=== PATIENT | female | born 1945 | race Caucasian/White ===

== ENCOUNTER 2016-03-23 19:03 | Inpatient (IN) | payer OTHER ==
[~2016-03-23] VITALS: Ht 167.6 cm; Wt 99.4 kg
[~2016-03-23 19:03] MED LIST: ANTI-DIARRHEAL2 MG PO; ASPIRIN81 M1 PO; ATORVASTATIN CA40 MG PO; CLONAZEPAM1 MG PO; COUMADIN5 MG PO; DSS250 MG PO; KEFLEX500 MG PO; LANTUS SOL100 UNITS/ SC; LISINOPRIL10 MG PO; MIRAPEX0.25 MG PO; MULTIPLE VITAMIN PO; PAROXETINE HCL40 MG PO; PLAVIX75 MG PO; RANITIDINE ACID75 MG; RISPERDAL0.25 MG PO; SILVADENE1 %; TRAZODONE HCL50 MG PO; XALATAN0.005 % OP
--- NOTE | 2016-03-23 20:12 | DIAGNOSTIC IMAGING REPORT ---
PROCEDURE: XR CHEST 1 VIEW INDICATION: SHORTNESS OF BREATH, initial encounter TECHNIQUE: Portable AP view 07:30 p.m. COMPARISON: Chest x-ray 09/02/2014 FINDINGS: Lungs are clear. Heart and mediastinum are normal. Thorax is normal. No significant interval change. IMPRESSION: 1. Negative chest.
--- NOTE | 2016-03-23 21:10 | ED NURSING NOTES ---
Clinical Report - Nurses [facility] [address] [place] [address] 03/23/2016 19:03 [id number] TRI[facility] Triage time 19:37 Mar 23 2016. --19:38 Radha Dowling R.N. Chief Complaint: "FLU", FEVER, COUGH and BODY ACHES and possible FLU EXPOSURE. Alert. No acute distress. ( room air). --19:45 Radha Dowling R.N. 19:40 03/23/16. BP: 150/61. HR: 88. RR: 18. O2 saturation: 91%. Temp: 100.7 F. --19:45 Radha Dowling R.N. Weight: 90.7 kg estimated. Height/Length: 65 inches Estimated. BMI: 33.3. --19:36 Radha Dowling R.N. Medications Atorvastatin 80mg x1 tab daily. Combigan Ophthalmic. Hydrochlorothiazide Oral 25 mg, daily. Lantanoprost Patricia 0.005% . Lantus Subcutaneous 85 units, every AM. Lisinopril Oral 40 mg, daily. Methazolamide Oral (Tablet 25 mg) 1 tablet, x2 daily. Paroxetine 40mg x2 tabs daily. Pramipexole 0.25mg x1 tab at bedtime. Ranitidine HCl Oral 150 mg, 2x a day. RisperiDONE Oral (Tablet Dispersible 0.5 mg) 1 tablet, 2x a day. --19:48 Radha Dowling R.N. Timolol Mal Patricia 0.5% OP - 1 gtt x2 daily. TraZODone HCl Oral 50 mg, 1 1/2 tab, at bedtime. Xarelto Oral (Tablet 15 mg) 1 tablet, daily. --19:48 Radha Dowling R.N. Allergies morphine. Penicillin. Sulfa Antibiotics. --19:48 Radha Dowling R.N. History Arrived by EMS. Historian: patient. Primary physician (Dr. Retana). Onset. (2 days). 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 Oxygen administered by nonrebreather mask. Finger stick glucose performed (268). Pulse oximeter applied (88). Normal sinus rhythm. Rate: 80. PHENERGAN 6.25 mg X1 IVP given by EMS. Temp: 101.2. PAST MEDICAL HX: Has not received seasonal influenza immunization. SOCIAL HX: Former smoker. No alcohol use or drug use. FUNCTIONAL ASSESSMENT: Functional assessment performed: requires assistance with the activities of daily living; cognitive impairment- prior CVA. PMH of Stroke, affected the Right Side pt stated, pt leans to the Right. --19:45 Radha Dowling R.N. PROBLEMS: Hypoglycemia. MRSA Infection. Dyspnea. UTI - Urinary Tract Infection. DVT - Deep Venous Thrombosis. Renal Insufficiency. Bronchitis. Blindness. Wound Infection. TIA - Transient Ischemic Attack. Concussion. Abrasion(s). Fall. Colon Cancer. Tetanus Status. Vomiting. Abdominal Pain. Immunizations. LNMP - Last Normal Menstrual Period. Myofascial Strain. Contusion. Anxiety Reaction. Arthritis. Back Pain. Coronary Artery Disease. Cataracts. CVA - Cerebrovascular Accident. Depression. Diabetes Mellitus. Hyperlipidemia. Peripheral Vascular Disease. Gastroesophageal Reflux Disease. --19:49 Radha Dowling R.N. ADDITIONAL SURGERIES: Abdominal Aortic Aneurysm Repair. Appendectomy. Colostomy. Colostomy takedown . Tonsillectomy. --19:49 Radha Dowling R.N. 19:44 03/23/2016 Site #1 started prior to arrival by EMS via IV in the left hand with an 22g angiocath. --19:44 Radha Dowling R.N. PHYSICAL ASSESSMENT To room via stretcher. GENERAL / NEURO / PSYCH: Appears in pain. She has had weakness. ( body aches, pt states she hurts when we move her). RESPIRATORY: ( RR 28, 89 % Room Air). SKIN: Hot skin. ( axilla and groin are hot to touch). --19:46 Radha Dowling R.N. NURSING PROGRESS NOTES Oxygen administered by nasal cannula at 2 liters. Pulse oximeter applied. Patient gowned. Catheterized urine collected with return of yellow-colored clear urine; sample sent to lab for urinalysis. Specimen labeled in the presence of the patient (collected by PEDRO Garcia with assist of PEDRO Sawyer). Flu swab obtained by RN. Labeled in the presence of the patient and sent to lab (collected by PEDRO Sawyer). Patient identifiers checked. Call light placed in reach. Side rails up x 2. Bed placed in lowest position. Brakes of bed on. ( Dr. Ordonez has assessed pt on arrival.). --19:48 Radha Dowling R.N. ( Repositioned, Socks applied. [place].). --19:48 Radha Dowling R.N. ( Med list in progress. Cannot be confirmed at this time.). --19:49 Radha Dowling R.N. 20:11 03/23/2016 Site #2 started via IV in the right antecubital space with an 20g angiocath, with aseptic technique and good blood return; one attempt. Blood drawn: rainbow set and cultures x1. Sent to the lab. Saline lock flushed with 10 mL saline (lactic and acetone). --20:11 Radha Dowling R.N. 20:12 03/23/2016 Started bag #1 1000 mL IV Fluids IV NS (Saline); at 1000 mL/hr over 1 hour(s) via site #2 via IV pump. IV patency established. IV site checked: no pain, redness, or swelling. IV flushed thoroughly pre- and post-medication administration. Completed per protocol. --20:12 Radha Dowling R.N. ( Lab here for draw. BC #2.). --20:12 Radha Dowling R.N. 20:12 03/23/16. BP: 124/73. HR: 88. RR: 18. --20:13 Radha Dowling R.N. 22:18 03/23/16. BP: 135/60. HR: 80. --22:19 Radha Dowling R.N. The patient is resting quietly and sleeping. --22:19 Radha Dowling R.N. 21:50 03/23/2016 IV Fluids IV NS Discontinued: bag #1 completed. Total amount infused: 100 mL. --22:20 Radha Dowling R.N. 22:52 03/23/2016 Tylenol (Acetaminophen) PO 650 mg given. Allergies verified and confirmed 5 rights. --22:52 Radha Dowling R.N. 22:53 03/23/2016 Started bag #1 1000 mL IV Fluids IV LACTATED RINGERS; at 125 mL/hr over 8 hour(s) via site #2 via IV pump. --22:57 Radha Dowling R.N. 23:37 03/23/16. BP: 132/45. HR: 85. RR: 20. O2 saturation: 94%. Temp: 100.2 F. Pain level now 510. --23:38 Radha Dowling R.N. 2 liters by nasal cannula reapplied. Pulse oximeter applied. Reassurance given. ( pt placed in a hospital bed and moved to room 6. Oral care and IV hydration. Pt is dry.). --23:38 Radha Dowling R.N. Care transferred and report given (PEDRO Christian). --23:38 Radha Dowling R.N. 00:20 pt sleeping with HOB elevated. no resp distress noted. RR at 24 unlabored. --00:44 Anahi Snyder R.N. 02:00 03/24/16. BP: 117/48. HR: 70. RR: 20 (unlabored). O2 saturation: 95% at 2 liters/minute. O2 started via nasal cannula. --02:17 Anahi Snyder R.N. 02:00 pt sleeping soundly, HOB elevated. no resp distress noted. --02:17 Anahi Snyder R.N. 03:00 03/24/16. BP: 134/58. HR: 70. RR: 22 (unlabored). O2 saturation: 95% at 2 liters/minute. O2 started via nasal cannula. --03:45 Anahi Snyder R.N. 03:00 pt continues to sleep with HOB elevated. no resp distress noted. --03:45 Anahi Snyder R.N. 05:30 pt sleeping with HOB elevated. no resp distress noted. --05:50 Anahi Snyder R.N. 05:00 03/24/16. BP: 141/57. HR: 71. RR: 24 (unlabored). O2 saturation: 95% at 2 liters/minute. O2 started via nasal cannula. --05:56 Anahi Snyder R.N. pt called she was wet and cold. pt's attends saturated with urine and some stool. pt cleaned with 2 person assist. new attends and gown placed on pt. 2 chucks placed under pt. --06:45 Anahi Snyder R.N. 06:45 03/24/16. Temp: 101.8 F (oral). --06:45 Anahi Snyder R.N. 06:50 03/24/2016 Tylenol (Acetaminophen) PO Tablets 650 mg given. Allergies verified and confirmed 5 rights. --07:14 Anahi Snyder R.N. 07:00 03/24/2016 IV Fluids IV LACTATED RINGERS Discontinued: bag #2 completed. Total amount infused: 1000 ml mL. IV patency established. IV site checked: no pain, redness, or swelling. IV flushed thoroughly. --07:16 Anahi Snyder R.N. at 06:55 pt had another BM, pt cleaned placed new attends, sent stool sample to lab, changes linens and chucks with 2 person assist. Total time with 1 RN 45 min, total time with 2 RNs 30 min. --07:21 Anahi Snyder R.N. Care transferred and report given (Selene, PEDRO). --07:22 Anahi Snyder R.N. ( Pt resting quietly, not disturbed at this time. IVF's infusing on pump). --07:35 Selene Tripathi R.N. 07:15 03/24/2016 Started bag #3 1000 mL IV Fluids IV LACTATED RINGERS; at 125 mL/hr via site #2 via IV pump. (CORRECTION ON IV BAG NUMBER, ACTUALLY #3 IS FULL AT THIS TIME, [id number]). --07:41 Selene Tripathi R.N. ( Assisted patient with positioning and gave some water. Spoke with MD who states patient can have a clear diet advanced as tolerated.). --09:01 Chano Calderón R.N. 09:46 03/24/16. ( Pt incontinent of large amount of liquid stools, 2 person assist to clean pt up, jake care and linen change done. Pt still passing liquid, incontinent stools so placed on side with lots of padding, and will recheck in a little while, and clean if needed.). --09:46 Selene Tripathi R.N. 09:52 03/24/2016 Tamiflu PO 75 mg given. Confirmed 5 rights. --10:02 Selene Tripathi R.N. 09:53 03/24/2016 Demerol (Meperidine HCl) IVP 12.5 mg given over 1 minute(s) via site #2. Confirmed 5 rights. --10:03 Selene Tripathi R.N. 10:17 03/24/16. BP: 94/50. HR: 71. RR: 21. O2 saturation: 94% on nasal cannula at 2 liters/minute. Pain level now: 010. --10:18 Selene Tripathi R.N. 11:00 03/24/16. BP: 94/33. HR: 71. RR: 20. O2 saturation: 93%. --12:07 Leida Chester 12:09 03/24/16. BP: 116/40. HR: 69. RR: 20. O2 saturation: 97%. --12:09 Leida Chester 17:25 03/24/2016 IV Fluids IV LACTATED RINGERS Continued: upon transfer at the rate of 125 mL/hr. 0 mL remaining bag #2. IV patency established. IV site checked: no pain, redness, or swelling. IV flushed thoroughly. --19:25 Chano Calderón R.N. DISPOSITION / DISCHARGE Departure time: 15:Mar 24 2016. Admitted to the Critical Care Unit. ( Report given to OFFICER LIEUTENANT. Transportation called.). --15:01 Chano Calderón R.N. 14:00 03/24/16. BP: 131/41. HR: 72. RR: 18. O2 saturation: 94%. Temp: 98.7 F. Pain level now: 210. --15:01 Chano Calderón R.N. Locked/Released at 03/24/2016 19:25 by Chano Calderón R.N.
--- NOTE | 2016-03-23 21:10 | ED ORDER SUMMARY ---
..... Patient: GISSELLE WILSON OrderSheet [facility] VisitID: [id number] [address] [place] [address] 71y, F Registration Date/Time: 03/23/2016 ORDER SHEET Weight: 90.7 kg (estimated) Allergies: morphine, Penicillin, Sulfa Antibiotics GENERAL ORDERS: Chest 1V Urgent (19:31 03/23/2016 Ajit Cruz) (19:46 MCampbell) Blood Culture (No) (N/A) Urgent (19:33 03/23/2016 Ajit Cruz) (Ack 19:59 DEouse ER Tech1) (20:12 SBalde R.N.) CBC w Diff Urgent (:03/23/2016 Ajit Cruz) (Ack 19:59 NHouse ER Tech1) (20:12 SBalde R.N.) CMP Urgent (19:03/23/2016 Ajit Cruz) (Ack 19:59 NHouse ER Tech1) (20:12 SBalde R.N.) UA-Culture if indicated Urgent (19:33 03/23/2016 Ajit Cruz) (19:56 SBalde R.N.) (Ack 19:59 NHouse ER Tech1) Amylase Urgent (19:03/23/2016 Ajit Cruz) (Ack 19:59 NHouse ER Tech1) (20:12 SBalde R.N.) Lipase Urgent (19:03/23/2016 Ajit Cruz) (Ack 19:59 NHouse ER Tech1) (20:12 SBalde R.N.) Acetone, Serum Urgent (19:33 03/23/2016 Ajit Cruz) (Ack 19:59 NHouse ER Tech1) (20:12 SBalde R.N.) Lactic Acid for Sepsis Protocol Urgent (19:03/23/2016 Ajit Cruz) (Ack 19:59 NHouse ER Tech1) (20:12 SBalde R.N.) PCT (Procalcitonin) Urgent (19:03/23/2016 Ajit Cruz) (Ack 19:59 NHouse ER Tech1) (20:12 SBalde R.N.) Rapid Influenza Screen (Nasal Pharyngeal) (nose) Urgent (20:32 03/23/2016 SBalde R.N. per protocol) (Ack 21:13 NHouse ER Tech1) (21:13 NHouse ER Tech1) Stool for C. Difficile Urgent (07:21 03/24/2016 LSullivan R.N. verbal order read back to Junito Cruz) (Ack 7:27 Bjorn) (7:35 LSullivan R.N.) Blood Culture (No) (N/A) Urgent (09:45 03/24/2016 Ajit Cruz) (Ack 10:06 TBergley) (10:34 TBergley) ABG (G) Urgent (09:46 03/24/2016 Ajit Cruz) (10:06 TBergley) MEDICATION ORDERS: Tylenol PO 650 mg (NOW) (22:20 03/23/2016 María Elena Harp verbal order read back to Ajit Cruz) (22:52 SBalde R.N.) - (Tamiflu 75 mg PO x 1 now) (09:46 03/24/2016 Ajit Cruz) (10:02 Zach R.N.) IV FLUIDS: IV NS : initial bolus none -, then 1000 mL/hr for X1 (NOW) (19:32 03/23/2016 Ajit Cruz) (20:12 RODOLFOalde R.N.) Zofran IV 4 mg (NOW) (19:34 03/23/2016 Ajit Cruz) (Ack 20:12 SBalde R.N.) IV Lactated Ringers : initial bolus none -, then 125 mL/hr (NOW) (22:53 03/23/2016 María Elena RMargauxNMargaux verbal order read back to Ajit Cruz) (22:57 María Elena MichaelN.) Demerol IV 12.5 mg (HIGH ALERT MEDICATION, NOW) (09:17 03/24/2016 Ajit Cruz) (10:03 Lizbetivan R.N.) ORDER SHEET NOTES: [Electronically signed by Chano Calderón R.N. (19:25 03/24/2016)] [Electronically signed by Yahir Ordonez Dr. (22:50 03/24/2016)] [Electronically locked/signed by Chano Calderón R.N. (19:25 03/24/2016)]
--- NOTE | 2016-03-23 21:10 | ED ORDER SUMMARY ---
..... Patient: GISSELLE WILSON OrderSheet [facility] VisitID: [id number] [address] [place] [address] 71y, F Registration Date/Time: 03/23/2016 ORDER SHEET Weight: 90.7 kg (estimated) Allergies: morphine, Penicillin, Sulfa Antibiotics GENERAL ORDERS: Chest 1V Urgent (19:31 03/23/2016 Ajit Cruz) (19:46 MCampbell) Blood Culture (No) (N/A) Urgent (19:33 03/23/2016 Ajit Cruz) (Ack 19:59 WVouse ER Tech1) (20:12 SBalde R.N.) CBC w Diff Urgent (:03/23/2016 Ajit Cruz) (Ack 19:59 NHouse ER Tech1) (20:12 SBalde R.N.) CMP Urgent (19:03/23/2016 Ajit Cruz) (Ack 19:59 NHouse ER Tech1) (20:12 SBalde R.N.) UA-Culture if indicated Urgent (19:33 03/23/2016 Ajit Cruz) (19:56 SBalde R.N.) (Ack 19:59 NHouse ER Tech1) Amylase Urgent (19:03/23/2016 Ajit Cruz) (Ack 19:59 NHouse ER Tech1) (20:12 SBalde R.N.) Lipase Urgent (19:03/23/2016 Ajit Cruz) (Ack 19:59 NHouse ER Tech1) (20:12 SBalde R.N.) Acetone, Serum Urgent (19:33 03/23/2016 Ajit Cruz) (Ack 19:59 NHouse ER Tech1) (20:12 SBalde R.N.) Lactic Acid for Sepsis Protocol Urgent (19:03/23/2016 Ajit Cruz) (Ack 19:59 NHouse ER Tech1) (20:12 SBalde R.N.) PCT (Procalcitonin) Urgent (19:03/23/2016 Ajit Cruz) (Ack 19:59 NHouse ER Tech1) (20:12 SBalde R.N.) Rapid Influenza Screen (Nasal Pharyngeal) (nose) Urgent (20:32 03/23/2016 SBalde R.N. per protocol) (Ack 21:13 NHouse ER Tech1) (21:13 NHouse ER Tech1) Stool for C. Difficile Urgent (07:21 03/24/2016 LSullivan R.N. verbal order read back to Junito Cruz) (Ack 7:27 Bjorn) (7:35 LSullivan R.N.) Blood Culture (No) (N/A) Urgent (09:45 03/24/2016 Ajit Cruz) (Ack 10:06 TBergley) (10:34 TBergley) ABG (G) Urgent (09:46 03/24/2016 Ajit Cruz) (10:06 TBergley) MEDICATION ORDERS: Tylenol PO 650 mg (NOW) (22:20 03/23/2016 María Elena Harp verbal order read back to Ajit Cruz) (22:52 SBalde R.N.) - (Tamiflu 75 mg PO x 1 now) (09:46 03/24/2016 Ajit Cruz) (10:02 Zach R.N.) IV FLUIDS: IV NS : initial bolus none -, then 1000 mL/hr for X1 (NOW) (19:32 03/23/2016 Ajit Cruz) (20:12 RODOLFOalde R.N.) Zofran IV 4 mg (NOW) (19:34 03/23/2016 Ajit Cruz) (Ack 20:12 SBalde R.N.) IV Lactated Ringers : initial bolus none -, then 125 mL/hr (NOW) (22:53 03/23/2016 María Elena RMargauxNMargaux verbal order read back to Ajit Cruz) (22:57 María Elena MichaelN.) Demerol IV 12.5 mg (HIGH ALERT MEDICATION, NOW) (09:17 03/24/2016 Ajit Cruz) (10:03 Lizbetivan R.N.) ORDER SHEET NOTES: [Electronically signed by Chano Calderón R.N. (19:25 03/24/2016)] [Electronically signed by Yahir Ordonez Dr. (22:50 03/24/2016)] [Electronically locked/signed by Chano Calderón R.N. (19:25 03/24/2016)]
--- NOTE | 2016-03-23 21:10 | ED CLINICAL REPORT ---
Clinical Report - Physicians/Mid Levels [facility] [address] [place] [address] 03/23/2016 19:03 Patient: GISSELLE WILSON Time Seen: 19:14; initial patient contact. Arrived- By ambulance. Historian- patient. HISTORY OF PRESENT ILLNESS Chief Complaint: "FLU" and possible FLU EXPOSURE. This started yesterday and is still present. It was gradual in onset. The patient has had a cough, sinus drainage, nasal congestion, fever and chills. She has had muscle aches and a nasal discharge. No skin rash, headache, sore throat or difficulty breathing. The patient has had contact with a sick individual with suspected "flu". Similar symptoms previously: None. Recent medical care: Not recently seen/assessed. REVIEW OF SYSTEMS The patient has had fever, chills, fatigue, sinus pain and fatigue. She has had diarrhea and nausea. No palpitations, calf pain or abdominal pain. All systems otherwise negative, except as recorded above. PAST HISTORY Hypoglycemia. MRSA Infection. Dyspnea. UTI - Urinary Tract Infection. DVT - Deep Venous Thrombosis. Renal Insufficiency. Bronchitis. Blindness. Wound Infection. TIA - Transient Ischemic Attack. Concussion. Abrasion(s). Fall. Colon Cancer. Tetanus Status. Vomiting. Abdominal Pain. Immunizations. LNMP - Last Normal Menstrual Period. Myofascial Strain. Contusion. Anxiety Reaction. Arthritis. Back Pain. Coronary Artery Disease. Cataracts. CVA - Cerebrovascular Accident. Depression. Diabetes Mellitus. Hyperlipidemia. Peripheral Vascular Disease. Gastroesophageal Reflux Disease. SURGERIES: Abdominal Aortic Aneurysm Repair. Appendectomy. Colostomy. Colostomy takedown . Tonsillectomy. Medications: Timolol Mal Patricia 0.5% OP - 1 gtt x2 daily. TraZODone HCl Oral 50 mg, 1 1/2 tab, at bedtime. Xarelto Oral (Tablet 15 mg) 1 tablet, daily. Atorvastatin 80mg x1 tab daily. Combigan Ophthalmic. Hydrochlorothiazide Oral 25 mg, daily. Lantanoprost Patricia 0.005% . Lantus Subcutaneous 85 units, every AM. Lisinopril Oral 40 mg, daily. Methazolamide Oral (Tablet 25 mg) 1 tablet, x2 daily. Paroxetine 40mg x2 tabs daily. Pramipexole 0.25mg x1 tab at bedtime. Ranitidine HCl Oral 150 mg, 2x a day. RisperiDONE Oral (Tablet Dispersible 0.5 mg) 1 tablet, 2x a day. Allergies: morphine. Penicillin. Sulfa Antibiotics. SOCIAL HISTORY Former smoker. No alcohol use or drug use. ADDITIONAL NOTES The nursing notes have been reviewed with agreement regarding the chief complaint, PMH and patient medications and allergies. PHYSICAL EXAM Vital Signs: 03/23/2016 19:40 BP: 150/61. HR: 88. RR: 18. O2 saturation: 91%. Temp: 100.7 F. Have been reviewed. Hypertensive. Heart rate normal. Respiratory rate normal. Febrile. Oxygen saturation low. Appearance: Alert. ( ill appearing). Eyes: Eyes normal inspection. ENT: Dry mucous membranes present. CVS: Normal heart rate and rhythm. Heart sounds normal. Respiratory: No respiratory distress. Breath sounds normal. Abdomen: Soft. Mild tenderness diffusely. No guarding or rebound tenderness. Skin: Poor skin turgor, mild. Extremities: No calf tenderness. No lower extremity edema. Neuro: Oriented X 3. LABS, X-RAYS, AND EKG Chest X-ray: No acute disease. Normal lung markings present. No infiltrate. Views: AP. The X-rays were independently viewed by me, interpreted by the radiologist and contemporaneously by me and discussed with the radiologist. Interpretation time: 2029. Laboratory Tests: ABG: (NEREIDA: 03/24/2016 09:46) ( MsgRcvd 03/24/2016 10:09) Final results Test Result Flag Units (Reference) FIO2 0.21 L % (20-101) MODIFIED MOUNIKA TEST POSITIVE? YES ABG RESP RATE SETTINGS 16 /MIN ARTERIAL BLOOD GAS pH 7.42 (7.35-7.45) ABG PCO2 39.4 mmHg (35-45) ABG PO2 55.4 L mmHg (60.0-80.0) ABG BASE EXCESS 1.3 H mmol/L (-6.0--6.0) ABG HCO3 25.8 mmol/L (20.0-26.0) ABG TCO2 27.0 mmol/L (24.0-30.0) ABG MaOpX0a 50.1 H mmHg (7.0-14.0) *NOTE: Normal rangeis based on aFIO2 of 21% ABG SAT O2 90.5 L % (95.1-100.0) ABG TOTAL HEMOGLOBIN 11.1 L g/dL (12.0-16.0) ABG O2 HEMOGLOBIN 88.6 L % (95.0-100.0) ABG CARBOXYHEMOGLOBIN 1.8 H % (0.5-1.5) ABG METHEMOGLOBIN 0.3 L % (0.4-1.5) ABG RHEMOGLOBIN 9.3 % UA-Culture if indicated: (NEREIDA: 03/23/2016 19:30) ( MsgRcvd 03/23/2016 19:54) Final results Test Result Flag Units (Reference) URINE COLOR YELLOW URINE APPEARANCE CLEAR URINE GLUCOSE TRACE (NEGATIVE) URINE BILIRUBIN NEGATIVE (NEGATIVE) URINE KETONE NEGATIVE (NEGATIVE) URINE SPECIFIC GRAVITY 1.020 (1.010-1.030) URINE PH 6.0 (5.0-8.0) URINE PROTEIN TRACE (NEGATIVE) URINE UROBILINOGEN 0.2 EU/dL (0.2-1.0) URINE NITRITE NEGATIVE (NEGATIVE) URINE BLOOD 2+ (NEGATIVE) URINE LEUK ESTERASE NEGATIVE (NEGATIVE) URINE RBC NONE SEEN rbc/hpf (0-1) URINE WBC RARE wbc/hpf (0-1) URINE EPITHELIAL CELLS 0-1 EPI/hpf (0-5) URINE BACTERIA NONE SEEN (NONE SEEN) URINE COMMENT CULT NOT INDICATED 1+ AMORPHOUSURINE CULTURES ARE SET-UP BASED ON THE FOLLOWING CRITERIA:POSITIVE NITRITEPOSITIVE LEUKOCYTE ESTERASEGREATER THAN 10 WHITE BLOOD CELLSMODERATE (2+) OR GREATER BACTERIA CBC w Diff: (NEREIDA: 03/23/2016 20:09) ( MsgRcvd 03/23/2016 20:26) Final results Test Result Flag Units (Reference) WHITE BLOOD COUNT 6.9 K/uL (4.5-11.5) RED BLOOD COUNT 4.50 M/uL (4.00-5.20) HEMOGLOBIN 12.9 gm/dL (12.0-16.0) HEMATOCRIT 38.7 % (36.0-46.0) MEAN CELL VOLUME 86 fL (80-100) MEAN CORPUSCULAR HGB 29 pg (26-34) MEAN CORPUSCULAR HGB CONC 33 g/dL (31-37) RED CELL DISTRIBUTION WIDTH 12.6 % (11.6-14.8) PLATELET COUNT 62 L K/uL (150-400) NEUTROPHIL % 78.1 H % (50-75) LYMPH % 10.8 L % (25-40) MONO % 10.3 % (3-14) EOSINOPHIL % 0.4 % (0-4) BASOPHIL % 0.4 % (0-2) Lactate, Serum: (NEREIDA: 03/23/2016 20:09) ( [facility] 03/23/2016 20:51) Final results Test Result Flag Units (Reference) LACTIC ACID 0.9 mmol/L (0.4-2.0) [id number]: (NEREIDA: 03/23/2016 20:09) ( [facility] 03/23/2016 21:50) Final results Test Result Flag Units (Reference) PROCALCITONIN <0.5 ng/mL (0-0.5) PCT Concentration: Interpretation : Risk/option for action PCT <=0.5 ng/mL : Systemic : Low risk forinfection(sepsis): progression to severeis not likely. : systemic infection.Local bacterial : CAUTION-PCT levelsinfection is : below 0.5 ng/mL do notpossible. : exclude an infection,because localizedinfections (withoutsystemic signs) may beassociated with suchlow levels. If PCT ismeasured very earlyafter a bacterialchallenge (usually <6hours), these valuesmay still be low. Inthis case PCT shouldbe re-assessed 6-24hours later. PCT >0.5 and : Systemic infection: Moderate risk for<= 2 ng/mL : (sepsis) is : progression to severepossible, but : systemic infection.other conditions : The patient should beare known to : closely monitoredelevate PCT. : both clinically andby re-assessing PCTwithin 6-24 hours. PCT > 2 ng/mL : Systemic infection: High risk for(sepsis) is likely: progression to severeunless other : systemic infection.causes are known. : PCT >= 10 ng/mL : Important systemic: High likelihood ofinflammatory : severe sepsis orresponse, almost : septic shock.exclusively due to:severe bacterial :sepsis or septic :shock. : CMP: (NEREIDA: 03/23/2016 20:09) ( MsgRcvd 03/23/2016 21:26) Final results Test Result Flag Units (Reference) GLUCOSE 194 H mg/dL (70-110) BUN 20 H mg/dL (7-18) CREATININE 1.5 H mg/dL (0.6-1.3) Estimated GFR 36.59 mL/min Estimated GFR- 44.35 mL/min Note: Persistent reduction over 3 months in eGFR<60 mL/min/1.73 m2 defines CKD. Patients with eGFR values>=60 mL/min/1.73 m2 may also have CKD if evidence ofpersistent proteinuria. Additional information may be foundat www.kidney.org. SODIUM 136 mmol/L (136-145) POTASSIUM 4.6 mmol/L (3.5-5.1) CHLORIDE 101 mmol/L (98-107) CARBON DIOXIDE 29 mmol/L (21-32) CALCIUM 7.9 L mg/dL (8.5-10.1) TOTAL PROTEIN 6.9 g/dL (6.4-8.2) ALBUMIN 3.2 L g/dL (3.3-5.0) BILIRUBIN, TOTAL 0.5 mg/dL (0.0-1.0) ALKALINE PHOSPHATASE 57 U/L (46-116) AST (SGOT) 23 U/L (15-37) ALT (SGPT) 22 U/L (12-78) LIPASE 177 U/L (73-393) AMYLASE 70 U/L (25-115) ACETONE, SERUM QUALITATIVE NEGATIVE (NEGATIVE) Stool for C. Difficile: (NEREIDA: 03/24/2016 07:10) ( [facility] 03/24/2016 08:19) Final results Test Result Flag Units (Reference) CDT SOURCE STOOL C-DIFFICILE TOXIN A/B CDT RESULT:: NEGATIVE Rapid Influenza Screen: (NEREIDA: 03/23/2016 19:16) ( [facility] [place] 03/23/2016 20:50) Final results SPECIMEN DESCRIPTION: NOSE Test Result Flag Units (Reference) RAPID INFLUENZA SCREEN CALLED TO: CARLOS -- DATE: 03/23/16 INFLUENZA A: POSITIVE SCREEN FOR INFLUENZA A INFLUENZA B: NEGATIVE SCREEN FOR INFLUENZA B . PROGRESS AND PROCEDURES Course of Care: 22:45 03/23/16. Case signed out to Dr. Ortez. Pt has Flu A and issue is hypoxia, 88% on RA and is not on home O2. No beds here and we are actively searching for a bed at another hospital. Discussed case with on-call health care provider, (13:[address] Nugent(covering for Dr. Retana). Will place in obs.). Reviewed test results and need for additional work-up. Agreed upon decision to place in observation. Health care provider will see patient in hospital. Observation orders written. Disposition: Observation in Acute Care. Condition: stable. CLINICAL IMPRESSION Influenza type A with upper respiratory infection and gastroenteritis. Hypoxia. (Electronically signed by Yahir Ordonez Dr. 03/24/2016 22:50)
[2016-03-24 15:12] VITALS: BP 137/67
[2016-03-24] MEDS ORDERED: LANTUS SOL100 UNITS/ (16:35)
[2016-03-24] MEDS ORDERED: SERTRALINE HCL50 MG PO (16:39)
[2016-03-24] MEDS ORDERED: ATORVASTATIN CA40 MG PO (16:47)
[2016-03-24] MEDS ORDERED: ACID REDUCER150 MG PO (16:47)
[2016-03-24] MEDS ORDERED: RISPERDAL1 MG PO (16:48)
[2016-03-24] MEDS ORDERED: MIRAPEX0.25 MG PO (16:48)
[2016-03-24] MEDS ORDERED: HYDROCHLOROTHIA25 MG PO (16:50)
[2016-03-24] MEDS ORDERED: VENTOLIN HFA IN (16:50)
[2016-03-24] MEDS ORDERED: XARELTO10 MG PO (16:51)
[2016-03-24] MEDS ORDERED: NOVOLOG PE100 UNITS/ SC (16:52)
[2016-03-24] MEDS ORDERED: NUEDEXTA1 CAP PO (16:53)
[2016-03-24 18:54] VITALS: BP 120/50
[2016-03-24 22:29] VITALS: BP 132/66
--- NOTE | 2016-03-24 22:50 | ED MAR SUMMARY ---
..... Medication Administration Record Located Within [facility] [address] [place] [address] Patient: GISSELLE WILSON Visit ID: [id number] 71y, F Weight: 90.7 kg Height/Length: 65 in BMI: 33.3 ALLERGIES: morphine, Penicillin, Sulfa Antibiotics Start 20:12 03/23/2016 Radha Dowling R.N., Stop 21:50 03/23/2016 aRdha Dowling R.N. Medication Administered: IV NS (SALINE), Dose: IV Fluids over 1 hour(s), Rate: 1000 mL/hr, Dispensed: 1000 mL bag, Site: #2 right AC. Medication Ordered: IV NS : initial bolus none -, then 1000 mL/hr for X1 (NOW). Given 22:52 03/23/2016 Radha Dowling R.N. Medication Administered: TYLENOL [PO] (ACETAMINOPHEN), Dose: 650 mg PO. Medication Ordered: Tylenol PO 650 mg (NOW). Start 22:53 03/23/2016 Radha Dowling R.N., Stop 07:00 03/24/2016 Anahi Snyder R.N. Medication Administered: IV LACTATED RINGERS, Dose: IV Fluids over 8 hour(s), Rate: 125 mL/hr, Dispensed: 1000 mL bag, Site: #2 right AC. Medication Ordered: IV Lactated Ringers : initial bolus none -, then 125 mL/hr (NOW). Given 06:50 03/24/2016 Anahi Snyder R.N. Medication Administered: TYLENOL [PO] (ACETAMINOPHEN), Dose: 650 mg Tablets PO. Medication Ordered: Tylenol PO 650 mg (NOW). Start 07:15 03/24/2016 Selene Tripathi R.N., Continued Upon Transfer 17:25 03/24/2016 Chano Calderón R.N. Medication Administered: IV LACTATED RINGERS, Dose: IV Fluids, Rate: 125 mL/hr, Dispensed: 1000 mL bag, Site: #2 right AC. Medication Ordered: IV Lactated Ringers : initial bolus none -, then 125 mL/hr (NOW). Given 09:52 03/24/2016 Selene Tripathi R.N. Medication Administered: TAMIFLU [PO], Dose: 75 mg PO. Medication Ordered: - (Tamiflu 75 mg PO x 1 now). Given 09:53 03/24/2016 Selene Tripathi R.N. Medication Administered: DEMEROL [IVP] (MEPERIDINE HCL), Dose: 12.5 mg IVP over 1 minute(s), Site: #2 right AC. Medication Ordered: Demerol IV 12.5 mg (HIGH ALERT MEDICATION, NOW).
--- NOTE | 2016-03-24 22:50 | ED MED RECONCILIATION SUMMARY ---
Patient: GISSELLE WILSON Medication Reconciliation Report [facility] VisitID: [id number] [place] [address] 71y, F Registration Date/Time: 03/23/2016 Weight: 90.7 kg Height/Length: 65 in. BMI: 33.3 ALLERGIES: morphine, Penicillin, Sulfa Antibiotics The patient's Home Medications are listed below: THE FOLLOWING MEDICATIONS NEED TO BE RECONCILED: Atorvastatin 80mg x1 tab daily Combigan Ophthalmic Hydrochlorothiazide Oral 25 mg, daily Lantanoprost Patricia 0.005% Lantus Subcutaneous 85 units, every AM Lisinopril Oral 40 mg, daily Methazolamide Oral (25 mg) 1 tablet, x2 daily Paroxetine 40mg x2 tabs daily Pramipexole 0.25mg x1 tab at bedtime Ranitidine HCl Oral 150 mg, 2x a day RisperiDONE Oral (0.5 mg) 1 tablet, 2x a day Timolol Mal Patricia 0.5% OP - 1 gtt x2 daily TraZODone HCl Oral 50 mg, 1 1/2 tab, at bedtime Xarelto Oral (15 mg) 1 tablet, daily The source(s) of the original Home Medication information: Not obtained. The following Medications were given to the patient in the Emergency Department: IV NS IV Fluids bolus 0, then 1000 mL/hr, administered: 03/23/2016 8:12:00 PM Tylenol [PO] PO 650 mg, administered: 03/23/2016 10:52:00 PM IV LACTATED RINGERS IV Fluids bolus 0, then 125 mL/hr, administered: 03/23/2016 10:53:00 PM Tylenol [PO] PO 650 mg, administered: 03/24/2016 6:50:00 AM IV LACTATED RINGERS IV Fluids bolus 0, then 125 mL/hr, administered: 03/24/2016 7:15:00 AM Tamiflu [PO] PO 75 mg, administered: 03/24/2016 9:52:00 AM Demerol [IVP] IVP 12.5 mg, administered: 03/24/2016 9:53:00 AM The following Medications were prescribed to the patient: None.
--- NOTE | 2016-03-24 22:50 | ED DISCHARGE INSTRUCTIONS ---
Patient: GISSELLE WILSON General Instructions [facility] VisitID: [id number] [address] [place] [address] 71y, F Registration Date/Time: 03/23/2016 Influenza type A with upper respiratory infection and gastroenteritis. Hypoxia. (Electronically signed by Yahir Ordonez Dr. 03/24/2016 22:50)
--- NOTE | 2016-03-24 22:50 | ED MAR SUMMARY ---
..... Medication Administration Record [facility] [address] [place] [address] Patient: GISSELLE WILSON Visit ID: [id number] 71y, F Weight: 90.7 kg Height/Length: 65 in BMI: 33.3 ALLERGIES: morphine, Penicillin, Sulfa Antibiotics Start 20:12 03/23/2016 Radha Dowling R.N., Stop 21:50 03/23/2016 Radha Dowling R.N. Medication Administered: IV NS (SALINE), Dose: IV Fluids over 1 hour(s), Rate: 1000 mL/hr, Dispensed: 1000 mL bag, Site: #2 right AC. Medication Ordered: IV NS : initial bolus none -, then 1000 mL/hr for X1 (NOW). Given 22:52 03/23/2016 Radha Dowling R.N. Medication Administered: TYLENOL [PO] (ACETAMINOPHEN), Dose: 650 mg PO. Medication Ordered: Tylenol PO 650 mg (NOW). Start 22:53 03/23/2016 Radha Dowling R.N., Stop 07:00 03/24/2016 Anahi Snyder R.N. Medication Administered: IV LACTATED RINGERS, Dose: IV Fluids over 8 hour(s), Rate: 125 mL/hr, Dispensed: 1000 mL bag, Site: #2 right AC. Medication Ordered: IV Lactated Ringers : initial bolus none -, then 125 mL/hr (NOW). Given 06:50 03/24/2016 Anahi Snyder R.N. Medication Administered: TYLENOL [PO] (ACETAMINOPHEN), Dose: 650 mg Tablets PO. Medication Ordered: Tylenol PO 650 mg (NOW). Start 07:15 03/24/2016 Selene Tripathi R.N., Continued Upon Transfer 17:25 03/24/2016 Chano Calderón R.N. Medication Administered: IV LACTATED RINGERS, Dose: IV Fluids, Rate: 125 mL/hr, Dispensed: 1000 mL bag, Site: #2 right AC. Medication Ordered: IV Lactated Ringers : initial bolus none -, then 125 mL/hr (NOW). Given 09:52 03/24/2016 Selene Tripathi R.N. Medication Administered: TAMIFLU [PO], Dose: 75 mg PO. Medication Ordered: - (Tamiflu 75 mg PO x 1 now). Given 09:53 03/24/2016 Selene Tripathi R.N. Medication Administered: DEMEROL [IVP] (MEPERIDINE HCL), Dose: 12.5 mg IVP over 1 minute(s), Site: #2 right AC. Medication Ordered: Demerol IV 12.5 mg (HIGH ALERT MEDICATION, NOW).
--- NOTE | 2016-03-24 22:50 | ED MED RECONCILIATION SUMMARY ---
Patient: GISSELLE WILSON Medication Reconciliation Report [facility] VisitID: [id number] [place] [address] 71y, F Registration Date/Time: 03/23/2016 Weight: 90.7 kg Height/Length: 65 in. BMI: 33.3 ALLERGIES: morphine, Penicillin, Sulfa Antibiotics The patient's Home Medications are listed below: THE FOLLOWING MEDICATIONS NEED TO BE RECONCILED: Atorvastatin 80mg x1 tab daily Combigan Ophthalmic Hydrochlorothiazide Oral 25 mg, daily Lantanoprost Patricia 0.005% Lantus Subcutaneous 85 units, every AM Lisinopril Oral 40 mg, daily Methazolamide Oral (25 mg) 1 tablet, x2 daily Paroxetine 40mg x2 tabs daily Pramipexole 0.25mg x1 tab at bedtime Ranitidine HCl Oral 150 mg, 2x a day RisperiDONE Oral (0.5 mg) 1 tablet, 2x a day Timolol Mal Patricia 0.5% OP - 1 gtt x2 daily TraZODone HCl Oral 50 mg, 1 1/2 tab, at bedtime Xarelto Oral (15 mg) 1 tablet, daily The source(s) of the original Home Medication information: Not obtained. The following Medications were given to the patient in the Emergency Department: IV NS IV Fluids bolus 0, then 1000 mL/hr, administered: 03/23/2016 8:12:00 PM Tylenol [PO] PO 650 mg, administered: 03/23/2016 10:52:00 PM IV LACTATED RINGERS IV Fluids bolus 0, then 125 mL/hr, administered: 03/23/2016 10:53:00 PM Tylenol [PO] PO 650 mg, administered: 03/24/2016 6:50:00 AM IV LACTATED RINGERS IV Fluids bolus 0, then 125 mL/hr, administered: 03/24/2016 7:15:00 AM Tamiflu [PO] PO 75 mg, administered: 03/24/2016 9:52:00 AM Demerol [IVP] IVP 12.5 mg, administered: 03/24/2016 9:53:00 AM The following Medications were prescribed to the patient: None.
--- NOTE | 2016-03-24 22:50 | ED DISCHARGE INSTRUCTIONS ---
Patient: GISSELLE WILSON General Instructions [facility] VisitID: [id number] [address] [place] [address] 71y, F Registration Date/Time: 03/23/2016 Influenza type A with upper respiratory infection and gastroenteritis. Hypoxia. (Electronically signed by Yahir Ordonez Dr. 03/24/2016 22:50)
--- NOTE | 2016-03-24 23:15 | HISTORY AND PHYSICAL ---
ADMITTED: 03/24/2016 CHIEF COMPLAINT: 1. Weakness 2. Dehydration 3. Severe diarrhea 4. Nausea and vomiting 5. Fevers, chills, and body aches HISTORY OF PRESENT ILLNESS: This is a 71-year-old female who a couple of days ago started having nausea, vomiting, and severe diarrhea that was watery. She states that simultaneously she started having fevers, chills, and body aches. She has been also having abdominal cramps and an intermittent headache. She does complain of a cough, but it is nonproductive. She says that she only has a mild rhinorrhea and denies any sore throat, earache, or shortness of breath. MEDICAL/SURGICAL HISTORY: 1. Type 2 diabetes, insulin dependent. 2. Recurrent UTIs. 3. Diabetic neuropathy. 4. Anxiety. 5. Vascular insufficiency of the intestine with abdominal pain. 6. Dyslipidemia. 7. Chronic shoulder pain. 8. Allergic rhinitis. 9. Depression. 10. CVA with residual blindness. 11. Hypertension. 12. Glaucoma. 13. Colon cancer, status post partial resection of colon with colostomy and colostomy takedown. 14. Retinal artery occlusion. 15. Inguinal hernia repair. 16. Colonoscopy with biopsies. 17. Bilateral tubal ligations. 18. T&A. 19. C-sections x2. MEDICATIONS: 1. Colace 250 mg p.o. daily. 2. Lantus 90 units subcutaneous daily. 3. Sertraline 50 mg p.o. daily. 4. Lisinopril 40 mg p.o. daily. 5. Ranitidine 150 mg p.o. b.i.d. 6. Latanoprost 0.005% one drop each eye daily. 7. Trazodone 50 mg 1-1/2 tablets p.o. at bedtime. 8. Multivitamin 1 tablet p.o. daily. 9. Imodium 2 tablets p.o. p.r.n. diarrhea. 10. Atorvastatin 40 mg 1 tablet p.o. daily. 11. Risperidone 1 mg p.o. b.i.d. 12. Clonazepam 1 mg p.o. t.i.d. 13. Mirapex 0.25 mg 1 tablet p.o. b.i.d. 14. Hydrochlorothiazide 25 mg p.o. daily. 15. ProAir inhaler 2 puffs inhaled q.4 hours p.r.n. 16. Xarelto 20 mg p.o. daily. 17. NovoLog 15 units subcutaneous with dinner. 18. Nuedexta 20-10 mg 1 tablet p.o. b.i.d. ALLERGIES: 1. PENICILLIN. 2. MORPHINE. 3. CIPRO. 4. BACTRIM. 5. BYETTA. 6. CODEINE. SOCIAL HISTORY: This is a single female who is retired and disabled. She denies any alcohol use. Quit smoking approximately 10 years ago. She does use marijuana intermittently. FAMILY HISTORY: Mother and father are still alive, otherwise noncontributory. REVIEW OF SYSTEMS: A full 12-point review of systems was done and was negative except as per HPI. PHYSICAL EXAMINATION: VITAL SIGNS: Blood pressure is 137/67, pulse is 76, respiratory rate is 20, oxygen saturation is 99% on 2 liters, temperature is 37.6 degrees Celsius. GENERAL: This is an elderly female lying in bed in no apparent distress. HEENT: Head is atraumatic, normocephalic. Pupils equal, round, and reactive to light and accommodation bilaterally. Extraocular muscles are intact bilaterally. Tympanic membranes are nonerythematous. ------- cone of light bilaterally. Oropharynx is tacky and dry, but there is no erythema or exudates. NECK: Trachea is midline. There is no JVD. HEART: S1, S2, regular rate and rhythm. No S3, S4, gallops, or rubs. There is a 2/6 systolic murmur increased at the base. LUNGS: Clear to auscultation bilaterally. ABDOMEN: Soft, nontender, nondistended without hepatosplenomegaly or masses. Bowel sounds are hyperactive. EXTREMITIES: There is no peripheral edema. LAB/IMAGING: White blood cell count 6.9, hemoglobin 12.9, hematocrit 38.7, platelets are 62. Sodium 136, potassium 4.6, chloride 101, bicarbonate 29, BUN of 20, creatinine of 1.5, glucose of 194, calcium 7.9, total protein 6.9, albumin 3.2. Total bilirubin 0.5, alkaline phosphatase 57, AST of 23, ALT of 22, lipase is 177, amylase is 70. Procalcitonin is less than 0.5. Acetone is negative. Lactic acid is 0.9. UA is negative, except for 2+ blood. Flu is influenza A positive. C. difficile is negative. An ABG was done with a pH of 7.42, pCO2 of 39.4. A chest x-ray was negative. IMPRESSION: This is a 71-year-old female with a history of type 2 diabetes, hypertension, pseudobulbar affect, presenting to the hospital with complaints of fever, chills, severe nausea and vomiting, admitted to the hospital for: 1. Dehydration from gastroenteritis. 2. Influenza A with hypoxia. 3. I anticipate this patient is going to require at least a 2-night stay to recover from this illness as she is continuing to have ongoing diarrhea. PLAN: 1. Fluids, Electrolytes, and Nutrition: We will do intravenous fluids for rehydration. 2. Cardiorespiratory, stable: Continue home medications. 3. Gastrointestinal: Gastroenteritis. We will treat supportively and monitor for any complications. Gastroesophageal reflux disease: Continue home medications. 4. Endocrine: Type 2 diabetes. We will slightly decrease her home insulin levels and then titrate as necessary while in the hospital. 5. Psychiatric: The patient has pseudoaffective disorder and will be continued on her Nuedexta and sertraline. 6. Prophylaxis: The patient will be on sequential compression devices for deep venous thrombosis prophylaxis. She is also taking Xarelto incidentally as well. She is starting to advance her diet again; however, will be on famotidine for gastrointestinal ulcer prophylaxis. 7. CODE STATUS: DO NOT RESUSCITATE.
[2016-03-25 02:45] VITALS: BP 148/63
[2016-03-25 06:43] VITALS: BP 133/57
[2016-03-25 10:17] VITALS: BP 128/52
[2016-03-25 14:42] VITALS: BP 104/45
--- NOTE | 2016-03-25 18:39 | DIAGNOSTIC IMAGING REPORT ---
PROCEDURE: US VENOUS - BILATERAL EXT INDICATION: DEVT 01/2016. Recheck since thrombocytopenia TECHNIQUE: Color Doppler duplex imaging of the deep and superficial venous system without and with compression. COMPARISON: Right lower extremity venous duplex ultrasound 01/20/2015. FINDINGS: RIGHT LOWER EXTREMITY: Resolving smaller right lower extremity DVT with residual chronic thrombus in the popliteal vein. Remaining deep and superficial veins are within normal limits. LEFT LOWER EXTREMITY: Deep and superficial venous system of the left lower extremity is within normal limits. There is no evidence of deep vein thrombosis or superficial thrombophlebitis. IMPRESSION: 1. Improved right lower extremity DVT with small residual chronic thrombus in the popliteal vein 2. No evidence of a DVT in the left lower extremity 3. Results discussed with Dr. Soni.
[2016-03-25 18:41] VITALS: BP 118/48
--- NOTE | 2016-03-25 23:45 | Progress Note ---
Subjective General Patient feels mildly improved today. No nausea, vomitting, constipation. Continues to have diarrhea. No chest pain or SOB. Physical Exam Vital Signs / I&Os Vital Signs Date Time Temp Pulse Resp B/P Pulse O2 O2 Flow FiO2 Ox Delivery Rate 03/25 1841 37.2 66 20 118/48 95 03/25 1442 36.9 72 20 104/45 97 03/25 1017 38.1 73 21 128/52 99 Nasal 2.0 Cannula 03/25 0730 Nasal 2.0 Cannula 03/25 0643 37.5 76 21 133/57 97 Nasal 2.0 Cannula 03/25 0245 37.1 81 16 148/63 98 Nasal 2.0 Cannula I&O 03/25 0000 03/24 1600 03/24 0800 Intake Total 490 Output Total Balance 490 General Appearance Alert, Oriented X3, No acute distress Lungs Clear to auscultation, Normal air movement Cardiovascular Regular rate and rhythm, Normal S1 and S2, 3/6 holosystolic murmur increased at the base. Abdomen Normal bowel sounds, Soft, No tenderness Extremities 1+ bilateral LE edema. Assessment and Plan Problem List 1. Influenza A Plan Tamiflu. Improving. 2. Hypoxia Plan Will wean O2 as tolerated. 3. Diarrhea Plan C. Diff negative. Gastroenteritis. Will monitor. 4. Dehydration Plan Improved. 5. Acute renal failure Plan Resolved. 6. Bacteremia Plan 2/4 bottles with gram positive cocci. Started vanco empirically pending final culture results. pending. 7. Thrombocytopenia Plan Will stop xarelto. Consider bleeding vs. TTP vs. DIC vs. other. Labs ordered. 8. DVT (deep venous thrombosis) Plan US today showed chronic DVT's. Will not start anticoagulant for now due to thrombocytopenia.
[2016-03-25 23:53] VITALS: BP 122/49
[2016-03-26 02:48] VITALS: BP 111/55
[2016-03-26 07:01] VITALS: BP 143/60
[2016-03-26 10:12] VITALS: BP 116/50
--- NOTE | 2016-03-26 10:55 | Progress Note ---
Subjective General This is an 71-year-old female who a couple of days ago started having nausea, vomiting, and severe diarrhea that was watery. She states that simultaneously she started having fevers, chills, and body aches. She has been also having abdominal cramps and an intermittent headache. She does complain of a cough, but it is nonproductive. She says that she only has a mild rhinorrhea and denies any sore throat, earache, or shortness of breath. Patient has been with some improvement overall. Diarrhea is improved. Breathing ok sats good. Sitting up in chair this am did well. Had blood cx pos and waiting on identification/sens ? contamination. Physical Exam Vital Signs / I&Os Vital Signs Date Time Temp Pulse Resp B/P Pulse O2 O2 Flow FiO2 Ox Delivery Rate 03/26 1012 98.8 65 21 116/50 97 Room Air 03/26 0925 Room Air 03/26 0701 98.8 68 20 143/60 99 Room Air 03/26 0248 98.4 69 16 111/55 96 Nasal Cannula 03/25 2353 97.9 62 20 122/49 97 Nasal Cannula 03/25 2000 Room Air 03/25 1841 99.0 66 20 118/48 95 03/25 1442 98.4 72 20 104/45 97 I&O 03/26 0000 03/25 1600 03/25 0800 Intake Total 2261 1383 Output Total 615 1000 1275 Balance 1646 -1000 108 General Appearance Alert, Cooperative HEENT Normal exam Lungs Clear to auscultation, Normal air movement Cardiovascular Regular rate and rhythm Abdomen Soft, No tenderness Extremities +1 edema bilaterally LAB Results Laboratory Tests 03/26 03/26 0435 0435 Chemistry Plasma Sodium (136 - 145 mmol/L) 138 Plasma Potassium (3.5 - 5.1 mmol/L) 4.1 Plasma Chloride (98 - 107 mmol/L) 105 CO2 (Enzymatic) (21 - 32 mmol/L) 25 BUN (7 - 18 mg/dL) 29 Creatinine (0.6 - 1.3 mg/dL) 1.3 Est GFR ( Amer) (mL/min) 52.32 Est GFR (Non-Af Amer) (mL/min) 43.17 Glucose (70 - 110 mg/dL) 156 Plasma Calcium (8.5 - 10.1 mg/dL) 7.3 Lactate Dehydrogenase (117 - 222 U/L) 175 Coagulation INR (0.8 - 1.2) 0.9 APTT (24 - 34 SECONDS) 31 Fibrinogen (193 - 455 mg/dL) 434 D-Dimer, Quantitative (0.27 - 0.52 ug/mLFEU) 1.12 Hematology WBC (4.5 - 11.5 K/uL) Pending 3.2 RBC (4.00 - 5.20 M/uL) Pending 4.01 Hgb (12.0 - 16.0 gm/dL) 11.4 Hct (36.0 - 46.0 %) 34.2 MCV (80 - 100 fL) 85 MCH (26 - 34 pg) 29 RDW (11.6 - 14.8 %) 12.8 Plt Count Pending Neut % (Auto) (50 - 75 %) 44.1 Lymph % (Auto) (25 - 40 %) 37.8 [place] % (Auto) (3 - 14 %) 11.9 Eos % (Auto) (0 - 4 %) 5.6 Baso % (Auto) (0 - 2 %) 0.6 Blood Smear Review Pending Plt Count, EDTA (150 - 400 K/uL) 48 PUBS MCHC (31 - 37 g/dL) 34 Smear Review By Pending Serology Hepatitis C Antibody Pending HIV 1&2 Antibody Screen (NEGATIVE) NEGATIVE HIV P24 Ag, Qual (NEGATIVE) NEGATIVE Microbiology Date/Time Procedure - Status Source Growth 03/25 1929 Urine Culture - RES URINE CC Assessment and Plan Problem List 1. Influenza A Plan Is improved normal sats 2. Hypoxia Plan Now on room air. 3. Diarrhea Plan Better. No more diarrhea 4. Dehydration Plan improved 5. Bacteremia Plan Coag neg staff in 2 bottles 1 sat and 2nd set totally neg x 48hrs and looks like contamination. 6. Thrombocytopenia Plan Has low blood counts 7. Diabetes mellitus type 2 in obese Plan stable.
--- NOTE | 2016-03-26 11:00 | Provider's Discharge Care Plan ---
Problem, Goal, Plan Problem List 1. Bacteremia Instructions: appears to have been contamination 2. Hypoxia Instructions: Follow up as directed, improved 3. Influenza A Instructions: Is improved 4. Diarrhea Instructions: Follow up as directed, Take meds as directed, Improved
--- NOTE | 2016-03-27 00:56 | DISCHARGE SUMMARY ---
ADMIT DATE: 03/24/2016 DISCHARGE DATE: 03/26/2016 ADMITTING DIAGNOSES: 1. Influenza. 2. Possible urinary tract infection. 3. Nausea and vomiting. 4. Weakness. 5. Dehydration. 6. Diabetes type 2. 7. Pseudobulbar affect. 8. Hypertension. DISCHARGE DIAGNOSES: 1. Influenza. 2. Possible urinary tract infection. 3. Nausea and vomiting. 4. Weakness. 5. Dehydration. 6. Diabetes type 2. 7. Pseudobulbar affect. 8. Hypertension. BRIEF HISTORY: Please refer to admit dictation for details. HOSPITAL COURSE: This is a 71-year-old female who presented to the emergency department with flu symptoms with a chronic history of diabetes, hypertension, pseudobulbar affect. She was admitted to the hospital, treated with IV fluids and also her home medications, as well as insulin. She is with a history of DVTs and she has been treated with Xarelto. She had a hospital course that was notable for continued issues of diarrhea. She was C. difficile negative. She was found to have a blood culture that came back positive x2. It was gram-positive cocci in the first set. The second set, however, at 48 hours remained negative. Both of the first set with the gram-positive cocci were coag-negative staph consistent with contamination. The patient was appearing well. She was feeling better. She no longer had any diarrhea. She was not having any fevers. At time of discharge, her vital signs, temperature was 98.8, heart rate of 65, respirations 21, blood pressure 116/50 and saturating 97% on room air. She was feeling better and no concerns for nursing. Her lungs were clear. Her heart was regular rate and rhythm. Abdomen was soft and nontender. Extremities had trace 1+ edema. The patient was discharged to home. DISCHARGE INSTRUCTIONS/MEDICATIONS: Her discharge medications included clonazepam, 1 p.o. t.i.d., docusate 250 mg p.o. daily, loperamide 2 mg after each loose stool p.r.n. diarrhea, lisinopril 40 mg p.o. daily, multivitamin 1 p.o. daily, trazodone 50 mg p.o. daily, Xalatan drops 1 drop at bedtime to her eyes, glargine 90 units daily, sertraline 50 mg p.o. daily, ranitidine 150 p.o. b.i.d., atorvastatin 80 mg p.o. daily, risperidone 1 mg p.o. b.i.d., hydrochlorothiazide 25 mg p.o. daily, albuterol sulfate dosed 2 puffs q.4 hours p.r.n., Xarelto 20 mg p.o. daily, insulin 15 units with meals daily, Nuedexta 1 p.o. b.i.d. The patient is to follow up with her primary doctor in 1-2 weeks.
== END 2016-03-26 14:10 | disposition home or self-care (01) | DRG 194 ==
LOC: ED SRH 19:03 → TRANS SRH 03-24 13:05 → CC SRH 03-24 15:05
PROVIDERS: ADMIT Family Medicine
DX: J10.1 Influenza due to other identified influenza virus with other respiratory manifestations (principal); R09.02 Hypoxemia; J10.2 Influenza due to other identified influenza virus with gastrointestinal manifestations; N39.0 Urinary tract infection, site not specified; N17.9 Acute kidney failure, unspecified; I82.531 Chronic embolism and thrombosis of right popliteal vein; E86.0 Dehydration; I10 Essential (primary) hypertension; F48.2 Pseudobulbar affect; E11.40 Type 2 diabetes mellitus with diabetic neuropathy, unspecified; D69.6 Thrombocytopenia, unspecified; Z79.01 Long term (current) use of anticoagulants
CPT/HCPCS: 85241; 85244; 90004; 90047; 90065; 90074; 90098; 90100; 90112; 90301; 90364; 90469; 91400; 91556; 91672; 92031; 92132; 92235; 92530; 92680; 92863; 93004; 94001; 94050; 94060; 95059; 95067; 99777

== ENCOUNTER 2016-05-26 11:28 | Emergency (ER) | payer OTHER ==
[~2016-05-26 11:28] MED LIST changes: +ACID REDUCER150 MG PO; +HYDROCHLOROTHIA25 MG PO; +LANTUS SOL100 UNITS/; +NOVOLOG PE100 UNITS/ SC; +NUEDEXTA1 CAP PO; +RISPERDAL1 MG PO; +SERTRALINE HCL50 MG PO; +VENTOLIN HFA IN; +XARELTO10 MG PO
--- NOTE | 2016-05-26 13:09 | DIAGNOSTIC IMAGING REPORT ---
PROCEDURE: XR CHEST 1 VIEW INDICATION: CHEST PAIN TECHNIQUE: Portable AP view 12:06 p.m. COMPARISON: Chest 03/23/2016 and 09/02/2014 FINDINGS: Lungs are clear. Heart and mediastinum are normal. Thorax is normal. IMPRESSION: 1. Negative chest.
--- NOTE | 2016-05-26 18:47 | ED ORDER SUMMARY ---
..... Patient: GISSELLE WILSON OrderSheet [facility] VisitID: [id number] [address] [place] [address] 71y, F Registration Date/Time: 05/26/2016 ORDER SHEET Weight: 90.7 kg (stated) Allergies: morphine, Penicillin, Sulfa Antibiotics GENERAL ORDERS: Old Records (EKG) (11:45 05/26/2016 Viviane CRUZ) (11:52 RKaruga) Assistant Attorney General (Continuous) (11:05/26/2016 Viviane CRUZ) (12:00 LWhalen R.N.) Chest 1V Urgent (11:55 05/26/2016 Viviane CRUZ) (Ack 11:57 LTapper) (12:00 LWhalen R.N.) UA-Culture if indicated Urgent (11:05/26/2016 Viviane CRUZ) (Ack 11:57 LTapper) (12:00 LWhalen R.N.) Cardiac Panel Stat (11:05/26/2016 Viviane CRUZ) (Ack 11:57 LTapper) (12:00 LWhalen R.N.) BNP Urgent (11:55 05/26/2016 Viviane CRUZ) (Ack 11:57 LTapper) (12:00 LWhalen R.N.) TSH Urgent (11:05/26/2016 Viviane CRUZ) (Ack 11:57 LTapper) (12:00 LWhalen R.N.) Oxygen (2 L/min) (NC) (11:05/26/2016 Viviane CRUZ) (12:00 LWhalen R.N.) Pulse oximeter (11:05/26/2016 Viviane CRUZ) (12:00 LWhalen R.N.) EKG - ER Stat (11:05/26/2016 Viviane CRUZ) (Ack 11:57 LTapper) (12:00 LWhalen R.N.) Blood Culture (No) (N/A) Urgent (12:06 05/26/2016 Viviane CRUZ) (Ack 12:18 LTapper) (13:58 LWhalen R.N.) Lactate, Serum Urgent (12:06 05/26/2016 Viviane CRUZ) (Ack 12:18 LTapper) (13:58 LWhalen R.N.) PCT (Procalcitonin) Urgent (12:06 05/26/2016 Viviane CRUZ) (Ack 12:18 LTapper) (13:58 LWhalen R.N.) CRP Urgent (12:06 05/26/2016 Viviane CRUZ) (Ack 12:18 LTapper) (13:58 LWhalen R.N.) - (Bolus 500 cc NS then 250 cc per hour.) (13:29 05/26/2016 Viviane CRUZ) (Ack 13:31 LTapper) (13:58 LWhalen R.N.) MEDICATION ORDERS: IV FLUIDS: IV Saline Lock (11:55 05/26/2016 Viviane CRUZ) (12:00 LWhalen R.N.) Insulin Reg IV 8 units (NOW) (13:30 05/26/2016 Viviane CRUZ) (14:02 LWhalen R.N.) Rocephin IV 2 gm/50mL (NOW) (13:31 05/26/2016 Viviane CRUZ) (14:00 LWhalen R.N.) Insulin Reg IV 5 units (NOW) (15:34 05/26/2016 Viviane CRUZ) (15:49 LWhalen R.N.) ORDER SHEET NOTES: [Electronically signed by Chano Calderón R.N. (19:18 05/27/2016)] [Electronically signed by Ethan Hsu MD (20:53 05/27/2016)] [Electronically locked/signed by Chano Calderón R.N. (19:18 05/27/2016)]
--- NOTE | 2016-05-26 18:47 | ED CLINICAL REPORT ---
Clinical Report - Physicians/Mid Levels [facility] [address] [place] [address] 05/26/2016 11:30 Patient: GISSELLE WILSON Time Seen: 11:48 May 26 2016. Arrived- By ambulance. Historian- patient and EMS personnel. CPT: ER phys charges level 5 plus (#[id number]). EKG interpretation (#[id number]). HISTORY OF PRESENT ILLNESS Chief Complaint: DIZZINESS and WEAKNESS. ( Acute weakness while at breakfast this morning. [place] fine yesterday and when she got up this morning.Was sitting at the table when she felt acute vertigo and pre-syncope. 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 She still feels weak. She had CP on the way to the ER associated with dyspnea and nausea. Those symptoms have resolved also.). (weakness). Severity described as moderate at its maximum. When seen in the E.D., severity described as moderate. Modifying factors- worsened by turning head and standing up. Relieved by rest and nothing. Described as a sense of rotation and feeling off balance, light-headed, faint and weak all over. This started just prior to arrival and is still present. The patient has had nausea. (Chest pain developed in route to ER. Resolved now. Blood sugars have been in the 400's recently.). Similar symptoms previously: None. Recent medical care: Not recently seen/assessed. REVIEW OF SYSTEMS No headache, double vision, fainting episodes, head injury or palpitations. No black stools, bloody stools, fever or sore throat or throat. No cough, abdominal pain, diarrhea, difficulty with urination or skin rash. No enlarged lymph nodes, chills or joint pain. The patient has had weakness,, weakness, and diabetic symptoms. She has had difficulty walking. She has had moderate central chest pain (Transient and resolved now.). She has had difficulty breathing (tansient and resolved now.). She has had difficulty walking. No prior hx of vertigo. All systems otherwise negative, except as recorded above. PAST HISTORY ( Diabetes mellitus. Hypertension. Hypoxia. Influenza. Hypoglycemia. MRSA Infection. Dyspnea. UTI - Urinary Tract Infection. DVT - Deep Venous Thrombosis. Renal Insufficiency. Bronchitis. Blindness. Wound Infection. TIA - Transient Ischemic Attack. Concussion. Abrasion(s). Fall. Colon Cancer. Tetanus Status. Vomiting. Abdominal Pain. Immunizations. LNMP - Last Normal Menstrual Period. Myofascial Strain. Contusion. Anxiety Reaction. Arthritis. Back Pain. Coronary Artery Disease. Cataracts. CVA - Cerebrovascular Accident. Depression. Diabetes Mellitus. Hyperlipidemia. Peripheral Vascular Disease. Gastroesophageal Reflux Disease. --11:39 Chano Calderón R.N. ADDITIONAL SURGERIES: Abdominal Aortic Aneurysm Repair. Appendectomy. Colostomy. Colostomy takedown . Tonsillectomy.). Medications: Atorvastatin 80mg x1 tab daily. Combigan Ophthalmic. Hydrochlorothiazide Oral 25 mg, daily. Lantanoprost Patricia 0.005% . Lantus Subcutaneous 85 units, every AM. Lisinopril Oral 40 mg, daily. Methazolamide Oral (Tablet 25 mg) 1 tablet, x2 daily. Paroxetine 40mg x2 tabs daily. Pramipexole 0.25mg x1 tab at bedtime. Ranitidine HCl Oral 150 mg, 2x a day. RisperiDONE Oral (Tablet Dispersible 0.5 mg) 1 tablet, 2x a day. Timolol Mal Patricia 0.5% OP - 1 gtt x2 daily. TraZODone HCl Oral 50 mg, 1 1/2 tab, at bedtime. Xarelto Oral (Tablet 15 mg) 1 tablet, daily. Allergies: morphine. Penicillin. Sulfa Antibiotics. SOCIAL HISTORY History of drug use: marijuana. No alcohol use. Lives in own home with care takers. Dr Retana PCP. ADDITIONAL NOTES The nursing notes have been reviewed. PHYSICAL EXAM Vital Signs: 05/26/2016 11:36 BP: 141/79. HR: 58. RR: 20. O2 saturation: 98%. Temp: 98.4 F. Appearance: Alert. No acute distress. Eyes: Pupils equal, round and reactive to light. No nystagmus. Extraocular movements normal. ENT: Normal ENT inspection. TM's normal. Moist mucous membranes. Pharynx normal. Neck: Normal inspection. Neck supple. CVS: Normal heart rate and rhythm. Heart sounds normal. Pulses normal. Respiratory: No respiratory distress. Breath sounds normal. Abdomen: Soft and nontender. Back: Normal inspection. Skin: Skin warm. Normal skin color. No rash. Extremities: Extremities exhibit normal ROM. No calf tenderness. No lower extremity edema. Neuro: Alert. Oriented X 3. Mood/affect normal. Speech normal. Cranial nerves normal (as tested). No cerebellar findings. No motor deficit. No sensory deficit. Reflexes normal. (Decreased vision(Chronic)). LABS, X-RAYS, AND EKG EKG: Normal sinus rhythm. Normal P waves. Normal OSWALDO. Normal QRS complex. Q waves in lead V1 and V2 (vs low voltage.). Normal axis. Normal ST and T waves. The study has been interpreted contemporaneously. The study has been independently viewed by me. The EKG appears to be a good tracing. Laboratory Tests: UA-Culture if indicated: (NEREIDA: 05/26/2016 11:35) ( MsgRcvd 05/26/2016 12:20) Final results Test Result Flag Units (Reference) URINE COLOR YELLOW URINE APPEARANCE CLOUDY URINE GLUCOSE 3+ (NEGATIVE) URINE BILIRUBIN NEGATIVE (NEGATIVE) URINE KETONE NEGATIVE (NEGATIVE) URINE SPECIFIC GRAVITY 1.015 (1.010-1.030) URINE PH 5.5 (5.0-8.0) URINE PROTEIN NEGATIVE (NEGATIVE) URINE UROBILINOGEN 0.2 EU/dL (0.2-1.0) URINE NITRITE NEGATIVE (NEGATIVE) URINE BLOOD TRACE-INTACT (NEGATIVE) URINE LEUK ESTERASE NEGATIVE (NEGATIVE) URINE RBC RARE rbc/hpf (0-1) URINE WBC 10-15 wbc/hpf (0-1) URINE EPITHELIAL CELLS 3-5 EPI/hpf (0-5) URINE BACTERIA MANY (4+) (NONE SEEN) URINE COMMENT CULTURE INDICATED URINE CULTURES ARE SET-UP BASED ON THE FOLLOWING CRITERIA:POSITIVE NITRITEPOSITIVE LEUKOCYTE ESTERASEGREATER THAN 10 WHITE BLOOD CELLSMODERATE (2+) OR GREATER BACTERIA CBC w Diff: (NEREIDA: 05/26/2016 11:45) ( MsgRcvd 05/26/2016 12:02) Final results Test Result Flag Units (Reference) WHITE BLOOD COUNT 7.1 K/uL (4.5-11.5) RED BLOOD COUNT 4.52 M/uL (4.00-5.20) HEMOGLOBIN 12.8 gm/dL (12.0-16.0) HEMATOCRIT 37.8 % (36.0-46.0) MEAN CELL VOLUME 84 fL (80-100) MEAN CORPUSCULAR HGB 28 pg (26-34) MEAN CORPUSCULAR HGB CONC 34 g/dL (31-37) RED CELL DISTRIBUTION WIDTH 13.0 % (11.6-14.8) PLATELET COUNT 95 L K/uL (150-400) NEUTROPHIL % 66.2 % (50-75) LYMPH % 20.8 L % (25-40) MONO % 7.9 % (3-14) EOSINOPHIL % 4.6 H % (0-4) BASOPHIL % 0.5 % (0-2) [id number]: (NEREIDA: 05/26/2016 11:45) ( [facility] 05/26/2016 12:58) Final results Test Result Flag Units (Reference) C-REACTIVE PROTEIN 0.8 mg/dL (0.0-0.9) Lactate, Serum: (NEREIDA: 05/26/2016 13:00) ( [facility] 05/26/2016 13:58) Final results Test Result Flag Units (Reference) LACTIC ACID 0.8 mmol/L (0.4-2.0) [id number]: (NEREIDA: 05/26/2016 11:45) ( [facility] 05/26/2016 13:00) Final results Test Result Flag Units (Reference) PROCALCITONIN <0.5 ng/mL (0-0.5) PCT Concentration: Interpretation : Risk/option for action PCT <=0.5 ng/mL : Systemic : Low risk forinfection(sepsis): progression to severeis not likely. : systemic infection.Local bacterial : CAUTION-PCT levelsinfection is : below 0.5 ng/mL do notpossible. : exclude an infection,because localizedinfections (withoutsystemic signs) may beassociated with suchlow levels. If PCT ismeasured very earlyafter a bacterialchallenge (usually <6hours), these valuesmay still be low. Inthis case PCT shouldbe re-assessed 6-24hours later. PCT >0.5 and : Systemic infection: Moderate risk for<= 2 ng/mL : (sepsis) is : progression to severepossible, but : systemic infection.other conditions : The patient should beare known to : closely monitoredelevate PCT. : both clinically andby re-assessing PCTwithin 6-24 hours. PCT > 2 ng/mL : Systemic infection: High risk for(sepsis) is likely: progression to severeunless other : systemic infection.causes are known. : PCT >= 10 ng/mL : Important systemic: High likelihood ofinflammatory : severe sepsis orresponse, almost : septic shock.exclusively due to:severe bacterial :sepsis or septic :shock. : BNP: (NEREIDA: 05/26/2016 11:45) ( MdgRcvd 05/26/2016 12:23) Final results Test Result Flag Units (Reference) B-TYPE NATRIURETIC PEPTIDE 13.5 pg/ml (5-100) CHEM 13 PANEL: (NEREIDA: 05/26/2016 11:45) ( MsgRcvd 05/26/2016 12:23) Final results Test Result Flag Units (Reference) GLUCOSE 421 H mg/dL (70-110) BUN 30 H mg/dL (7-18) CREATININE 1.9 H mg/dL (0.6-1.3) Estimated GFR 27.86 mL/min Estimated GFR- 33.76 mL/min Note: Persistent reduction over 3 months in eGFR<60 mL/min/1.73 m2 defines CKD. Patients with eGFR values>=60 mL/min/1.73 m2 may also have CKD if evidence ofpersistent proteinuria. Additional information may be foundat [email or web address].org. SODIUM 134 L mmol/L (136-145) POTASSIUM 5.3 H mmol/L (3.5-5.1) CHLORIDE 98 mmol/L (98-107) CARBON DIOXIDE 32 mmol/L (21-32) CALCIUM 8.5 mg/dL (8.5-10.1) TOTAL PROTEIN 7.0 g/dL (6.4-8.2) ALBUMIN 3.2 L g/dL (3.3-5.0) BILIRUBIN, TOTAL 0.4 mg/dL (0.0-1.0) ALKALINE PHOSPHATASE 83 U/L (46-116) AST (SGOT) 12 L U/L (15-37) ALT (SGPT) 20 U/L (12-78) CPK 67 U/L (24-260) MAGNESIUM 1.6 L mg/dL (1.8-2.4) TROPONIN I <0.05 ng/mL (0.00-1.5) TROPONIN REFERENCE RANGE:<0.1 NEGATIVE0.1-1.5 INDETERMINANT>1.5 POSITIVE THYROID STIMULATING HORMONE 1.755 uIU/mL (0.30-3.74) . PROGRESS AND PROCEDURES Course of Care: Pt stable at this time with mild weakness as only symptom in the ER. Heplock Pt on xaralto Rocephin 2g IV Insulin 7units IV then 5 units IV for high blood sugar. 18:46 05/26/16. Dr Nugent has seen the patient in the ER and is OK with sending the patient home as long as she has enough family to be there to keep her safe as she is a high fall risk due to vertigo. Discussed with her daughter and she will stay with her Mother as long as needed for safety. Patient/family counseled. Old medical records ordered. Disposition: Discharged. Condition: unchanged. CLINICAL IMPRESSION Benign positional vertigo- acute, right ear. Chronic, poorly controlled type 1 diabetes with hyperglycemia. No coma. Acute urinary tract infection with cystitis. Acute generalized weakness. Dehydration. INSTRUCTIONS Warnings: Further evaluation is necessary. GENERAL WARNINGS: Return or contact your physician immediately if your condition worsens or changes unexpectedly, if not improving as expected, or if other problems arise. Your Current Medications: CONTINUE TAKING THE FOLLOWING MEDICATIONS: Atorvastatin 80mg x1 tab daily*. Combigan Ophthalmic. Hydrochlorothiazide Oral : 25 mg daily. Lantanoprost Patricia 0.005% *. Lantus Subcutaneous : 85 units every AM. Lisinopril Oral : 40 mg daily. Methazolamide Oral : Tablet 25 mg, 1 tablet x2 daily. Paroxetine 40mg x2 tabs daily*. Pramipexole 0.25mg x1 tab at bedtime*. Ranitidine HCl Oral : 150 mg 2x a day. RisperiDONE Oral : Tablet Dispersible 0.5 mg, 1 tablet 2x a day. Timolol Mal Patricia 0.5% OP - 1 gtt x2 daily*. TraZODone HCl Oral : 50 mg, 1 1/2 tab at bedtime. Xarelto Oral : Tablet 15 mg, 1 tablet daily. Prescription Medications: Macrobid 100 mg: Take 1 capsule orally every 12 hours for 7 days. No refills. Substitution is permissible. Scopolamine patch behind ear q 72 hours prn vertigo. # 6. Understanding of the discharge instructions verbalized by patient and family. Follow-up with: Shravan Retana MD, Family Practice, , [facility], [address] [place] [address] Follow up in one week. Call for an appointment. (Electronically signed by Ethan Hsu MD 05/27/2016 20:53)
--- NOTE | 2016-05-26 18:47 | ED NURSING NOTES ---
Clinical Report - Nurses [facility] [address] [place] [address] 05/26/2016 11:30 [id number] Triage time 11:30 May 26 2016. Acuity: LEVEL 3. Chief Complaint: FATIGUE, WEAKNESS and CHEST PAIN. DAGMAR COMA SCORE: Dagmar Coma Scale: 15- eyes open spontaneously (4); best verbal response- oriented x 4 (5); best motor response- obeys commands (6). --11:42 Chano Calderón R.N. 11:36 05/26/16. BP: 141/79. HR: 58. RR: 20. O2 saturation: 98%. Temp: 98.4 F. Pain level now 0/10. --11:42 Chano Calderón R.N. Weight: 90.7 kg stated. Height/Length: 66 inches Per Patient. BMI: 32.3. --11:39 Chano Calderón R.N. Medications Atorvastatin 80mg x1 tab daily. Combigan Ophthalmic. Hydrochlorothiazide Oral 25 mg, daily. Lantanoprost Patricia 0.005% . Lantus Subcutaneous 85 units, every AM. Lisinopril Oral 40 mg, daily. Methazolamide Oral (Tablet 25 mg) 1 tablet, x2 daily. Paroxetine 40mg x2 tabs daily. Pramipexole 0.25mg x1 tab at bedtime. Ranitidine HCl Oral 150 mg, 2x a day. RisperiDONE Oral (Tablet Dispersible 0.5 mg) 1 tablet, 2x a day. Timolol Mal Patricia 0.5% OP - 1 gtt x2 daily. TraZODone HCl Oral 50 mg, 1 1/2 tab, at bedtime. Xarelto Oral (Tablet 15 mg) 1 tablet, daily. --11:38 Chano Calderón R.N. Allergies morphine. Penicillin. Sulfa Antibiotics. --11:38 Chano Calderón R.N. History Arrived by EMS, and from home. Historian: patient. Primary physician (). This started just prior to arrival. ( After BF started feeling weak and tired couldn't stand up and almost fell attempting to ambulate.). She has had weakness. No fever, cough, difficulty breathing or skin rash. Denies muscle aches. 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 PAST MEDICAL HX: Diabetes mellitus. Hypertension. SOCIAL HX: Smoker- current status unknown. History of weekly drug use: marijuana. No alcohol use. SKIN INTEGRITY ASSESSMENT: Skin integrity risk assessment was performed. Risk factors identified include sensory deficit present (On Belly). SELF HARM ASSESSMENT: A self harm assessment was performed. The patient answered "no" to the question "Have you recently felt down, depressed, or hopeless?" and "Do you have thoughts of harming or killing yourself?". FALL RISK ASSESSMENT: Fall risk assessment completed. No fall risk identified. NUTRITIONAL RISK ASSESSMENT: The nutritional risk assessment revealed no deficiencies. FUNCTIONAL ASSESSMENT: Functional assessment: no impairments noted. LEARNING NEEDS ASSESSMENT: The learning needs assessment revealed no barriers. ABUSE ASSESSMENT: Abuse assessment: (yes) The patient was asked "Do you feel safe in your home?". --11:42 Chano Calderón R.N. PROBLEMS: Hypoxia. Influenza. Hypoglycemia. MRSA Infection. Dyspnea. UTI - Urinary Tract Infection. DVT - Deep Venous Thrombosis. Renal Insufficiency. Bronchitis. Blindness. Wound Infection. TIA - Transient Ischemic Attack. Concussion. Abrasion(s). Fall. Colon Cancer. Tetanus Status. Vomiting. Abdominal Pain. Immunizations. LNMP - Last Normal Menstrual Period. Myofascial Strain. Contusion. Anxiety Reaction. Arthritis. Back Pain. Coronary Artery Disease. Cataracts. CVA - Cerebrovascular Accident. Depression. Diabetes Mellitus. Hyperlipidemia. Peripheral Vascular Disease. Gastroesophageal Reflux Disease. --11:39 Chano Calderón R.N. ADDITIONAL SURGERIES: Abdominal Aortic Aneurysm Repair. Appendectomy. Colostomy. Colostomy takedown . Tonsillectomy. --11:39 Chano Calderón R.N. Interventions ID and allergy band on patient. --11:42 Chano Calderón R.N. PHYSICAL ASSESSMENT To room via stretcher. GENERAL / NEURO / PSYCH: Alert. Oriented X 4. Appears anxious. HEENT: Pupils equal, round and reactive to light. No facial asymmetry noted. Mucous membranes are pink. RESPIRATORY: Respirations not labored. Breath sounds within normal limits. CVS: Normal sinus rhythm noted. Capillary refill less than 2 seconds. Pulses within normal limits. GI / : ( Last BM yesterday). Abdomen soft and nontender. SKIN: Skin is warm and dry. ( Wound on belly colostomy take down infection.). --11:46 Chano Calderón R.N. NURSING PROGRESS NOTES The initial plan of care for this patient includes an assessment with efforts to address the patient's anxiety; patient positioning, appropriate ambient lighting and comfortable environmental temperature. monitoring specialist, pulse oximeter and NIBP monitor placed on patient. Patient gowned. Head of bed elevated (90). Reassurance given. Call light placed in reach. Side rails up x 2. Bed placed in lowest position. Brakes of bed on. --11:46 Chano Calderón R.N. 11:37 05/26/2016 Site #1 started via IV in the right antecubital space with an 20g angiocath, with aseptic technique and good blood return; one attempt. Blood drawn: rainbow set. Labeled in the presence of the patient and sent to the lab. Saline lock flushed with 10 mL saline. --11:47 Chano Calderón R.N. Finger stick glucose: 407. --11:47 Chano Calderón R.N. EKG time: (11:36). EKG was performed by a tech and shown to the ED physician. --11:49 Breanna Sullivan 13:55 05/26/2016 Started 2 gm of Rocephin (CefTRIAXone Sodium) IVPB in bag #1 50 mL; at 150 mL/hr over 1 hour(s) via site #1 via IV pump. Allergies verified and confirmed 5 rights. IV patency established. IV site checked: no pain, redness, or swelling. IV flushed thoroughly pre- and post-medication administration. --14:00 Chano Calderón R.N. 13:57 05/26/2016 Insulin REG IVP 8 unit given over 1 minute(s) via site #1. Allergies verified and confirmed 5 rights. IV patency established. IV site checked: no pain, redness, or swelling. IV flushed thoroughly pre- and post-medication administration. --14:02 Chano Calderón R.N. Finger stick glucose: 290 mg/dL; performed by [employer]; result shown to the ED physician and RN. --15:33 Breanna Sullivan ( Brought patient half a turkey sandwich with cheese and water after blood glucose level was checked. Dr banda meal with RN administering extra dose of insulin.). --15:46 Breanna Sullivan 15:49 05/26/2016 Insulin REG IVP 5 unit given over 1 minute(s) via site #1. Allergies verified and confirmed 5 rights. IV patency established. IV site checked: no pain, redness, or swelling. IV flushed thoroughly pre- and post-medication administration. --15:49 Chano Calderón R.N. 14:30 05/26/16. BP: 129/81. HR: 67. RR: 18. O2 saturation: 98% on nasal cannula at 1 liters/minute. 13:30 05/26/16. BP: 134/45. HR: 59. RR: 25. O2 saturation: 95% on nasal cannula at 2 liters/minute. 12:30 05/26/16. BP: 140/48. HR: 59. RR: 18. O2 saturation: 99% on nasal cannula at 2 liters/minute. 12:00 05/26/16. BP: 165/68. HR: 58. RR: 23. O2 saturation: 94% on nasal cannula at 2 liters/minute. 11:45 05/26/16. BP: 143/72. HR: 59. RR: 20. O2 saturation: 96% on nasal cannula at 2 liters/minute. Temp: 98.4 F. Pain level now: 0/10. --16:01 Chano Calderón R.N. ( Patient very tearful asked patient what was wrong and she just started crying asking if she is a bad person? I said I don't believe so and I asked why. She states she has been treated so badly here at her stay. I continued to ask for examples the half of sandwich was her only complaint. I asked her how I could make her feel better if she needed anything she stated no. I have even previously asked the patient if she wanted me to help her braid her hair since she didn't get to finish it at home. I explained and apologized for the uncomfortable stretcher and the sandwich and reported to MD.). --16:09 Chano Calderón R.N. ( At Pt's bedside for a walking test with the RN ervin ROLDAN). --16:28 Breanna Sullivan 16:31 05/26/16. BP: 151/54. HR: 68. RR: 18. O2 saturation: 96%. Pain level now 0/10. --16:31 Chano Calderón R.N. Finger stick glucose: 232 mg/dL; performed by [employer]; result shown to the ED physician. --18:21 Breanna Sullivan. DISPOSITION / DISCHARGE 18:52 05/26/2016 Site #1 removed upon discharge. Catheter intact. Pressure dressing applied. --19:02 Chano Calderón R.N. Departure time: 19:03 May 26 2016. Condition at departure: improved. No learning barriers present. Discharge instructions provided and reviewed with the patient and family. Reviewed warnings. Reviewed medication(s). Treatments reviewed. Reviewed referrals. Patient and family verbalized understanding. Written instructions provided in Mexican. The patient was discharged home and accompanied by family. She left the Emergency Department in a wheelchair and via private vehicle. Family member driving. --19:03 Chano Caldeórn R.N. 19:02 05/26/16. BP: 166/64. HR: 62. RR: 18. O2 saturation: 96%. Temp: 98.4 F. Pain level now 0/10. --19:03 Chano Calderón R.N. Locked/Released at 05/27/2016 19:18 by Chano Calderón R.N.
--- NOTE | 2016-05-26 18:47 | ED CLINICAL REPORT ---
Clinical Report - Physicians/Mid Levels [facility] [address] [place] [address] 05/26/2016 11:30 Patient: GISSELLE WILSON Time Seen: 11:48 May 26 2016. Arrived- By ambulance. Historian- patient and EMS personnel. CPT: ER phys charges level 5 plus (#[id number]). EKG interpretation (#[id number]). HISTORY OF PRESENT ILLNESS Chief Complaint: DIZZINESS and WEAKNESS. ( Acute weakness while at breakfast this morning. Widen fine yesterday and when she got up this morning.Was sitting at the table when she felt acute vertigo and pre-syncope. 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 She still feels weak. She had CP on the way to the ER associated with dyspnea and nausea. Those symptoms have resolved also.). (weakness). Severity described as moderate at its maximum. When seen in the E.D., severity described as moderate. Modifying factors- worsened by turning head and standing up. Relieved by rest and nothing. Described as a sense of rotation and feeling off balance, light-headed, faint and weak all over. This started just prior to arrival and is still present. The patient has had nausea. (Chest pain developed in route to ER. Resolved now. Blood sugars have been in the 400's recently.). Similar symptoms previously: None. Recent medical care: Not recently seen/assessed. REVIEW OF SYSTEMS No headache, double vision, fainting episodes, head injury or palpitations. No black stools, bloody stools, fever or sore throat or throat. No cough, abdominal pain, diarrhea, difficulty with urination or skin rash. No enlarged lymph nodes, chills or joint pain. The patient has had weakness,, weakness, and diabetic symptoms. She has had difficulty walking. She has had moderate central chest pain (Transient and resolved now.). She has had difficulty breathing (tansient and resolved now.). She has had difficulty walking. No prior hx of vertigo. All systems otherwise negative, except as recorded above. PAST HISTORY ( Diabetes mellitus. Hypertension. Hypoxia. Influenza. Hypoglycemia. MRSA Infection. Dyspnea. UTI - Urinary Tract Infection. DVT - Deep Venous Thrombosis. Renal Insufficiency. Bronchitis. Blindness. Wound Infection. TIA - Transient Ischemic Attack. Concussion. Abrasion(s). Fall. Colon Cancer. Tetanus Status. Vomiting. Abdominal Pain. Immunizations. LNMP - Last Normal Menstrual Period. Myofascial Strain. Contusion. Anxiety Reaction. Arthritis. Back Pain. Coronary Artery Disease. Cataracts. CVA - Cerebrovascular Accident. Depression. Diabetes Mellitus. Hyperlipidemia. Peripheral Vascular Disease. Gastroesophageal Reflux Disease. --11:39 Chano Calderón R.N. ADDITIONAL SURGERIES: Abdominal Aortic Aneurysm Repair. Appendectomy. Colostomy. Colostomy takedown . Tonsillectomy.). Medications: Atorvastatin 80mg x1 tab daily. Combigan Ophthalmic. Hydrochlorothiazide Oral 25 mg, daily. Lantanoprost Patricia 0.005% . Lantus Subcutaneous 85 units, every AM. Lisinopril Oral 40 mg, daily. Methazolamide Oral (Tablet 25 mg) 1 tablet, x2 daily. Paroxetine 40mg x2 tabs daily. Pramipexole 0.25mg x1 tab at bedtime. Ranitidine HCl Oral 150 mg, 2x a day. RisperiDONE Oral (Tablet Dispersible 0.5 mg) 1 tablet, 2x a day. Timolol Mal Patricia 0.5% OP - 1 gtt x2 daily. TraZODone HCl Oral 50 mg, 1 1/2 tab, at bedtime. Xarelto Oral (Tablet 15 mg) 1 tablet, daily. Allergies: morphine. Penicillin. Sulfa Antibiotics. SOCIAL HISTORY History of drug use: marijuana. No alcohol use. Lives in own home with care takers. Dr Retana PCP. ADDITIONAL NOTES The nursing notes have been reviewed. PHYSICAL EXAM Vital Signs: 05/26/2016 11:36 BP: 141/79. HR: 58. RR: 20. O2 saturation: 98%. Temp: 98.4 F. Appearance: Alert. No acute distress. Eyes: Pupils equal, round and reactive to light. No nystagmus. Extraocular movements normal. ENT: Normal ENT inspection. TM's normal. Moist mucous membranes. Pharynx normal. Neck: Normal inspection. Neck supple. CVS: Normal heart rate and rhythm. Heart sounds normal. Pulses normal. Respiratory: No respiratory distress. Breath sounds normal. Abdomen: Soft and nontender. Back: Normal inspection. Skin: Skin warm. Normal skin color. No rash. Extremities: Extremities exhibit normal ROM. No calf tenderness. No lower extremity edema. Neuro: Alert. Oriented X 3. Mood/affect normal. Speech normal. Cranial nerves normal (as tested). No cerebellar findings. No motor deficit. No sensory deficit. Reflexes normal. (Decreased vision(Chronic)). LABS, X-RAYS, AND EKG EKG: Normal sinus rhythm. Normal P waves. Normal OSWALDO. Normal QRS complex. Q waves in lead V1 and V2 (vs low voltage.). Normal axis. Normal ST and T waves. The study has been interpreted contemporaneously. The study has been independently viewed by me. The EKG appears to be a good tracing. Laboratory Tests: UA-Culture if indicated: (NEREIDA: 05/26/2016 11:35) ( MsgRcvd 05/26/2016 12:20) Final results Test Result Flag Units (Reference) URINE COLOR YELLOW URINE APPEARANCE CLOUDY URINE GLUCOSE 3+ (NEGATIVE) URINE BILIRUBIN NEGATIVE (NEGATIVE) URINE KETONE NEGATIVE (NEGATIVE) URINE SPECIFIC GRAVITY 1.015 (1.010-1.030) URINE PH 5.5 (5.0-8.0) URINE PROTEIN NEGATIVE (NEGATIVE) URINE UROBILINOGEN 0.2 EU/dL (0.2-1.0) URINE NITRITE NEGATIVE (NEGATIVE) URINE BLOOD TRACE-INTACT (NEGATIVE) URINE LEUK ESTERASE NEGATIVE (NEGATIVE) URINE RBC RARE rbc/hpf (0-1) URINE WBC 10-15 wbc/hpf (0-1) URINE EPITHELIAL CELLS 3-5 EPI/hpf (0-5) URINE BACTERIA MANY (4+) (NONE SEEN) URINE COMMENT CULTURE INDICATED URINE CULTURES ARE SET-UP BASED ON THE FOLLOWING CRITERIA:POSITIVE NITRITEPOSITIVE LEUKOCYTE ESTERASEGREATER THAN 10 WHITE BLOOD CELLSMODERATE (2+) OR GREATER BACTERIA CBC w Diff: (NEREIDA: 05/26/2016 11:45) ( MsgRcvd 05/26/2016 12:02) Final results Test Result Flag Units (Reference) WHITE BLOOD COUNT 7.1 K/uL (4.5-11.5) RED BLOOD COUNT 4.52 M/uL (4.00-5.20) HEMOGLOBIN 12.8 gm/dL (12.0-16.0) HEMATOCRIT 37.8 % (36.0-46.0) MEAN CELL VOLUME 84 fL (80-100) MEAN CORPUSCULAR HGB 28 pg (26-34) MEAN CORPUSCULAR HGB CONC 34 g/dL (31-37) RED CELL DISTRIBUTION WIDTH 13.0 % (11.6-14.8) PLATELET COUNT 95 L K/uL (150-400) NEUTROPHIL % 66.2 % (50-75) LYMPH % 20.8 L % (25-40) MONO % 7.9 % (3-14) EOSINOPHIL % 4.6 H % (0-4) BASOPHIL % 0.5 % (0-2) [id number]: (NEREIDA: 05/26/2016 11:45) ( [facility] 05/26/2016 12:58) Final results Test Result Flag Units (Reference) C-REACTIVE PROTEIN 0.8 mg/dL (0.0-0.9) Lactate, Serum: (NEREIDA: 05/26/2016 13:00) ( [facility] 05/26/2016 13:58) Final results Test Result Flag Units (Reference) LACTIC ACID 0.8 mmol/L (0.4-2.0) [id number]: (NEREIDA: 05/26/2016 11:45) ( [facility] 05/26/2016 13:00) Final results Test Result Flag Units (Reference) PROCALCITONIN <0.5 ng/mL (0-0.5) PCT Concentration: Interpretation : Risk/option for action PCT <=0.5 ng/mL : Systemic : Low risk forinfection(sepsis): progression to severeis not likely. : systemic infection.Local bacterial : CAUTION-PCT levelsinfection is : below 0.5 ng/mL do notpossible. : exclude an infection,because localizedinfections (withoutsystemic signs) may beassociated with suchlow levels. If PCT ismeasured very earlyafter a bacterialchallenge (usually <6hours), these valuesmay still be low. Inthis case PCT shouldbe re-assessed 6-24hours later. PCT >0.5 and : Systemic infection: Moderate risk for<= 2 ng/mL : (sepsis) is : progression to severepossible, but : systemic infection.other conditions : The patient should beare known to : closely monitoredelevate PCT. : both clinically andby re-assessing PCTwithin 6-24 hours. PCT > 2 ng/mL : Systemic infection: High risk for(sepsis) is likely: progression to severeunless other : systemic infection.causes are known. : PCT >= 10 ng/mL : Important systemic: High likelihood ofinflammatory : severe sepsis orresponse, almost : septic shock.exclusively due to:severe bacterial :sepsis or septic :shock. : BNP: (NEREIDA: 05/26/2016 11:45) ( NdgRcvd 05/26/2016 12:23) Final results Test Result Flag Units (Reference) B-TYPE NATRIURETIC PEPTIDE 13.5 pg/ml (5-100) CHEM 13 PANEL: (NEREIDA: 05/26/2016 11:45) ( MsgRcvd 05/26/2016 12:23) Final results Test Result Flag Units (Reference) GLUCOSE 421 H mg/dL (70-110) BUN 30 H mg/dL (7-18) CREATININE 1.9 H mg/dL (0.6-1.3) Estimated GFR 27.86 mL/min Estimated GFR- 33.76 mL/min Note: Persistent reduction over 3 months in eGFR<60 mL/min/1.73 m2 defines CKD. Patients with eGFR values>=60 mL/min/1.73 m2 may also have CKD if evidence ofpersistent proteinuria. Additional information may be foundat www.kidney.org. SODIUM 134 L mmol/L (136-145) POTASSIUM 5.3 H mmol/L (3.5-5.1) CHLORIDE 98 mmol/L (98-107) CARBON DIOXIDE 32 mmol/L (21-32) CALCIUM 8.5 mg/dL (8.5-10.1) TOTAL PROTEIN 7.0 g/dL (6.4-8.2) ALBUMIN 3.2 L g/dL (3.3-5.0) BILIRUBIN, TOTAL 0.4 mg/dL (0.0-1.0) ALKALINE PHOSPHATASE 83 U/L (46-116) AST (SGOT) 12 L U/L (15-37) ALT (SGPT) 20 U/L (12-78) CPK 67 U/L (24-260) MAGNESIUM 1.6 L mg/dL (1.8-2.4) TROPONIN I <0.05 ng/mL (0.00-1.5) TROPONIN REFERENCE RANGE:<0.1 NEGATIVE0.1-1.5 INDETERMINANT>1.5 POSITIVE THYROID STIMULATING HORMONE 1.755 uIU/mL (0.30-3.74) . PROGRESS AND PROCEDURES Course of Care: Pt stable at this time with mild weakness as only symptom in the ER. Heplock Pt on xaralto Rocephin 2g IV Insulin 7units IV then 5 units IV for high blood sugar. 18:46 05/26/16. Dr Nugent has seen the patient in the ER and is OK with sending the patient home as long as she has enough family to be there to keep her safe as she is a high fall risk due to vertigo. Discussed with her daughter and she will stay with her Mother as long as needed for safety. Patient/family counseled. Old medical records ordered. Disposition: Discharged. Condition: unchanged. CLINICAL IMPRESSION Benign positional vertigo- acute, right ear. Chronic, poorly controlled type 1 diabetes with hyperglycemia. No coma. Acute urinary tract infection with cystitis. Acute generalized weakness. Dehydration. INSTRUCTIONS Warnings: Further evaluation is necessary. GENERAL WARNINGS: Return or contact your physician immediately if your condition worsens or changes unexpectedly, if not improving as expected, or if other problems arise. Your Current Medications: CONTINUE TAKING THE FOLLOWING MEDICATIONS: Atorvastatin 80mg x1 tab daily*. Combigan Ophthalmic. Hydrochlorothiazide Oral : 25 mg daily. Lantanoprost Patricia 0.005% *. Lantus Subcutaneous : 85 units every AM. Lisinopril Oral : 40 mg daily. Methazolamide Oral : Tablet 25 mg, 1 tablet x2 daily. Paroxetine 40mg x2 tabs daily*. Pramipexole 0.25mg x1 tab at bedtime*. Ranitidine HCl Oral : 150 mg 2x a day. RisperiDONE Oral : Tablet Dispersible 0.5 mg, 1 tablet 2x a day. Timolol Mal Patricia 0.5% OP - 1 gtt x2 daily*. TraZODone HCl Oral : 50 mg, 1 1/2 tab at bedtime. Xarelto Oral : Tablet 15 mg, 1 tablet daily. Prescription Medications: Macrobid 100 mg: Take 1 capsule orally every 12 hours for 7 days. No refills. Substitution is permissible. Scopolamine patch behind ear q 72 hours prn vertigo. # 6. Understanding of the discharge instructions verbalized by patient and family. Follow-up with: Shravan Retana MD, Family Practice, , [facility], [address] [place] [address] Follow up in one week. Call for an appointment. (Electronically signed by Ethan Hsu MD 05/27/2016 20:53)
--- NOTE | 2016-05-26 18:47 | ED ORDER SUMMARY ---
..... Patient: GISSELLE WILSON OrderSheet [facility] VisitID: [id number] [address] [place] [address] 71y, F Registration Date/Time: 05/26/2016 ORDER SHEET Weight: 90.7 kg (stated) Allergies: morphine, Penicillin, Sulfa Antibiotics GENERAL ORDERS: Old Records (EKG) (11:45 05/26/2016 Viviane CRUZ) (11:52 RKaruga) Housecleaner Floor (Continuous) (11:05/26/2016 Viviane CRUZ) (12:00 LWhalen R.N.) Chest 1V Urgent (11:55 05/26/2016 Viviane CRUZ) (Ack 11:57 LTapper) (12:00 LWhalen R.N.) UA-Culture if indicated Urgent (11:05/26/2016 Viviane CRUZ) (Ack 11:57 LTapper) (12:00 LWhalen R.N.) Cardiac Panel Stat (11:05/26/2016 Viviane CRUZ) (Ack 11:57 LTapper) (12:00 LWhalen R.N.) BNP Urgent (11:55 05/26/2016 Viviane CRUZ) (Ack 11:57 LTapper) (12:00 LWhalen R.N.) TSH Urgent (11:05/26/2016 Viviane CRUZ) (Ack 11:57 LTapper) (12:00 LWhalen R.N.) Oxygen (2 L/min) (NC) (11:05/26/2016 Viviane CRUZ) (12:00 LWhalen R.N.) Pulse oximeter (11:05/26/2016 Viviane CRUZ) (12:00 LWhalen R.N.) EKG - ER Stat (11:05/26/2016 Viviane CRUZ) (Ack 11:57 LTapper) (12:00 LWhalen R.N.) Blood Culture (No) (N/A) Urgent (12:06 05/26/2016 Viviane CRUZ) (Ack 12:18 LTapper) (13:58 LWhalen R.N.) Lactate, Serum Urgent (12:06 05/26/2016 Viviane CRUZ) (Ack 12:18 LTapper) (13:58 LWhalen R.N.) PCT (Procalcitonin) Urgent (12:06 05/26/2016 Viviane CRUZ) (Ack 12:18 LTapper) (13:58 LWhalen R.N.) CRP Urgent (12:06 05/26/2016 Viviane CRUZ) (Ack 12:18 LTapper) (13:58 LWhalen R.N.) - (Bolus 500 cc NS then 250 cc per hour.) (13:29 05/26/2016 Viviane CRUZ) (Ack 13:31 LTapper) (13:58 LWhalen R.N.) MEDICATION ORDERS: IV FLUIDS: IV Saline Lock (11:55 05/26/2016 Viviane CRUZ) (12:00 LWhalen R.N.) Insulin Reg IV 8 units (NOW) (13:30 05/26/2016 Viviane CRUZ) (14:02 LWhalen R.N.) Rocephin IV 2 gm/50mL (NOW) (13:31 05/26/2016 Viviane CRUZ) (14:00 LWhalen R.N.) Insulin Reg IV 5 units (NOW) (15:34 05/26/2016 Viviane CRUZ) (15:49 LWhalen R.N.) ORDER SHEET NOTES: [Electronically signed by Chano Calderón R.N. (19:18 05/27/2016)] [Electronically signed by Ethan Hsu MD (20:53 05/27/2016)] [Electronically locked/signed by Chano Calderón R.N. (19:18 05/27/2016)]
--- NOTE | 2016-05-27 20:53 | ED MAR SUMMARY ---
..... Medication Administration Record [facility] [address] [place] [address] Patient: GISSELLE WILSON Visit ID: [id number] 71y, F Weight: 90.7 kg Height/Length: 66 in BMI: 32.3 ALLERGIES: morphine, Penicillin, Sulfa Antibiotics Start 13:55 05/26/2016 Chano Calderón R.N. Medication Administered: ROCEPHIN [IVPB] (CEFTRIAXONE SODIUM), Dose: 2 gm IVPB over 1 hour(s), Rate: 150 mL/hr, Dispensed: 50 mL bag, Site: #1 right AC. Medication Ordered: Rocephin IV 2 gm/50mL (NOW). Given 13:57 05/26/2016 Chano Calderón R.N. Medication Administered: INSULIN REG [IVP], Dose: 8 unit IVP over 1 minute(s), Site: #1 right AC. Medication Ordered: Insulin Reg IV 8 units (NOW). Given 15:49 05/26/2016 Chano Calderón R.N. Medication Administered: INSULIN REG [IVP], Dose: 5 unit IVP over 1 minute(s), Site: #1 right AC. Medication Ordered: Insulin Reg IV 5 units (NOW).
--- NOTE | 2016-05-27 20:53 | ED MED RECONCILIATION SUMMARY ---
Patient: GISSELLE WILSON Medication Reconciliation Report [facility] VisitID: [id number] [address] [place] [address] 71y, F Registration Date/Time: 05/26/2016 Weight: 90.7 kg Height/Length: 66 in. BMI: 32.3 ALLERGIES: morphine, Penicillin, Sulfa Antibiotics The patient's Home Medications are listed below: CONTINUE TAKING THE FOLLOWING MEDICATIONS: Atorvastatin 80mg x1 tab daily Combigan Ophthalmic Hydrochlorothiazide Oral 25 mg, daily Lantanoprost Patricia 0.005% Lantus Subcutaneous 85 units, every AM Lisinopril Oral 40 mg, daily Methazolamide Oral (25 mg) 1 tablet, x2 daily Paroxetine 40mg x2 tabs daily Pramipexole 0.25mg x1 tab at bedtime Ranitidine HCl Oral 150 mg, 2x a day RisperiDONE Oral (0.5 mg) 1 tablet, 2x a day Timolol Mal Patricia 0.5% OP - 1 gtt x2 daily TraZODone HCl Oral 50 mg, 1 1/2 tab, at bedtime Xarelto Oral (15 mg) 1 tablet, daily The source(s) of the original Home Medication information: Not obtained. The following Medications were given to the patient in the Emergency Department: Rocephin [IVPB] IVPB bolus 0, then 2 gm 150 mL/hr, administered: 05/26/2016 1:55:00 PM Insulin REG [IVP] IVP 8 unit, administered: 05/26/2016 1:57:00 PM Insulin REG [IVP] IVP 5 unit, administered: 05/26/2016 3:49:00 PM The following Medications were prescribed to the patient: Scopolamine patch behind ear q 72 hours prn vertigo. # 6. -- Ethan Hsu MD Macrobid 100 mg: Take 1 capsule orally every 12 hours for 7 days. No refills. Substitution is permissible. -- Ethan Hsu MD
--- NOTE | 2016-05-27 20:53 | ED MED RECONCILIATION SUMMARY ---
Patient: GISSELLE WILSON Medication Reconciliation Report [facility] VisitID: [id number] [address] [place] [address] 71y, F Registration Date/Time: 05/26/2016 Weight: 90.7 kg Height/Length: 66 in. BMI: 32.3 ALLERGIES: morphine, Penicillin, Sulfa Antibiotics The patient's Home Medications are listed below: CONTINUE TAKING THE FOLLOWING MEDICATIONS: Atorvastatin 80mg x1 tab daily Combigan Ophthalmic Hydrochlorothiazide Oral 25 mg, daily Lantanoprost Patricia 0.005% Lantus Subcutaneous 85 units, every AM Lisinopril Oral 40 mg, daily Methazolamide Oral (25 mg) 1 tablet, x2 daily Paroxetine 40mg x2 tabs daily Pramipexole 0.25mg x1 tab at bedtime Ranitidine HCl Oral 150 mg, 2x a day RisperiDONE Oral (0.5 mg) 1 tablet, 2x a day Timolol Mal Patricia 0.5% OP - 1 gtt x2 daily TraZODone HCl Oral 50 mg, 1 1/2 tab, at bedtime Xarelto Oral (15 mg) 1 tablet, daily The source(s) of the original Home Medication information: Not obtained. The following Medications were given to the patient in the Emergency Department: Rocephin [IVPB] IVPB bolus 0, then 2 gm 150 mL/hr, administered: 05/26/2016 1:55:00 PM Insulin REG [IVP] IVP 8 unit, administered: 05/26/2016 1:57:00 PM Insulin REG [IVP] IVP 5 unit, administered: 05/26/2016 3:49:00 PM The following Medications were prescribed to the patient: Scopolamine patch behind ear q 72 hours prn vertigo. # 6. -- Ethan Hsu MD Macrobid 100 mg: Take 1 capsule orally every 12 hours for 7 days. No refills. Substitution is permissible. -- Ethan Hsu MD
--- NOTE | 2016-05-27 20:53 | ED MAR SUMMARY ---
..... Medication Administration Record [facility] [address] [place] [address] Patient: GISSELLE WILSON Visit ID: [id number] 71y, F Weight: 90.7 kg Height/Length: 66 in BMI: 32.3 ALLERGIES: morphine, Penicillin, Sulfa Antibiotics Start 13:55 05/26/2016 Chano Calderón R.N. Medication Administered: ROCEPHIN [IVPB] (CEFTRIAXONE SODIUM), Dose: 2 gm IVPB over 1 hour(s), Rate: 150 mL/hr, Dispensed: 50 mL bag, Site: #1 right AC. Medication Ordered: Rocephin IV 2 gm/50mL (NOW). Given 13:57 05/26/2016 Chano Calderón R.N. Medication Administered: INSULIN REG [IVP], Dose: 8 unit IVP over 1 minute(s), Site: #1 right AC. Medication Ordered: Insulin Reg IV 8 units (NOW). Given 15:49 05/26/2016 Chano Calderón R.N. Medication Administered: INSULIN REG [IVP], Dose: 5 unit IVP over 1 minute(s), Site: #1 right AC. Medication Ordered: Insulin Reg IV 5 units (NOW).
--- NOTE | 2016-05-27 20:53 | ED DISCHARGE INSTRUCTIONS ---
Patient: GISSELLE WILSON General Instructions Located Within [facility] VisitID: [id number] [address] [place], [place] [id number] 71y, F Registration Date/Time: 05/26/2016 Benign positional vertigo- acute, right ear. Chronic, poorly controlled type 1 diabetes with hyperglycemia. No coma. Acute urinary tract infection with cystitis. Acute generalized weakness. Dehydration. INSTRUCTIONS Warnings: Further evaluation is necessary. GENERAL WARNINGS: Return or contact your physician immediately if your condition worsens or changes unexpectedly, if not improving as expected, or if other problems arise. Your Current Medications: CONTINUE TAKING THE FOLLOWING MEDICATIONS: Atorvastatin 80mg x1 tab daily*. Combigan Ophthalmic. Hydrochlorothiazide Oral : 25 mg daily. Lantanoprost Patricia 0.005% *. Lantus Subcutaneous : 85 units every AM. Lisinopril Oral : 40 mg daily. Methazolamide Oral : Tablet 25 mg, 1 tablet x2 daily. Paroxetine 40mg x2 tabs daily*. Pramipexole 0.25mg x1 tab at bedtime*. Ranitidine HCl Oral : 150 mg 2x a day. RisperiDONE Oral : Tablet Dispersible 0.5 mg, 1 tablet 2x a day. Timolol Mal Patricia 0.5% OP - 1 gtt x2 daily*. TraZODone HCl Oral : 50 mg, 1 1/2 tab at bedtime. Xarelto Oral : Tablet 15 mg, 1 tablet daily. Prescription Medications: Macrobid 100 mg: Take 1 capsule orally every 12 hours for 7 days. No refills. Substitution is permissible. Scopolamine patch behind ear q 72 hours prn vertigo. # 6. Understanding of the discharge instructions verbalized by patient and family. Follow-up with: Shravan Retana MD, Family Practice, , [facility], [address] [place] [address] Follow up in one week. Call for an appointment. ADDITIONAL INFORMATION Benign Positional Vertigo The inner ear is located behind the middle ear. It is a part of the balance center of the body. It contains small calcium particles within fluid filled canals (semi-circular canals). These particles can move out of position as a result of aging, head trauma or disease of the inner ear. Once that happens, movement of the head into certain positions may cause the particles to stimulate the inner ear and create the feeling of vertigo. Vertigo is a false feeling of motion (as if you or the room is spinning). A vertigo attack may cause sudden nausea, vomiting and heavy sweating. Severe vertigo causes a loss of balance and may result in falling. During an attack of vertigo, head movement and body position changes will worsen symptoms. An episode of vertigo may last seconds, minutes or hours. Once you are over the first episode of vertigo, it may never return. Sometimes symptoms recur off and on over several weeks or longer. Home Care: If symptoms are severe, rest quietly in bed. Change positions slowly. There is usually one position that will feel best, such as lying on one side or lying on your back with your head slightly raised on pillows. Do not drive or work with dangerous machinery for one week after symptoms disappear, in case of a sudden return of symptoms. Take medicine as prescribed to relieve your symptoms. Unless another medicine was prescribed for nausea, vomiting and vertigo, you may use [id number] motion sickness pills, such as meclizine (Bonine, Bonamine, Antivert) or dimenhydrinate (Dramamine). Follow Up with your doctor or as directed by our staff. Report any persistent ringing in the ear or hearing loss to your doctor. [NOTE: If you had a CT or MRI scan, it will be reviewed by a specialist. You will be notified of any new findings that may affect your care.] Get Prompt Medical Attention if any of the following occur: Worsening of vertigo not controlled by the medicine prescribed Repeated vomiting not controlled by the medicine prescribed Increased weakness or fainting Severe headache or unusual drowsiness or confusion Weakness of an arm or leg or one side of the face Difficulty with speech or vision Seizure Diabetes (General Information) Cells of the body need glucose (sugar) for fuel. Insulin is the hormone in the body that lets glucose move from the blood into the cells. Diabetes is a chronic health condition where the body is not able to produce enough insulin, or does not respond well to its own insulin. Because the glucose in the blood cannot get into the cells, it builds up in the blood causing high blood sugar (hyperglycemia). Your actual blood sugar level is a result of the balance between several factors. These include what kind of food you eat and how much of it you eat, how much exercise you get, and the amount of insulin present in your body. Eating too much of the wrong kinds of food or not taking diabetes medicine on time can cause high blood sugar. Infections can cause high blood sugar even if you are taking medicines correctly. Missing meals, not eating enough food, or taking too much diabetes medicine can lead to low blood sugar. Untreated over long periods of time, diabetes can cause serious problems such as heart disease, stroke, kidney failure, blindness, nerve pain or loss of feeling in the legs and feet, and gangrene of the feet. With good treatment keeping your blood sugar under control, you can prevent or delay the complications of diabetes. Normal blood sugar levels are 70-130 one to two hours before a meal and not more than 180 two hours after a meal. Home Care: Follow your prescribed diabetic diet and take insulin or oral diabetic medicine exactly as ordered. Monitor blood sugars as advised. Keep a log of your results. This will help your doctor adjust your medicines to keep your blood sugar under control. Try to achieve your ideal weight. Proper diet and exercise can reduce or eliminate the need to take diabetes medicine. Avoid tobacco smoking, which worsens the effect of diabetes on your circulation. The risk of a heart attack in a diabetic is 15 times more likely if you smoke. Pay attention to good foot care. If you have lost feeling in your feet you may not notice an injury or infection. Check your feet and between your toes at least once a week. Wear a medical alert bracelet or carry a card in your wallet explaining that you are diabetic. In the event that you become very ill and are unable to give this information, it will help medical personnel provide proper care. If you become sick with a cold, the flu, or an infection (viral or bacterial), please do the following: Review your diabetes sick plan and contact your physician as instructed. You may have been advised to call the doctor immediately if: Your blood sugar is above 240 while taking your diabetes medication Your urine ketone levels are above normal or showing high levels of ketones You have been vomiting more than 6 hours You experience difficulty to trouble breathing You develop a high fever or you have had a fever for a couple of days and you aren't getting better You become light-headed and more sleepy than usual Keep taking your oral diabetes medicine (pills) even if you have been vomiting and feeling sick. Contact your doctor immediately for advice because you may need insulin to lower your blood sugar until you recover from your illness. Keep taking your insulin, even if you have been vomiting and feeling sick. Call your doctor immediately and ask if a temporary adjustment of your insulin dose is needed based on your blood glucose (sugar) results. Check your blood sugar every 2 to 4 hours, or at least 4 times a day. Check your keytones often. If you are vomiting and having diarrhea, monitor them more frequently. Don't skip meals. Try to eat small meals on a regular schedule, even if you do not have an appetite. Drink water or other calorie-free, non-caffeinated liquids to stay hydrated. If you are nauseated or vomiting, drink small amounts (sips, a teaspoon) every 5 minutes. To prevent dehydration, try to drink a cup or 8 ounces of fluids every hour while you are awake. Always carry a source of fast-acting sugar with you in case you get symptoms of low blood sugar (below 70). At the first sign of low blood sugar, eat or drink 15 to 20 grams of fast-acting sugar to raise your blood sugar. Examples include: 3 to 4 glucose tablets (found at most drugstores) 4 ounces (1/2 cup) of regular (not diet) softdrinks 4 ounces (1/2 cup) of any fruit juice 8 ounces (1 cup) of milk 5 to 6 pieces of hard candy 1 tablespoon of honey Check your blood sugar 15 minutes after treating yourself. If it is still low (below 70), take another 15 to 20 grams of fast-acting sugar. Test again in 15 minutes. If it returns to normal (70 or above), eat a snack or meal to keep your blood sugar in a safe range. If it remains low, call your doctor or go to an emergency room. Follow Up with your doctor as advised by our staff. For more information, contact the [place] [employer]. www.diabetes.org or 211-962-7548. Get Prompt Medical Attention if any of the following occur: HIGH BLOOD SUGAR: frequent urination, dizziness, drowsiness, thirst, headache, nausea or vomiting, abdominal pain, vision changes, fast breathing, confusion or loss of consciousness LOW BLOOD SUGAR: fatigue, headache, shakes, excess sweating, hunger, feeling anxious or restless, vision changes, drowsiness, weakness, confusion or loss of consciousness Chest pain or shortness of breath Dizziness or fainting Weakness of an arm or leg or one side of the face Trouble with speech or vision Bladder Infection,Female (Adult) A bladder infection ("cystitis" or "UTI") usually causes a constant urge to urinate and a burning when passing urine. Urine may be cloudy, smelly or dark. There may be pain in the lower abdomen. A bladder infection occurs when bacteria from the vaginal area enter the bladder opening (urethra). This can occur from sexual intercourse, wearing tight clothing, dehydration and other factors. Home Care: Drink lots of fluids (at least 6-8 glasses a day, unless you must restrict fluids for other medical reasons). This will force the medicine into your urinary system and flush the bacteria out of your body. Avoid sexual intercourse until your symptoms are gone. Avoid caffeine, alcohol and spicy foods. These can irritate the bladder. A bladder infection is treated with antibiotics. You may also be given Pyridium (generic = phenazopyridine) to reduce the burning sensation. This medicine will cause your urine to become a bright orange color. The orange urine may stain clothing. You may wear a pad or panty-liner to protect clothing. Preventing Future Infections: Always wipe from front to back after a bowel movement. Keep the genital area clean and dry. Drink plenty of fluids each day to avoid dehydration. Both sexual partners should wash before intercourse. Urinate right after intercourse to flush out the bladder. Wear cotton underwear and cotton-lined panty hose; avoid tight-fitting pants. If you are on control pills and are having frequent bladder infections, discuss with your doctor. Follow Up: Return to this facility or see your doctor if ALL symptoms are not gone after three days of treatment. Get Prompt Medical Attention if any of the following occur: Fever of 100.4F (38C) or higher, or as directed by your healthcare provider No improvement by the third day of treatment Increasing back or abdominal pain Repeated vomiting; unable to keep medicine down Weakness, dizziness or fainting Vaginal discharge Pain, redness or swelling in the labia (outer vaginal area) You have been given the following additional information: Benign Positional Vertigo Diabetes, General Info Bladder Infection, Female (Adult) (Electronically signed by Ethan Hsu MD 05/27/2016 20:53)
== END 2016-05-26 19:00 | disposition home or self-care (01) ==
LOC: ED SRH 11:28
DX: H81.11 Benign paroxysmal vertigo, right ear (principal); E10.65 Type 1 diabetes mellitus with hyperglycemia; N30.90 Cystitis, unspecified without hematuria; R53.1 Weakness; E86.0 Dehydration; I10 Essential (primary) hypertension; Z79.82 Long term (current) use of aspirin; Z79.899 Other long term (current) drug therapy; Z88.5 Allergy status to narcotic agent; Z88.0 Allergy status to penicillin
CPT/HCPCS: 81460; 90004; 90065; 90074; 90098; 90100; 90148; 90469; 90616; 91320; 91585; 92031; 92610; 92720; 93004; 93140; 95059

== ENCOUNTER 2016-07-01 11:28 | Emergency (ER) | payer OTHER ==
--- NOTE | 2016-07-01 13:39 | DIAGNOSTIC IMAGING REPORT ---
PROCEDURE: XR HUMERUS - LEFT INDICATION: TRAUMA/INJURY TECHNIQUE: AP and lateral views. COMPARISON: None. FINDINGS: No fracture or dislocation. Mild AC joint degenerative changes. Soft tissues are unremarkable. IMPRESSION: 1. No acute changes.
--- NOTE | 2016-07-01 13:41 | DIAGNOSTIC IMAGING REPORT ---
PROCEDURE: XR THORACIC SPINE 3 VIEWS INDICATION: TRAUMA/INJURY TECHNIQUE: Three views. COMPARISON: Thoracic spine x-ray 05/10/2012. FINDINGS: Normal alignment without fracture. Moderate degenerative changes. Paraspinal soft tissues are normal. No significant interval change. IMPRESSION: 1. No acute fracture 2. Moderate degenerative changes
--- NOTE | 2016-07-01 13:44 | DIAGNOSTIC IMAGING REPORT ---
PROCEDURE: XR SHOULDER 2 OR MORE VIEW B/L INDICATION: Fell in bathtub, initial encounter. TECHNIQUE: Four views of each shoulder. COMPARISON: None. FINDINGS: Left shoulder: No fracture or dislocation. Mild AC joint degenerative changes. Soft tissues are unremarkable. Right shoulder: Mild AC joint degenerative changes. There is no fracture or dislocation. 8 mm calcification projecting over the right femoral head suggestive of calcific tendonitis. Inferior displacement of the humeral head suggestive of a shoulder effusion. IMPRESSION: 1. Mild degenerative changes of the AC joints bilaterally 2. Findings suggestive of right shoulder calcific tendonitis 3. Suspect right shoulder effusion.
--- NOTE | 2016-07-01 13:47 | DIAGNOSTIC IMAGING REPORT ---
PROCEDURE: XR LUMBAR SPINE 2 OR 3 VIEWS INDICATION: Fell in the bathtub, initial encounter TECHNIQUE: Three views. COMPARISON: Lumbar spine x-ray 12/18/2012. FINDINGS: Osteopenia. Normal alignment without fracture. Lumbarized S1. Mild degenerative changes. Aortic stent. No significant interval change. IMPRESSION: 1. No acute fracture 2. Osteopenia 3. Mild degenerative changes
--- NOTE | 2016-07-01 16:20 | ED NURSING NOTES ---
Clinical Report - Nurses [facility] [address] [place] [place] [address] 07/01/2016 11:30 Patient: GISSELLE WILSON TRIAGE Triage time 11:35. Acuity: LEVEL 3. Chief Complaint: FALL while attempting to get up, landed on their back; slipped (Fell in the bathtub). Alert. No acute distress. SEPSIS SCREEN: Sepsis Screen: negative. Negative (no infection suspected/documented). DAGMAR COMA SCORE: Dagmar Coma Scale: 15- eyes open spontaneously (4); best verbal response- oriented x 4 (5); best motor response- obeys commands (6). --11:43 Rola Butt R.N. 11:35 07/01/16. BP: 183/68 taken on the left arm, while sitting. HR: 56. RR: 20. O2 saturation: 98%. Temp: 98.5 F. Pain level now: 12/20. --11:43 Rola Butt R.N. 11:35 07/01/16. BP: 183/68 taken on the left arm, while sitting. HR: 56. RR: 20. O2 saturation: 98%. Temp: 98.5 F. Pain level now: 12/20. --11:44 Rola Butt R.N. Weight: 90.7 kg stated. Height/Length: 66 inches Per Patient. BMI: 32.3. --11:42 Rola Butt R.N. Medications Atorvastatin 80mg x1 tab daily. Combigan Ophthalmic. Hydrochlorothiazide Oral 25 mg, daily. Lantanoprost Particia 0.005% . Lantus Subcutaneous 85 units, every AM. Lisinopril Oral 40 mg, daily. Methazolamide Oral (Tablet 25 mg) 1 tablet, x2 daily. Paroxetine 40mg x2 tabs daily. Pramipexole 0.25mg x1 tab at bedtime. Ranitidine HCl Oral 150 mg, 2x a day. RisperiDONE Oral (Tablet Dispersible 0.5 mg) 1 tablet, 2x a day. Timolol Mal Patricia 0.5% OP - 1 gtt x2 daily. TraZODone HCl Oral 50 mg, 1 1/2 tab, at bedtime. Xarelto Oral (Tablet 15 mg) 1 tablet, daily. --16:10 Rola Butt R.N. Medication/allergy information source: the patient. --11:43 Rola Butt R.N. Allergies morphine. Penicillin. Sulfa Antibiotics. --16:10 Rola Butt R.N. History <<STRICKEN ENTRY-- Arrived by EMS. Historian: patient. Primary physician (sharon). Location of injuries: head, back, right buttock and right shoulder. This occurred just prior to arrival. She has had moderate right arm pain. She has had back pain. Limited ROM present. Trauma activation: Pre-hospital notification of patient arrival was not received. Treatment SOFTWARE TEST TECHNICIAN: EMS treatment SOFTWARE TEST TECHNICIAN verbally communicated. See EMS report. Upon arrival patient awake. (Pain in the rt buttock, lower back and the rt shoulder.). PAST MEDICAL HX: Tetanus status: unknown. The patient is post-menopausal. SOCIAL HX: Smoker- current status unknown. History of drug use: marijuana. Recently used drugs yesterday. No alcohol use. FALL RISK ASSESSMENT: Fall risk assessment completed. No fall risk identified. NUTRITIONAL RISK ASSESSMENT: The nutritional risk assessment revealed no deficiencies. FUNCTIONAL ASSESSMENT: Functional assessment: no impairments noted. LEARNING NEEDS ASSESSMENT: The learning needs assessment revealed no barriers. SKIN INTEGRITY ASSESSMENT: Skin integrity risk assessment completed. No skin integrity risk identified. --11:43 Rola Butt R.N. --END STRIKE>> Correction --11:47 Rola Butt R.N. Arrived by EMS. Historian: patient. Primary physician (sharon). Location of injuries: head, back, left buttock and right shoulder. This occurred just prior to arrival. She has had moderate right arm pain. She has had back pain. Limited ROM present. Trauma activation: Pre-hospital notification of patient arrival was not received. Treatment SOFTWARE TEST TECHNICIAN: EMS treatment SOFTWARE TEST TECHNICIAN verbally communicated. See EMS report. Upon arrival patient awake. (Pain in the rt buttock, lower back and the rt shoulder.). PAST MEDICAL HX: Tetanus status: unknown. The patient is post-menopausal. SOCIAL HX: Smoker- current status unknown. History of drug use: marijuana. Recently used drugs yesterday. No alcohol use. FALL RISK ASSESSMENT: Fall risk assessment completed. No fall risk identified. NUTRITIONAL RISK ASSESSMENT: The nutritional risk assessment revealed no deficiencies. FUNCTIONAL ASSESSMENT: Functional assessment: no impairments noted. LEARNING NEEDS ASSESSMENT: The learning needs assessment revealed no barriers. SKIN INTEGRITY ASSESSMENT: Skin integrity risk assessment completed. No skin integrity risk identified. --11:47 Rola Butt R.N. PROBLEMS: Benign Positional Vertigo. Weakness. Hypertension. Hypoxia. Influenza. Hypoglycemia. MRSA Infection. Dyspnea. UTI - Urinary Tract Infection. DVT - Deep Venous Thrombosis. Renal Insufficiency. Bronchitis. Blindness. Wound Infection. TIA - Transient Ischemic Attack. Concussion. Abrasion(s). Fall. Colon Cancer. Vomiting. Abdominal Pain. Myofascial Strain. Contusion. Anxiety Reaction. Arthritis. Back Pain. Coronary Artery Disease. Cataracts. CVA - Cerebrovascular Accident. Depression. Diabetes Mellitus. Hyperlipidemia. Peripheral Vascular Disease. Gastroesophageal Reflux Disease. --11:40 Rola Butt R.N. ADDITIONAL SURGERIES: Abdominal Aortic Aneurysm Repair. Appendectomy. Colostomy. Colostomy takedown . Tonsillectomy. --11:40 Rola Butt R.N. Interventions ID band on patient. To room. --11:43 Rola Butt R.N. PHYSICAL ASSESSMENT To room via stretcher. Patient gowned. GENERAL / NEURO / PSYCH: Alert. Oriented X 4. Appears in no acute distress. Appears in pain and anxious. HEENT: ( "Hit the back of my head"). RESPIRATORY: Respirations not labored. CVS: Capillary refill less than 2 seconds. GI / : Abdomen nontender. ( Healing colostomy takedown site, gauge applied.). EXTREMITIES: Limited ROM present in the right shoulder. Neuro-vascular status intact to the extremity. SKIN: Skin intact. Skin is warm and dry. --11:45 Rola Butt R.N. HEENT: Head: tenderness localized to the occipital aspect of the head. BACK: Back: tenderness located in the mid-sacral area. Range of motion limited (lower back). Left buttock: erythema. --11:46 Rola Butt R.N. NURSING PROGRESS NOTES Cold pack applied. Patient gowned. Two patient identifiers checked. Call light placed in reach. Side rails up x 2. Bed placed in lowest position. Brakes of bed on. Patient ready for evaluation- chart flagged. --11:47 Rola Butt R.N. 13:09 07/01/16. Patient ID band checked for patient name: patient confirmed. Instructions provided to collect clean catch urine and patient verbalized understanding. Clean catch urine collected with return of yellow-colored cloudy urine; sample sent to lab for urinalysis, culture and HCG. Specimen labeled in the presence of the patient. --13:09 Rola Butt R.N. 13:10 07/01/16. ( Patient assisted to and from the bathroom, due to sight and unsteady, only standby assist. Tolerated well.). --13:10 Rola Butt R.N. 13:10 07/01/16. Patient transported to radiology by stretcher with tech. --13:10 Rola Butt R.N. 13:47 07/01/2016 Site #1 started via IV in the right antecubital space with an 22g angiocath, with aseptic technique and good blood return; one attempt. Saline lock flushed with 10 mL saline (red, green and purple tubes drawn and sent.). --13:47 Rola Butt R.N. ( I helped patient get dressed into [id number]-hayfhi and settled into a chair at the bed side awaiting technical publications writer and daughter for transport). --16:00 [facility] 17:30 07/01/16. BP: 160/71. HR: 70. RR: 18. O2 saturation: 98% on room air. 16:39 07/01/16. BP: 159/70. HR: 72. RR: 18. O2 saturation: 98% on room air. 15:28 07/01/16. BP: 150/78. HR: 89. RR: 18. O2 saturation: 97% on room air. 11:35 07/01/16. BP: 183/68 taken on the left arm, while sitting. HR: 56. RR: 20. O2 saturation: 98%. Temp: 98.5 F. Pain level now: 12/20. --17:32 Rola Butt R.N. Regular, ADA diet offered; tolerated well. --17:33 Rola Butt R.N. 15:30 07/01/2016 Dilaudid (HYDROmorphone HCl PF) IVP 0.5 mg given over 1 minute(s) via site #1. Allergies verified, confirmed 5 rights and sedative warning given to the patient. IV patency established. IV site checked: no pain, redness, or swelling. IV flushed thoroughly pre- and post-medication administration. IVP given by RN. --18:20 Rola Butt R.N. 15:32 07/01/2016 Ativan (LORazepam) IVP 0.5 mg given over 1 minute(s) via site #1. Allergies verified, confirmed 5 rights and sedative warning given to the patient. IV patency established. IV site checked: no pain, redness, or swelling. IV flushed thoroughly pre- and post-medication administration. IVP given by RN. --18:21 Rola Butt R.N. 18:10 07/01/2016 Site #1 removed upon discharge. Catheter intact. Bandaid applied. --18:22 Rola Butt R.N. DISPOSITION / DISCHARGE Condition at departure: improved. No learning barriers present. Discharge instructions provided and reviewed with the patient and family. Reviewed medication(s) side effects, precautions, dosing and course information. Prescription(s) given to the patient. Patient verbalized understanding. Written instructions provided in Portuguese. The patient was discharged home and accompanied by family. She left the Emergency Department in a wheelchair and via private vehicle. Family member driving. Medication list reviewed and validated. --18:19 Rola Butt R.N. 18:19 07/01/16. BP: 145/74. HR: 74. RR: 18. O2 saturation: 98%. Temp: deferred. Pain level now: 06/20. 17:30 07/01/16. BP: 160/71. HR: 70. RR: 18. O2 saturation: 98% on room air. 16:39 07/01/16. BP: 159/70. HR: 72. RR: 18. O2 saturation: 98% on room air. 15:28 07/01/16. BP: 150/78. HR: 89. RR: 18. O2 saturation: 97% on room air. 13:10 07/01/16. BP: 156/78. HR: 79. RR: 18. O2 saturation: 98% on room air. Pain level now: 08/20. 11:35 07/01/16. BP: 183/68 taken on the left arm, while sitting. HR: 56. RR: 20. O2 saturation: 98%. Temp: 98.5 F. Pain level now: 12/20. --18:19 Rola Butt R.N. Locked/Released at 07/01/2016 18:22 by Rola Butt R.N.
--- NOTE | 2016-07-01 16:20 | ED ORDER SUMMARY ---
..... Patient: GISSELLE WILSON OrderSheet [facility] VisitID: [id number] [address] [place] [address] 71y, F Registration Date/Time: 07/01/2016 ORDER SHEET Weight: 90.7 kg (stated) Allergies: morphine, Penicillin, Sulfa Antibiotics GENERAL ORDERS: Shoulder 2V or more Left Urgent (12:44 07/01/2016 Viviane CRUZ) (Ack 12:47 Bjorn) (13:46 SRoberts R.N.) Humerus Left Urgent (12:44 07/01/2016 Viviane CRUZ) (Ack 12:47 Bjorn) (13:46 SRoberts R.N.) Thoracic Spine 3V Urgent (12:45 07/01/2016 Viviane CRUZ) (Ack 12:47 Bjorn) (13:46 SRoberts R.N.) Lumbar Spine 2 or 3V Urgent (12:45 07/01/2016 Viviane CRUZ) (Ack 12:47 Bjorn) (13:46 SRoberts R.N.) Cardiac Panel Stat (12:46 07/01/2016 Viviane CRUZ) (Ack 12:50 Bjorn) (13:46 SRoberts R.N.) UA-Culture if indicated Urgent (12:46 07/01/2016 Viviane CRUZ) (Ack 12:50 Bjorn) (13:10 SRoberts R.N.) Shoulder 2V or more Right Urgent (13:02 07/01/2016 Viviane CRUZ) (Cancelled: Duplicate Order13:16 SRoberts R.N.) Shoulder 2V or more Bilat Urgent (13:03 07/01/2016 Viviane CRUZ) (Ack 13:19 Bjorn) (13:46 SRoberts R.N.) - (help to get dressed and call ride..) (15:22 07/01/2016 Viviane CRUZ) (Ack 15:58 RKaruga) (15:58 RKaruga) MEDICATION ORDERS: IV FLUIDS: IV Saline Lock (12:46 07/01/2016 Viviane CRUZ) (13:47 SRoberts R.N.) Dilaudid IV 0.5 mg (NOW) (15:22 07/01/2016 Viviane CRUZ) (Ack 15:29 Sathya R.N.) (18:20 aSthya R.N.) Ativan IV 0.5 mg (NOW) (15:07/01/2016 Viviane CRUZ) (Ack 15:29 Sathya R.N.) (18:21 Sathya R.N.) ORDER SHEET NOTES: [Electronically signed by Rola Butt R.N. (18:22 07/01/2016)] [Electronically signed by Ethan Hsu MD (14:50 07/07/2016)] [Electronically locked/signed by Rola Butt R.N. (18:22 07/01/2016)]
--- NOTE | 2016-07-01 16:20 | ED CLINICAL REPORT ---
Clinical Report - [facility] [address] [place] [address] 07/01/2016 11:30 Patient: GISSELLE WILSON Time Seen: 12:46 Apr 2016. Arrived- By ambulance. Historian- patient and EMS personnel. CPT: ER phys charges level 4 (#[id number]). HISTORY OF PRESENT ILLNESS Chief Complaint: INJURY TO MID- and LOWER BACK and LEFT UPPER EXTREMITY (SHOULDER and ARM). Location of injuries- mid and lower back and left shoulder and left arm. The injury occurred just prior to arrival. Fell. Occurred at home. No blow to the head, neck pain or loss of consciousness. Not dazed. REVIEW OF SYSTEMS No dizziness, loss of vision, hearing loss, chest pain or weakness. No headache, nausea, abdominal pain, laceration or fever. No vomiting. She has no pain on weight bearing. All systems otherwise negative, except as recorded above. PAST HISTORY Benign Positional Vertigo. Weakness. Hypertension. Hypoxia. Influenza. Hypoglycemia. MRSA Infection. Dyspnea. UTI - Urinary Tract Infection. DVT - Deep Venous Thrombosis. Renal Insufficiency. Bronchitis. Blindness. Wound Infection. TIA - Transient Ischemic Attack. Concussion. Abrasion(s). Fall. Colon Cancer. Vomiting. Abdominal Pain. Myofascial Strain. Contusion. Anxiety Reaction. Arthritis. Back Pain. Coronary Artery Disease. Cataracts. CVA - Cerebrovascular Accident. Depression. Diabetes Mellitus. Hyperlipidemia. Peripheral Vascular Disease. Gastroesophageal Reflux Disease. --11:40 Rola Butt R.N. ADDITIONAL SURGERIES: Abdominal Aortic Aneurysm Repair. Appendectomy. Colostomy. Colostomy takedown . Tonsillectomy. Medications: Atorvastatin 80mg x1 tab daily. Combigan Ophthalmic. Hydrochlorothiazide Oral 25 mg, daily. Lantanoprost Patricia 0.005% . Lantus Subcutaneous 85 units, every AM. Lisinopril Oral 40 mg, daily. Methazolamide Oral (Tablet 25 mg) 1 tablet, x2 daily. Paroxetine 40mg x2 tabs daily. Pramipexole 0.25mg x1 tab at bedtime. Ranitidine HCl Oral 150 mg, 2x a day. RisperiDONE Oral (Tablet Dispersible 0.5 mg) 1 tablet, 2x a day. Timolol Mal Patricia 0.5% OP - 1 gtt x2 daily. TraZODone HCl Oral 50 mg, 1 1/2 tab, at bedtime. Xarelto Oral (Tablet 15 mg) 1 tablet, daily. Allergies: morphine. Penicillin. Sulfa Antibiotics. SOCIAL HISTORY History of drug use: marijuana. No alcohol use. ADDITIONAL NOTES The nursing notes have been reviewed. PHYSICAL EXAM Vital Signs: 07/01/2016 11:35 BP: 183/68. HR: 56. RR: 20. O2 saturation: 98%. Temp: 98.5 F. Pain level now: 12/20. Appearance: Alert. Patient in mild distress. Head: Head non-tender. No swelling of head. Eyes: Pupils equal, round and reactive to light. EOM intact. ENT: No dental injury. Pharynx normal. Neck: Painless ROM. Non-tender. CVS: Heart sounds normal. Pulses normal. Respiratory: Breath sounds normal. Chest nontender. Abdomen: No visible injury. Soft and nontender. Bowel sounds normal. Back: Moderate soft-tissue tenderness in the right lower and left lower thoracic area and right upper and mid and left upper and mid lumbar area. Muscle spasm. Skin: Skin intact. Skin warm. Normal skin color. Extremities: Normal inspection. Right shoulder: moderate tenderness located in the anterior aspect of the shoulder. Limited ROM due to pain. Neurovascular intact distally. No swelling, laceration, abrasion or deformity. No joint effusion. Left shoulder: moderate tenderness and mild swelling located in the anterior and lateral aspect of the shoulder. Limited ROM due to pain. Neurovascular intact distally. No laceration, abrasion, ecchymosis or deformity. No joint effusion. Left arm: moderate tenderness located in the upper arm. Neurovascular intact distally. No swelling, laceration, abrasion or deformity. Pelvis stable. No lower extremity edema. Neuro: Oriented X 3. No motor deficit. No sensory deficit. Abnormal reflexes. LABS, X-RAYS, AND EKG X-Rays: Left shoulder negative. Left humerus negative. T-Spine X-rays: Degenerative joint disease. Views: 2 view T-spine series. Technique: good. The X-rays were independently viewed by me and interpreted by the radiologist. LS-Spine X-rays: Degenerative joint disease. No fracture. Views: AP, lateral and obliques. Technique: good. The X-rays were independently viewed by me and interpreted by the radiologist. Rt Shoulder X-ray: No fracture. Normal alignment. (DJD, tendonitis and small effusion). Views: AP with external rotation and AP with internal rotation. Technique: good. The X-rays were independently viewed by me and interpreted by the radiologist. PROGRESS AND PROCEDURES Course of Care: Heplock Ativan 0.5 mg IV Dilaudid 0.5 mg IV. Patient/family counseled. Disposition: Discharged. Condition: stable. CLINICAL IMPRESSION Contusion to the right shoulder and left shoulder and left upper arm. (mid and lower back,). Fall on same level by slipping. INSTRUCTIONS Apply ice for 15-20 minutes three times a day for one days followed by moist heat three times a day for three days until better. You may walk and bear weight as tolerated. Warnings: SEDATIVE MEDICATION: You were given sedative medication during your visit. Do not drive or operate dangerous machinery. GENERAL WARNINGS: Return or contact your physician immediately if your condition worsens or changes unexpectedly, if not improving as expected, or if other problems arise. Prescription Medications: Hydrocodone/APAP 5mg/325mg: take 1 to 2 orally every 6 hours as needed for pain. Dispense fifteen (15). No refills. Robaxin 750 mg: Take 2 orally every 6 hours as needed for muscle spasm. Dispense thirty (30). No refills. Substitution is permissible. Follow-up: Follow up with your doctor in one week. Call for an appointment. Understanding of the discharge instructions verbalized by patient. (Electronically signed by Ethan Hsu MD 07/07/2016 14:50) Addenda pat GISSELLE WILSON VisitID: [id number] Date: 07/01/2016 07/03/2016 16:18 positive UA, reviewed by Gloria Vieira PA-C. Per provider, RX for cipro 500mg BID x5 days. Pt notified of UTI and need for antibiotics. Pt verbalizes understanding. RX called into [facility] per patient's preference and left VM on confidential pharmacy line. (Electronically signed by Wendy Frye R.N. - 07/03/2016 16:18) 07/04/2016 9:20 Called phone number and checked to see if RX was picked up that was called in yesterday. Per caregiver, RX has not been picked up. Caregiver will scrap picker RX today that was called in by charge yesterday to [facility]. Gave caregiver ED phone number for any questions or concerns. (Electronically signed by Michael Mejia R.N. - 07/04/2016 9:20) 07/04/2016 10:39 Caregiver called back, no RX was called in. Called in to [facility], spoke with pharmacist Michael, Cipro 500mg BID for 5 days was called in. (Electronically signed by Michael Mejia R.N. - 07/04/2016 10:39) 07/04/2016 11:08 Pharmacy called, stated patient may have potiental allergy to Cipro, called patient and she confirmed that she does not have an allergy to Cipro. Pharmacy aware and will fill RX. (Electronically signed by Michael Mejia R.N. - 07/04/2016 11:08)
--- NOTE | 2016-07-01 16:20 | ED ORDER SUMMARY ---
..... Patient: GISSELLE WILSON OrderSheet [facility] VisitID: [id number] [address] [place] [address] 71y, F Registration Date/Time: 07/01/2016 ORDER SHEET Weight: 90.7 kg (stated) Allergies: morphine, Penicillin, Sulfa Antibiotics GENERAL ORDERS: Shoulder 2V or more Left Urgent (12:44 07/01/2016 Viviane CRUZ) (Ack 12:47 Bjorn) (13:46 SRoberts R.N.) Humerus Left Urgent (12:44 07/01/2016 Viviane CRUZ) (Ack 12:47 Bjorn) (13:46 SRoberts R.N.) Thoracic Spine 3V Urgent (12:45 07/01/2016 Viviane CRUZ) (Ack 12:47 Bjorn) (13:46 SRoberts R.N.) Lumbar Spine 2 or 3V Urgent (12:45 07/01/2016 Viviane CRUZ) (Ack 12:47 Bjorn) (13:46 SRoberts R.N.) Cardiac Panel Stat (12:46 07/01/2016 Viviane CRUZ) (Ack 12:50 Bjorn) (13:46 SRoberts R.N.) UA-Culture if indicated Urgent (12:46 07/01/2016 Viviane CRUZ) (Ack 12:50 Bjorn) (13:10 SRoberts R.N.) Shoulder 2V or more Right Urgent (13:02 07/01/2016 Viviane CRUZ) (Cancelled: Duplicate Order13:16 SRoberts R.N.) Shoulder 2V or more Bilat Urgent (13:03 07/01/2016 Viviane CRUZ) (Ack 13:19 Bjorn) (13:46 SRoberts R.N.) - (help to get dressed and call ride..) (15:22 07/01/2016 Viviane CRUZ) (Ack 15:58 RKaruga) (15:58 RKaruga) MEDICATION ORDERS: IV FLUIDS: IV Saline Lock (12:46 07/01/2016 Viviane CRUZ) (13:47 SRoberts R.N.) Dilaudid IV 0.5 mg (NOW) (15:22 07/01/2016 Viviane CRUZ) (Ack 15:29 Sathya R.N.) (18:20 Sathya R.N.) Ativan IV 0.5 mg (NOW) (15:07/01/2016 Viviane CRUZ) (Ack 15:29 Sathya R.N.) (18:21 Sathya R.N.) ORDER SHEET NOTES: [Electronically signed by Rola Butt R.N. (18:22 07/01/2016)] [Electronically signed by Ethan Hsu MD (14:50 07/07/2016)] [Electronically locked/signed by Rola Butt R.N. (18:22 07/01/2016)]
--- NOTE | 2016-07-01 16:20 | ED CLINICAL REPORT ---
Clinical Report - Physicians/Mid Levels [facility] [address] [place] [address] 07/01/2016 11:30 Patient: GISSELLE WILSON Time Seen: 12:46 Apr 2016. Arrived- By ambulance. Historian- patient and EMS personnel. CPT: ER phys charges level 4 (#[id number]). HISTORY OF PRESENT ILLNESS Chief Complaint: INJURY TO MID- and LOWER BACK and LEFT UPPER EXTREMITY (SHOULDER and ARM). Location of injuries- mid and lower back and left shoulder and left arm. The injury occurred just prior to arrival. Fell. Occurred at home. No blow to the head, neck pain or loss of consciousness. Not dazed. REVIEW OF SYSTEMS No dizziness, loss of vision, hearing loss, chest pain or weakness. No headache, nausea, abdominal pain, laceration or fever. No vomiting. She has no pain on weight bearing. All systems otherwise negative, except as recorded above. PAST HISTORY Benign Positional Vertigo. Weakness. Hypertension. Hypoxia. Influenza. Hypoglycemia. MRSA Infection. Dyspnea. UTI - Urinary Tract Infection. DVT - Deep Venous Thrombosis. Renal Insufficiency. Bronchitis. Blindness. Wound Infection. TIA - Transient Ischemic Attack. Concussion. Abrasion(s). Fall. Colon Cancer. Vomiting. Abdominal Pain. Myofascial Strain. Contusion. Anxiety Reaction. Arthritis. Back Pain. Coronary Artery Disease. Cataracts. CVA - Cerebrovascular Accident. Depression. Diabetes Mellitus. Hyperlipidemia. Peripheral Vascular Disease. Gastroesophageal Reflux Disease. --11:40 Rola Butt R.N. ADDITIONAL SURGERIES: Abdominal Aortic Aneurysm Repair. Appendectomy. Colostomy. Colostomy takedown . Tonsillectomy. Medications: Atorvastatin 80mg x1 tab daily. Combigan Ophthalmic. Hydrochlorothiazide Oral 25 mg, daily. Lantanoprost Patricia 0.005% . Lantus Subcutaneous 85 units, every AM. Lisinopril Oral 40 mg, daily. Methazolamide Oral (Tablet 25 mg) 1 tablet, x2 daily. Paroxetine 40mg x2 tabs daily. Pramipexole 0.25mg x1 tab at bedtime. Ranitidine HCl Oral 150 mg, 2x a day. RisperiDONE Oral (Tablet Dispersible 0.5 mg) 1 tablet, 2x a day. Timolol Mal Patricia 0.5% OP - 1 gtt x2 daily. TraZODone HCl Oral 50 mg, 1 1/2 tab, at bedtime. Xarelto Oral (Tablet 15 mg) 1 tablet, daily. Allergies: morphine. Penicillin. Sulfa Antibiotics. SOCIAL HISTORY History of drug use: marijuana. No alcohol use. ADDITIONAL NOTES The nursing notes have been reviewed. PHYSICAL EXAM Vital Signs: 07/01/2016 11:35 BP: 183/68. HR: 56. RR: 20. O2 saturation: 98%. Temp: 98.5 F. Pain level now: 12/20. Appearance: Alert. Patient in mild distress. Head: Head non-tender. No swelling of head. Eyes: Pupils equal, round and reactive to light. EOM intact. ENT: No dental injury. Pharynx normal. Neck: Painless ROM. Non-tender. CVS: Heart sounds normal. Pulses normal. Respiratory: Breath sounds normal. Chest nontender. Abdomen: No visible injury. Soft and nontender. Bowel sounds normal. Back: Moderate soft-tissue tenderness in the right lower and left lower thoracic area and right upper and mid and left upper and mid lumbar area. Muscle spasm. Skin: Skin intact. Skin warm. Normal skin color. Extremities: Normal inspection. Right shoulder: moderate tenderness located in the anterior aspect of the shoulder. Limited ROM due to pain. Neurovascular intact distally. No swelling, laceration, abrasion or deformity. No joint effusion. Left shoulder: moderate tenderness and mild swelling located in the anterior and lateral aspect of the shoulder. Limited ROM due to pain. Neurovascular intact distally. No laceration, abrasion, ecchymosis or deformity. No joint effusion. Left arm: moderate tenderness located in the upper arm. Neurovascular intact distally. No swelling, laceration, abrasion or deformity. Pelvis stable. No lower extremity edema. Neuro: Oriented X 3. No motor deficit. No sensory deficit. Abnormal reflexes. LABS, X-RAYS, AND EKG X-Rays: Left shoulder negative. Left humerus negative. T-Spine X-rays: Degenerative joint disease. Views: 2 view T-spine series. Technique: good. The X-rays were independently viewed by me and interpreted by the radiologist. LS-Spine X-rays: Degenerative joint disease. No fracture. Views: AP, lateral and obliques. Technique: good. The X-rays were independently viewed by me and interpreted by the radiologist. Rt Shoulder X-ray: No fracture. Normal alignment. (DJD, tendonitis and small effusion). Views: AP with external rotation and AP with internal rotation. Technique: good. The X-rays were independently viewed by me and interpreted by the radiologist. PROGRESS AND PROCEDURES Course of Care: Heplock Ativan 0.5 mg IV Dilaudid 0.5 mg IV. Patient/family counseled. Disposition: Discharged. Condition: stable. CLINICAL IMPRESSION Contusion to the right shoulder and left shoulder and left upper arm. (mid and lower back,). Fall on same level by slipping. INSTRUCTIONS Apply ice for 15-20 minutes three times a day for one days followed by moist heat three times a day for three days until better. You may walk and bear weight as tolerated. Warnings: SEDATIVE MEDICATION: You were given sedative medication during your visit. Do not drive or operate dangerous machinery. GENERAL WARNINGS: Return or contact your physician immediately if your condition worsens or changes unexpectedly, if not improving as expected, or if other problems arise. Prescription Medications: Hydrocodone/APAP 5mg/325mg: take 1 to 2 orally every 6 hours as needed for pain. Dispense fifteen (15). No refills. Robaxin 750 mg: Take 2 orally every 6 hours as needed for muscle spasm. Dispense thirty (30). No refills. Substitution is permissible. Follow-up: Follow up with your doctor in one week. Call for an appointment. Understanding of the discharge instructions verbalized by patient. (Electronically signed by Ethan Hsu MD 07/07/2016 14:50) Addenda pat GISSELLE WILSON VisitID: [id number] Date: 07/01/2016 07/03/2016 16:18 positive UA, reviewed by Gloria Vieira PA-C. Per provider, RX for cipro 500mg BID x5 days. Pt notified of UTI and need for antibiotics. Pt verbalizes understanding. RX called into [facility] per patient's preference and left VM on confidential pharmacy line. (Electronically signed by Wendy Frye R.N. - 07/03/2016 16:18) 07/04/2016 9:20 Called phone number and checked to see if RX was picked up that was called in yesterday. Per caregiver, RX has not been picked up. Caregiver will supervisor picking crew RX today that was called in by charge yesterday to [facility]. Gave caregiver ED phone number for any questions or concerns. (Electronically signed by Michael Mejia R.N. - 07/04/2016 9:20) 07/04/2016 10:39 Caregiver called back, no RX was called in. Called in to [facility], spoke with pharmacist Michael, Cipro 500mg BID for 5 days was called in. (Electronically signed by Michael Mejia R.N. - 07/04/2016 10:39) 07/04/2016 11:08 Pharmacy called, stated patient may have potiental allergy to Cipro, called patient and she confirmed that she does not have an allergy to Cipro. Pharmacy aware and will fill RX. (Electronically signed by Michael Mejia R.N. - 07/04/2016 11:08)
--- NOTE | 2016-07-07 14:50 | ED MED RECONCILIATION SUMMARY ---
Patient: GISSELLE WILSON Medication Reconciliation Report [facility] VisitID: [id number] [address] [place] [address] 71y, F Registration Date/Time: 07/01/2016 Weight: 90.7 kg Height/Length: 66 in. BMI: 32.3 ALLERGIES: morphine, Penicillin, Sulfa Antibiotics The patient's Home Medications are listed below: THE FOLLOWING MEDICATIONS NEED TO BE RECONCILED: Atorvastatin 80mg x1 tab daily Combigan Ophthalmic Hydrochlorothiazide Oral 25 mg, daily Lantanoprost Patricia 0.005% Lantus Subcutaneous 85 units, every AM Lisinopril Oral 40 mg, daily Methazolamide Oral (25 mg) 1 tablet, x2 daily Paroxetine 40mg x2 tabs daily Pramipexole 0.25mg x1 tab at bedtime Ranitidine HCl Oral 150 mg, 2x a day RisperiDONE Oral (0.5 mg) 1 tablet, 2x a day Timolol Mal Patricia 0.5% OP - 1 gtt x2 daily TraZODone HCl Oral 50 mg, 1 1/2 tab, at bedtime Xarelto Oral (15 mg) 1 tablet, daily The source(s) of the original Home Medication information: patient The following Medications were given to the patient in the Emergency Department: Dilaudid [IVP] IVP 0.5 mg, administered: 07/01/2016 3:30:00 PM Ativan [IVP] IVP 0.5 mg, administered: 07/01/2016 3:32:00 PM The following Medications were prescribed to the patient: Hydrocodone/APAP 5mg/325mg: take 1 to 2 orally every 6 hours as needed for pain. Dispense fifteen (15). No refills. -- Ethan Hsu MD Robaxin 750 mg: Take 2 orally every 6 hours as needed for muscle spasm. Dispense thirty (30). No refills. Substitution is permissible. -- Ethan Hsu MD
--- NOTE | 2016-07-07 14:50 | ED DISCHARGE INSTRUCTIONS ---
Patient: GISSELLE WILSON General Instructions [facility] VisitID: [id number] [place] [address] 71y, F Registration Date/Time: 07/01/2016 Contusion to the right shoulder and left shoulder and left upper arm. (mid and lower back,). Fall on same level by slipping. INSTRUCTIONS Apply ice for 15-20 minutes three times a day for one days followed by moist heat three times a day for three days until better. You may walk and bear weight as tolerated. Warnings: SEDATIVE MEDICATION: You were given sedative medication during your visit. Do not drive or operate dangerous machinery. GENERAL WARNINGS: Return or contact your physician immediately if your condition worsens or changes unexpectedly, if not improving as expected, or if other problems arise. Prescription Medications: Hydrocodone/APAP 5mg/325mg: take 1 to 2 orally every 6 hours as needed for pain. Dispense fifteen (15). No refills. Robaxin 750 mg: Take 2 orally every 6 hours as needed for muscle spasm. Dispense thirty (30). No refills. Substitution is permissible. Follow-up: Follow up with your doctor in one week. Call for an appointment. Understanding of the discharge instructions verbalized by patient. ADDITIONAL INFORMATION Mechanical Fall You have had a fall today. It appears that the cause is mechanical. That means that you slipped, tripped or lost your balance. If your fall had been due to fainting or a seizure, further tests would be required. Home Care: Rest today and resume your normal activities when you are feeling back to normal. If you were injured during the fall, follow the advice from your doctor regarding care of your injury. You may use acetaminophen (Tylenol) or ibuprofen (Motrin, Advil) to control pain, unless another pain medicine was prescribed. [NOTE: If you have chronic liver or kidney disease or ever had a stomach ulcer or GI bleeding, talk with your doctor before using these medicines.] Fall Prevention: Was there anything that caused your fall that can be fixed, removed, or replaced? Make your home safe by keeping walkways clear of objects you may trip over. Use non-slip pads under rugs. Do not walk in poorly lit areas. Do not stand on chairs or wobbly ladders. Use caution when reaching overhead or looking upward. This position can cause a loss of balance. Be sure your shoes fit properly, have non-slip bottoms and are in good condition. Be cautious when going up and down curbs, and walking on uneven sidewalks. If your balance is poor, consider using a cane or walker. Stay as active as you can. Balance, flexibility, strength, and endurance all come from exercise. They all play a role in preventing falls. Follow Up with your doctor or as advised by our staff. Get Prompt Medical Attention if any of the following occur: Repeated mechanical falls, or unexplained falls Dizziness, fainting or seizure Severe headache Chest pain or shortness of breath Palpitations (very rapid or very slow or irregular heartbeat) Blood in vomit, stools (black or red color) Weakness of an arm or leg or one side of the face Difficulty with speech or vision Contusion,Soft Tissue You have a CONTUSION, which is a bruise with swelling and some bleeding under the skin. There are no broken bones. This injury takes a few days to a few weeks to heal. Home Care: 1) Keep the injured part elevated to reduce pain and swelling. This is especially important during the first 48 hours. 2) Make an ice pack (ice cubes in a plastic bag, wrapped in a towel) and apply for 20 minutes every 1-2 hours the first day. Continue this 3-4 times a day until the pain and swelling goes away. 3) You may use acetaminophen (Tylenol) or ibuprofen (Motrin, Advil) to control pain, unless another pain medicine was prescribed. [ NOTE : If you have chronic liver or kidney disease or ever had a stomach ulcer or GI bleeding, talk with your doctor before using these medicines.] Follow Up with your doctor or this facility if you are not improving within the next THREE days. [NOTE: If X-rays were taken, they will be reviewed by a radiologist. You will be notified of any new findings that may affect your care.] Get Prompt Medical Attention if any of the following occur: -- Pain or swelling increases -- Injured arm or leg becomes cold, blue, numb or tingly -- Redness, warmth or drainage from the skin You have been given the following additional information: Fall, Mechanical Contusion, Soft Tissue You may walk and bear weight as tolerated. (Electronically signed by Ethan Hsu MD 07/07/2016 14:50)
--- NOTE | 2016-07-07 14:50 | ED MAR SUMMARY ---
..... Medication Administration Record [facility] [address] [place] [address] Patient: GISSELLE WILSON Visit ID: [id number] 71y, F Weight: 90.7 kg Height/Length: 66 in BMI: 32.3 ALLERGIES: morphine, Penicillin, Sulfa Antibiotics Given 15:30 07/01/2016 Rola Butt R.N. Medication Administered: DILAUDID [IVP] (HYDROMORPHONE HCL PF), Dose: 0.5 mg IVP over 1 minute(s), Site: #1 right AC. Medication Ordered: Dilaudid IV 0.5 mg (NOW). Given 15:32 07/01/2016 Rola Butt R.N. Medication Administered: ATIVAN [IVP] (LORAZEPAM), Dose: 0.5 mg IVP over 1 minute(s), Site: #1 right AC. Medication Ordered: Ativan IV 0.5 mg (NOW).
--- NOTE | 2016-07-07 14:50 | ED MAR SUMMARY ---
..... Medication Administration Record [facility] [address] [place] [address] Patient: GISSELLE WILSON Visit ID: [id number] 71y, F Weight: 90.7 kg Height/Length: 66 in BMI: 32.3 ALLERGIES: morphine, Penicillin, Sulfa Antibiotics Given 15:30 07/01/2016 Rola Butt R.N. Medication Administered: DILAUDID [IVP] (HYDROMORPHONE HCL PF), Dose: 0.5 mg IVP over 1 minute(s), Site: #1 right AC. Medication Ordered: Dilaudid IV 0.5 mg (NOW). Given 15:32 07/01/2016 Rola Butt R.N. Medication Administered: ATIVAN [IVP] (LORAZEPAM), Dose: 0.5 mg IVP over 1 minute(s), Site: #1 right AC. Medication Ordered: Ativan IV 0.5 mg (NOW).
--- NOTE | 2016-07-07 14:50 | ED MED RECONCILIATION SUMMARY ---
Patient: GISSELLE WILSON Medication Reconciliation Report [facility] VisitID: [id number] [address] [place] [address] 71y, F Registration Date/Time: 07/01/2016 Weight: 90.7 kg Height/Length: 66 in. BMI: 32.3 ALLERGIES: morphine, Penicillin, Sulfa Antibiotics The patient's Home Medications are listed below: THE FOLLOWING MEDICATIONS NEED TO BE RECONCILED: Atorvastatin 80mg x1 tab daily Combigan Ophthalmic Hydrochlorothiazide Oral 25 mg, daily Lantanoprost Patricia 0.005% Lantus Subcutaneous 85 units, every AM Lisinopril Oral 40 mg, daily Methazolamide Oral (25 mg) 1 tablet, x2 daily Paroxetine 40mg x2 tabs daily Pramipexole 0.25mg x1 tab at bedtime Ranitidine HCl Oral 150 mg, 2x a day RisperiDONE Oral (0.5 mg) 1 tablet, 2x a day Timolol Mal Patricia 0.5% OP - 1 gtt x2 daily TraZODone HCl Oral 50 mg, 1 1/2 tab, at bedtime Xarelto Oral (15 mg) 1 tablet, daily The source(s) of the original Home Medication information: patient The following Medications were given to the patient in the Emergency Department: Dilaudid [IVP] IVP 0.5 mg, administered: 07/01/2016 3:30:00 PM Ativan [IVP] IVP 0.5 mg, administered: 07/01/2016 3:32:00 PM The following Medications were prescribed to the patient: Hydrocodone/APAP 5mg/325mg: take 1 to 2 orally every 6 hours as needed for pain. Dispense fifteen (15). No refills. -- Ethan Hsu MD Robaxin 750 mg: Take 2 orally every 6 hours as needed for muscle spasm. Dispense thirty (30). No refills. Substitution is permissible. -- Ethan Hsu MD
== END 2016-07-01 18:20 | disposition home or self-care (01) ==
LOC: ED SRH 11:28
DX: S40.011A Contusion of right shoulder, initial encounter (principal); S40.012A Contusion of left shoulder, initial encounter; S40.022A Contusion of left upper arm, initial encounter; S30.0XXA Contusion of lower back and pelvis, initial encounter; S20.229A Contusion of unspecified back wall of thorax, initial encounter; W01.0XXA Fall on same level from slipping, tripping and stumbling without subsequent striking against object, initial encounter; Y93.9 Activity, unspecified; Y92.009 Unspecified place in unspecified non-institutional (private) residence as the place of occurrence of the external cause; Y99.9 Unspecified external cause status

== ENCOUNTER 2016-07-18 09:25 | Emergency (ER) | payer OTHER ==
--- NOTE | 2016-07-18 10:13 | DIAGNOSTIC IMAGING REPORT ---
PROCEDURE: XR CHEST 1 VIEW INDICATION: WEAKNESS TECHNIQUE: Single view chest. 09:59 hours COMPARISON: 05/26/2016 and 03/23/2016 FINDINGS: The cardiopulmonary contour and central vasculature are stable, within normal limits. The lungs are clear without focal consolidation, pleural effusion or pneumothorax. The osseous structures are intact. IMPRESSION: 1. No evidence of acute cardiopulmonary disease.
--- NOTE | 2016-07-18 10:49 | ED CLINICAL REPORT ---
Clinical Report - Physicians/Mid Levels [facility] [address] [place] [address] 07/18/2016 9:29 Patient: GISSELLE WILSON Time Seen: 09:45. Arrived- By private vehicle. Historian- patient. HISTORY OF PRESENT ILLNESS Chief Complaint: WEAKNESS. This started today and is still present. It was abrupt in onset. The patient has had a dull headache ("on the top"). She has had visual disturbance (she is legally blind). She has had fatigue and generalized weakness. She has had a sleep problem ("I tossed and turned last night"). (while reviewing the patient's history with her. She became tearful. When I asked her what is bothering her, she says that she is generally depressed. She denies suicidal or homicidal ideation.). REVIEW OF SYSTEMS No chills, fever, sweats, calf pain or chest pain. No cough, difficulty breathing, pedal edema, palpitations or abdominal pain. No constipation, diarrhea, nausea, vomiting or urinary problems. The patient has had depression (chronically). She has had trouble sleeping but not had suicidal ideation or a suicidal plan. This has been similar to previous episodes. All systems otherwise negative, except as recorded above. PAST HISTORY PCP - Mazin. Problems: Benign Positional Vertigo. Weakness. Hypertension. Hypoxia. Influenza. Hypoglycemia. MRSA Infection. Dyspnea. UTI - Urinary Tract Infection. DVT - Deep Venous Thrombosis. Renal Insufficiency. Bronchitis. Blindness. Wound Infection. TIA - Transient Ischemic Attack. Concussion. Abrasion(s). Fall. Colon Cancer. Vomiting. Abdominal Pain. LNMP - Last Normal Menstrual Period. Myofascial Strain. Contusion. Anxiety Reaction. Arthritis. Back Pain. Coronary Artery Disease. Cataracts. CVA - Cerebrovascular Accident. Depression. Diabetes Mellitus. Hyperlipidemia. Peripheral Vascular Disease. Gastroesophageal Reflux Disease. Additional Surgeries: Abdominal Aortic Aneurysm Repair. Appendectomy. Colostomy. Colostomy takedown . Tonsillectomy. Medications: Atorvastatin 80mg x1 tab daily. Combigan Ophthalmic. Hydrochlorothiazide Oral 25 mg, daily. Lantanoprost Patricia 0.005% . Lantus Subcutaneous 85 units, every AM. Lisinopril Oral 40 mg, daily. Methazolamide Oral (Tablet 25 mg) 1 tablet, x2 daily. Paroxetine 40mg x2 tabs daily. Pramipexole 0.25mg x1 tab at bedtime. Ranitidine HCl Oral 150 mg, 2x a day. RisperiDONE Oral (Tablet Dispersible 0.5 mg) 1 tablet, 2x a day. Timolol Mal Patricia 0.5% OP - 1 gtt x2 daily. TraZODone HCl Oral 50 mg, 1 1/2 tab, at bedtime. Xarelto Oral (Tablet 15 mg) 1 tablet, daily. Allergies: morphine. Penicillin. Sulfa Antibiotics. SOCIAL HISTORY Former smoker, end date 2006. History of occasional drug use: marijuana. No alcohol use. FAMILY HISTORY Cancer in first-degree relative (mother and father). grandmother due to TB. ADDITIONAL NOTES The nursing notes have been reviewed. PHYSICAL EXAM Vital Signs: 07/18/2016 09:32 BP: 155/56. HR: 68. RR: 16. O2 saturation: 100%. Temp: 97.9 F. Have been reviewed. Appearance: Alert. Eyes: Pupils equal, round and reactive to light. ENT: Pharynx normal. Neck: Normal inspection. Neck supple. CVS: Normal heart rate and rhythm. Heart sounds normal. Pulses normal. Respiratory: No respiratory distress. Breath sounds normal. Abdomen: No visible injury. Soft and nontender. Bowel sounds normal. No organomegaly. No mass. Obese. Back: Normal inspection. Skin: Skin warm and dry. Normal skin color. Normal skin turgor. Extremities: Extremities exhibit normal ROM. No calf tenderness. No lower extremity edema. LABS, X-RAYS, AND EKG EKG: Rate: 57. The study has been independently viewed by me. (no significant changes when compared with the study of 26 May 2016). Chest X-ray: (IMPRESSION: 1. No evidence of acute cardiopulmonary disease.). The X-rays were interpreted by the radiologist and contemporaneously by me. Laboratory Tests: UA-Culture if indicated: (NEREIDA: 07/18/2016 09:40) ( MsgRcvd 07/18/2016 10:08) Final results Test Result Flag Units (Reference) URINE COLOR YELLOW URINE APPEARANCE SL CLOUDY URINE GLUCOSE NEGATIVE (NEGATIVE) URINE BILIRUBIN NEGATIVE (NEGATIVE) URINE KETONE NEGATIVE (NEGATIVE) URINE SPECIFIC GRAVITY 1.020 (1.010-1.030) URINE PH 5.5 (5.0-8.0) URINE PROTEIN NEGATIVE (NEGATIVE) URINE UROBILINOGEN 0.2 EU/dL (0.2-1.0) URINE NITRITE NEGATIVE (NEGATIVE) URINE BLOOD NEGATIVE (NEGATIVE) URINE LEUK ESTERASE NEGATIVE (NEGATIVE) URINE RBC NONE SEEN rbc/hpf (0-1) URINE WBC NONE SEEN wbc/hpf (0-1) URINE EPITHELIAL CELLS 0-1 EPI/hpf (0-5) URINE BACTERIA NONE SEEN (NONE SEEN) URINE COMMENT CULT NOT INDICATED 1+ YEASTURINE CULTURES ARE SET-UP BASED ON THE FOLLOWING CRITERIA:POSITIVE NITRITEPOSITIVE LEUKOCYTE ESTERASEGREATER THAN 10 WHITE BLOOD CELLSMODERATE (2+) OR GREATER BACTERIA CBC w Diff: (NEREIDA: 07/18/2016 09:40) ( [facility] 07/18/2016 09:56) Final results Test Result Flag Units (Reference) WHITE BLOOD COUNT 7.4 K/uL (4.5-11.5) RED BLOOD COUNT 4.54 M/uL (4.00-5.20) HEMOGLOBIN 12.7 gm/dL (12.0-16.0) HEMATOCRIT 37.3 % (36.0-46.0) MEAN CELL VOLUME 82 fL (80-100) MEAN CORPUSCULAR HGB 28 pg (26-34) MEAN CORPUSCULAR HGB CONC 34 g/dL (31-37) RED CELL DISTRIBUTION WIDTH 13.3 % (11.6-14.8) PLATELET COUNT 117 L K/uL (150-400) NEUTROPHIL % 76.3 H % (50-75) LYMPH % 15.2 L % (25-40) MONO % 6.2 % (3-14) EOSINOPHIL % 1.5 % (0-4) BASOPHIL % 0.8 % (0-2) Urine Drug Screen: (NEREIDA: 07/18/2016 09:40) ( [facility] 07/18/2016 10:22) Final results Test Result Flag Units (Reference) AMPHETAMINE/METHAMPHETAMINE NEGATIVE (NEGATIVE) BARBITURATE NEGATIVE (NEGATIVE) BENZODIAZEPINE POSITIVE H (NEGATIVE) CANNABINOID POSITIVE H (NEGATIVE) COCAINE NEGATIVE (NEGATIVE) ECSTASY NEGATIVE (NEGATIVE) METHADONE NEGATIVE (NEGATIVE) OPIATE NEGATIVE (NEGATIVE) The urine drug screen is a qualitative screening test fordrug overdose and abuse. All screen results should beconsidered as presumptive.Drugs screened for are as follows:BenzodiazepinesCocaineAmphetamines/MetamphetaminesTHC (Tetrahydrocannabinol)OpiatesBarbituratesEcstasyMethadonePositive results are unconfirmed. For confirmation, notifythe lab for the specimen to be sent to the reference lab.All confirmations must be performed by a differentmethodology.The ingestion of natural herbal and plant productscontaining Ephedra/Ephedra metabolites can produce in urineone or more substances capable of cross reacting withamphetamine/methamphetamine immunoassays. These testsprovide a preliminary result only. A more specificalternative chemical method must be used to obtain aconfirmed analytical result. BNP: (NEREIDA: 07/18/2016 09:40) ( MsgRcvd 07/18/2016 10:17) Final results Test Result Flag Units (Reference) B-TYPE NATRIURETIC PEPTIDE 9.2 pg/ml (5-100) CMP: (NEREIDA: 07/18/2016 09:40) ( MsgRcvd 07/18/2016 10:08) Final results Test Result Flag Units (Reference) GLUCOSE 198 H mg/dL (70-110) BUN 39 H mg/dL (7-18) CREATININE 1.8 H mg/dL (0.6-1.3) Estimated GFR 29.65 mL/min Estimated GFR- 35.94 mL/min Note: Persistent reduction over 3 months in eGFR<60 mL/min/1.73 m2 defines CKD. Patients with eGFR values>=60 mL/min/1.73 m2 may also have CKD if evidence ofpersistent proteinuria. Additional information may be foundat www.kidney.org. SODIUM 140 mmol/L (136-145) POTASSIUM 5.2 H mmol/L (3.5-5.1) CHLORIDE 104 mmol/L (98-107) CARBON DIOXIDE 25 mmol/L (21-32) CALCIUM 8.6 mg/dL (8.5-10.1) TOTAL PROTEIN 7.1 g/dL (6.4-8.2) ALBUMIN 3.1 L g/dL (3.3-5.0) BILIRUBIN, TOTAL 0.2 mg/dL (0.0-1.0) ALKALINE PHOSPHATASE 69 U/L (46-116) AST (SGOT) 12 L U/L (15-37) ALT (SGPT) 16 U/L (12-78) LIPASE 137 U/L (73-393) AMYLASE 76 U/L (25-115) CPK 42 U/L (24-260) TROPONIN I <0.05 ng/mL (0.00-1.5) TROPONIN REFERENCE RANGE:<0.1 NEGATIVE0.1-1.5 INDETERMINANT>1.5 POSITIVE . PROGRESS AND PROCEDURES Course of Care: Patient is stable. Patient/family counseled. Old medical records reviewed. Disposition: Discharged. Condition: stable. CLINICAL IMPRESSION Generalized weakness. Depression. INSTRUCTIONS (Consider stopping the use of marijuana. This may be affecting your mood.). Warnings: Further evaluation is necessary. GENERAL WARNINGS: Return or contact your physician immediately if your condition worsens or changes unexpectedly, if not improving as expected, or if other problems arise. Your Current Medications: CONTINUE TAKING THE FOLLOWING MEDICATIONS: Atorvastatin 80mg x1 tab daily*. Combigan Ophthalmic. Hydrochlorothiazide Oral : 25 mg daily. Lantanoprost Patricia 0.005% *. Lantus Subcutaneous : 85 units every AM. Lisinopril Oral : 40 mg daily. Methazolamide Oral : Tablet 25 mg, 1 tablet x2 daily. Paroxetine 40mg x2 tabs daily*. Pramipexole 0.25mg x1 tab at bedtime*. Ranitidine HCl Oral : 150 mg 2x a day. RisperiDONE Oral : Tablet Dispersible 0.5 mg, 1 tablet 2x a day. Timolol Mal Patricia 0.5% OP - 1 gtt x2 daily*. TraZODone HCl Oral : 50 mg, 1 1/2 tab at bedtime. Xarelto Oral : Tablet 15 mg, 1 tablet daily. Understanding of the discharge instructions verbalized by patient. Follow-up with: Shravan Retana MD, Family Practice, , [facility], [address] [place] [address] Follow up as scheduled. (Electronically signed by Nimesh Brambila MD 07/20/2016 3:41)
--- NOTE | 2016-07-18 10:50 | ED ORDER SUMMARY ---
..... Patient: GISSELLE WILSON OrderSheet [facility] VisitID: [id number] [address] [place] [address] 71y, F Registration Date/Time: 07/18/2016 ORDER SHEET Weight: 90.7 kg (stated) Allergies: morphine, Penicillin, Sulfa Antibiotics GENERAL ORDERS: Chest 1V Urgent (09:45 07/18/2016 Melissa CRUZ) (Ack 9:48 Roxanne) (10:59 MWinterer R.N.) Gospel Worker (Continuous) (09:45 07/18/2016 Melissa CRUZ) (9:47 SReitz R.N.) CBC w Diff Urgent (09:46 07/18/2016 Melissa CRUZ) (Ack 9:48 Roxanne) (10:59 MWinterer R.N.) CMP Urgent (09:46 07/18/2016 Melissa CRUZ) (Ack 9:48 Roxanne) (10:59 MWinterer R.N.) UA-Culture if indicated Urgent (09:46 07/18/2016 Melissa CRUZ) (Ack 9:48 Roxanne) (10:59 MWinterer R.N.) Amylase Urgent (09:46 07/18/2016 Melissa CRUZ) (Ack 9:48 Roxanne) (10:59 MWinterer R.N.) Lipase Urgent (09:46 07/18/2016 Melissa CRUZ) (Ack 9:48 Roxanne) (10:59 MWinterer R.N.) Urine Drug Screen Urgent (09:46 07/18/2016 Melissa CRUZ) (Ack 9:48 Roxanne) (10:59 MWinterer R.N.) CPK Urgent (09:46 07/18/2016 Melissa CRUZ) (Ack 9:48 Roxanne) (10:59 MWinterer R.N.) Troponin-I Urgent (09:46 07/18/2016 Melissa CRUZ) (Ack 9:48 Roxanne) (10:59 MWinterer R.N.) BNP Urgent (09:46 07/18/2016 Melissa CRUZ) (Ack 9:48 KHoerner) (10:59 MWinterer R.N.) Oxygen (2 L/min) (NC) (09:46 07/18/2016 Melissa CRUZ) (9:47 SRegautam R.N.) Pulse oximeter (:07/18/2016 Melissa CRUZ) (9:47 Kristin R.N.) EKG - ER Stat (09:07/18/2016 Melissa CRUZ) (Ack 9:58 KHoerner) (10:30 KHoerner) Vitals - Orthostatic (:07/18/2016 Melissa CRUZ) (10:59 MWinterer R.N.) MEDICATION ORDERS: IV FLUIDS: IV Saline Lock (:07/18/2016 Melissa CRUZ) (Ack 10:25 JBoardley R.N.) (11:02 JBoardley R.N.) ORDER SHEET NOTES: [Electronically signed by Michael Mejia R.N. (12:41 07/18/2016)] [Electronically signed by Nimesh Brambila MD (03:40 07/20/2016)] [Electronically locked/signed by Michael Mejia R.N. (12:41 07/18/2016)]
--- NOTE | 2016-07-18 10:50 | ED NURSING NOTES ---
Clinical Report - Nurses [facility] [address] [place] [address] 07/18/2016 9:29 Patient: GISSELLE WILSON TRIAGE Triage time 09:32. Acuity: LEVEL 3. Chief Complaint: WEAKNESS ("not acting right" and "more confused"). Alert. No acute distress. SEPSIS SCREEN: Sepsis Screen. Negative (no infection suspected/documented). DEANDRA COMA SCORE: Aniwa Coma Scale: 15- eyes open spontaneously (4); best verbal response- oriented x 4 (5); best motor response- obeys commands (6). --09:37 Kailey Mc R.N. 09:32 07/18/16. BP: 155/56. HR: 68. RR: 16. O2 saturation: 100%. Temp: 97.9 F. Pain level now 0/10. --09:37 Kailey Mc R.N. ( Pt. recently being treated for a UTI and finished her rx of antibiotics.). --09:39 Kailey Mc R.N. Weight: 90.7 kg stated. Height/Length: 66 inches Per Patient. BMI: 32.3. --09:33 Kailey Mc R.N. Medications Atorvastatin 80mg x1 tab daily. Combigan Ophthalmic. Hydrochlorothiazide Oral 25 mg, daily. Lantanoprost Patricia 0.005% . Lantus Subcutaneous 85 units, every AM. Lisinopril Oral 40 mg, daily. Methazolamide Oral (Tablet 25 mg) 1 tablet, x2 daily. Paroxetine 40mg x2 tabs daily. Pramipexole 0.25mg x1 tab at bedtime. Ranitidine HCl Oral 150 mg, 2x a day. RisperiDONE Oral (Tablet Dispersible 0.5 mg) 1 tablet, 2x a day. Timolol Mal Patricia 0.5% OP - 1 gtt x2 daily. TraZODone HCl Oral 50 mg, 1 1/2 tab, at bedtime. Xarelto Oral (Tablet 15 mg) 1 tablet, daily. --09:34 Alexandro, Kailey, R.N. Allergies morphine. Penicillin. Sulfa Antibiotics. --09:34 Kailey Mc R.N. History Arrived by EMS. Historian: patient. Unaccompanied. Primary physician (Dr. Retana). This started today. Treatment MELTER LOADER: None. PAST MEDICAL HX: Immunizations: up-to-date. SOCIAL HX: Never smoker. History of heavy drug use: marijuana. No alcohol use. No infectious disease exposure. ABUSE ASSESSMENT: Abuse assessment: The patient was asked "Do you feel safe in your home?" and "Has anyone hurt you or threatened to hurt you?". No report of abuse. NUTRITIONAL RISK ASSESSMENT: The nutritional risk assessment revealed no deficiencies. FUNCTIONAL ASSESSMENT: Functional assessment: no impairments noted. Functional assessment performed: requires assistance with the activities of daily living; uses cane; has poor vision in both eyes. LEARNING NEEDS ASSESSMENT: The learning needs assessment revealed no barriers. --09:37 Kailey Mc R.N. PROBLEMS: Benign Positional Vertigo. Weakness. Hypertension. Hypoxia. Influenza. Hypoglycemia. MRSA Infection. Dyspnea. UTI - Urinary Tract Infection. DVT - Deep Venous Thrombosis. Renal Insufficiency. Bronchitis. Blindness. Wound Infection. TIA - Transient Ischemic Attack. Concussion. Abrasion(s). Fall. Colon Cancer. Vomiting. Abdominal Pain. Myofascial Strain. Contusion. Anxiety Reaction. Arthritis. Back Pain. Coronary Artery Disease. Cataracts. CVA - Cerebrovascular Accident. Depression. Diabetes Mellitus. Hyperlipidemia. Peripheral Vascular Disease. Gastroesophageal Reflux Disease. --09:35 Kailey Mc R.N. ADDITIONAL SURGERIES: Abdominal Aortic Aneurysm Repair. Appendectomy. Colostomy. Colostomy takedown . Tonsillectomy. --09:35 Kailey Mc R.N. Interventions ID band on patient. Transported via stretcher. --09:37 Kailey Mc R.N. PHYSICAL ASSESSMENT 09:30. To room via stretcher. GENERAL / NEURO / PSYCH: Alert. Oriented X 4. Appears in no acute distress. HEENT: No facial asymmetry noted. Mucous membranes are pink. RESPIRATORY: Respirations not labored. CVS: Capillary refill less than 2 seconds. Pulses within normal limits. GI / : Abdomen soft and nontender. SKIN: Skin intact. Skin is warm and dry. --09:38 Kailey Mc R.N. NURSING PROGRESS NOTES emergency room physician, pulse oximeter and NIBP monitor placed on patient; cardiac cath lab radiology technologist- Lead II; monitor alarms on. Patient gowned. Head of bed elevated. Two patient identifiers checked. Call light placed in reach. Side rails up x 2. Bed placed in lowest position. Brakes of bed on. Patient ready for evaluation- chart flagged. --09:38 Kailey Mc R.N. Patient ID band checked for patient name, birthdate and medical record number: patient confirmed. Instructions provided to collect clean catch urine and patient verbalized understanding. Catheterized urine collected with return of yellow-colored clear urine; sample sent to lab for urinalysis. Specimen labeled in the presence of the patient. --09:38 Kailey Mc R.N. 09:50 07/18/2016 Site #1 started via IV in the right with an 20g angiocath, with aseptic technique and good blood return; one attempt. Blood drawn: rainbow set. Labeled in the presence of the patient. Saline lock flushed with 10 mL saline (By Kailey RN). --11:02 Michael Mejia R.N. 10:47 07/18/16. BP: 122/38 (large adult cuff) taken on the left arm, via an automated monitor, while lying. HR: 52. RR: 17. --11:22 Breanna Sullivan 10:53 07/18/16. BP: 127/57 (large adult cuff) taken on the left arm, via an automated monitor, while sitting. HR: 18. --11:23 Breanna Sullivan 10:59 07/18/16. BP: 102/67 (large adult cuff) taken on the left arm, while standing. HR: 72. RR: 18. --11:24 Breanna Sullivan EKG time: (10:15 AM). EKG was performed by a tech and shown to the ED physician. --11:29 Breanna Sullivan. DISPOSITION / DISCHARGE 12:14 07/18/2016 Site #1 removed upon discharge. Catheter intact. --12:39 Michael Mejia R.N. late entry -11:00. Condition at departure: improved. The goals identified in the patient's plan of care were met. No learning barriers present. Discharge instructions provided and reviewed with the patient. Reviewed warnings. Reviewed medication(s). Treatments reviewed. Patient verbalized understanding. Written instructions provided in Faroese. The patient was discharged by the physician. She was discharged home and accompanied by family. She left the Emergency Department ambulatory and via private vehicle. Family member driving. FALL RISK ASSESSMENT: Fall risk assessment completed. No fall risk identified. --12:41 Michael Mejia R.N. 11:00 07/18/16. BP: 110/71. HR: 81. RR: 14. O2 saturation: 99% on room air. Temp: 98 F (oral). Pain level now: 0/10. --12:41 Michael Mejia R.N. Departure time: 1100. --12:41 Michael Mejia R.N. Locked/Released at 07/18/2016 12:41 by Michael Mejia R.N.
--- NOTE | 2016-07-18 10:50 | ED ORDER SUMMARY ---
..... Patient: GISSELLE WILSON OrderSheet [facility] VisitID: [id number] [address] [place] [address] 71y, F Registration Date/Time: 07/18/2016 ORDER SHEET Weight: 90.7 kg (stated) Allergies: morphine, Penicillin, Sulfa Antibiotics GENERAL ORDERS: Chest 1V Urgent (09:45 07/18/2016 Melissa CRUZ) (Ack 9:48 Roxanne) (10:59 MWinterer R.N.) Geothermal Field Technician (Continuous) (09:45 07/18/2016 Melissa CRUZ) (9:47 SReitz R.N.) CBC w Diff Urgent (09:46 07/18/2016 Melissa CRUZ) (Ack 9:48 Roxanne) (10:59 MWinterer R.N.) CMP Urgent (09:46 07/18/2016 Melissa CRUZ) (Ack 9:48 Roxanne) (10:59 MWinterer R.N.) UA-Culture if indicated Urgent (09:46 07/18/2016 Melissa CRUZ) (Ack 9:48 Roxanne) (10:59 MWinterer R.N.) Amylase Urgent (09:46 07/18/2016 Melissa CRUZ) (Ack 9:48 Roxanne) (10:59 MWinterer R.N.) Lipase Urgent (09:46 07/18/2016 Melissa CRUZ) (Ack 9:48 Roxanne) (10:59 MWinterer R.N.) Urine Drug Screen Urgent (09:46 07/18/2016 Melissa CRUZ) (Ack 9:48 Roxanne) (10:59 MWinterer R.N.) CPK Urgent (09:46 07/18/2016 Melissa CRUZ) (Ack 9:48 Roxanne) (10:59 MWinterer R.N.) Troponin-I Urgent (09:46 07/18/2016 Melissa CRUZ) (Ack 9:48 Roxanne) (10:59 MWinterer R.N.) BNP Urgent (09:46 07/18/2016 Melissa CRUZ) (Ack 9:48 KHoerner) (10:59 MWinterer R.N.) Oxygen (2 L/min) (NC) (09:46 07/18/2016 Melissa CRUZ) (9:47 SRegautam R.N.) Pulse oximeter (:07/18/2016 Melissa CRUZ) (9:47 Kristin R.N.) EKG - ER Stat (09:07/18/2016 Melissa CRUZ) (Ack 9:58 KHoerner) (10:30 KHoerner) Vitals - Orthostatic (:07/18/2016 Melissa CRUZ) (10:59 MWinterer R.N.) MEDICATION ORDERS: IV FLUIDS: IV Saline Lock (:07/18/2016 Melissa CRUZ) (Ack 10:25 JBoardley R.N.) (11:02 JBoardley R.N.) ORDER SHEET NOTES: [Electronically signed by Michael Mejia R.N. (12:41 07/18/2016)] [Electronically signed by Nimesh Brambila MD (03:40 07/20/2016)] [Electronically locked/signed by Michael Mejia R.N. (12:41 07/18/2016)]
--- NOTE | 2016-07-18 10:50 | ED NURSING NOTES ---
Clinical Report - Nurses [facility] [address] [place] [address] 07/18/2016 9:29 Patient: GISSELLE WILSON TRIAGE Triage time 09:32. Acuity: LEVEL 3. Chief Complaint: WEAKNESS ("not acting right" and "more confused"). Alert. No acute distress. SEPSIS SCREEN: Sepsis Screen. Negative (no infection suspected/documented). DEANDRA COMA SCORE: [place] Coma Scale: 15- eyes open spontaneously (4); best verbal response- oriented x 4 (5); best motor response- obeys commands (6). --09:37 Kailey Mc R.N. 09:32 07/18/16. BP: 155/56. HR: 68. RR: 16. O2 saturation: 100%. Temp: 97.9 F. Pain level now 0/10. --09:37 Kailey Mc R.N. ( Pt. recently being treated for a UTI and finished her rx of antibiotics.). --09:39 Kailey Mc R.N. Weight: 90.7 kg stated. Height/Length: 66 inches Per Patient. BMI: 32.3. --09:33 Kailey Mc R.N. Medications Atorvastatin 80mg x1 tab daily. Combigan Ophthalmic. Hydrochlorothiazide Oral 25 mg, daily. Lantanoprost Patricia 0.005% . Lantus Subcutaneous 85 units, every AM. Lisinopril Oral 40 mg, daily. Methazolamide Oral (Tablet 25 mg) 1 tablet, x2 daily. Paroxetine 40mg x2 tabs daily. Pramipexole 0.25mg x1 tab at bedtime. Ranitidine HCl Oral 150 mg, 2x a day. RisperiDONE Oral (Tablet Dispersible 0.5 mg) 1 tablet, 2x a day. Timolol Mal Patricia 0.5% OP - 1 gtt x2 daily. TraZODone HCl Oral 50 mg, 1 1/2 tab, at bedtime. Xarelto Oral (Tablet 15 mg) 1 tablet, daily. --09:34 Alexandro, Kailey, R.N. Allergies morphine. Penicillin. Sulfa Antibiotics. --09:34 Kailey Mc R.N. History Arrived by EMS. Historian: patient. Unaccompanied. Primary physician (Dr. Retana). This started today. Treatment SIGNING AGENT: None. PAST MEDICAL HX: Immunizations: up-to-date. SOCIAL HX: Never smoker. History of heavy drug use: marijuana. No alcohol use. No infectious disease exposure. ABUSE ASSESSMENT: Abuse assessment: The patient was asked "Do you feel safe in your home?" and "Has anyone hurt you or threatened to hurt you?". No report of abuse. NUTRITIONAL RISK ASSESSMENT: The nutritional risk assessment revealed no deficiencies. FUNCTIONAL ASSESSMENT: Functional assessment: no impairments noted. Functional assessment performed: requires assistance with the activities of daily living; uses cane; has poor vision in both eyes. LEARNING NEEDS ASSESSMENT: The learning needs assessment revealed no barriers. --09:37 Kailey Mc R.N. PROBLEMS: Benign Positional Vertigo. Weakness. Hypertension. Hypoxia. Influenza. Hypoglycemia. MRSA Infection. Dyspnea. UTI - Urinary Tract Infection. DVT - Deep Venous Thrombosis. Renal Insufficiency. Bronchitis. Blindness. Wound Infection. TIA - Transient Ischemic Attack. Concussion. Abrasion(s). Fall. Colon Cancer. Vomiting. Abdominal Pain. Myofascial Strain. Contusion. Anxiety Reaction. Arthritis. Back Pain. Coronary Artery Disease. Cataracts. CVA - Cerebrovascular Accident. Depression. Diabetes Mellitus. Hyperlipidemia. Peripheral Vascular Disease. Gastroesophageal Reflux Disease. --09:35 Kailey Mc R.N. ADDITIONAL SURGERIES: Abdominal Aortic Aneurysm Repair. Appendectomy. Colostomy. Colostomy takedown . Tonsillectomy. --09:35 Kailey Mc R.N. Interventions ID band on patient. Transported via stretcher. --09:37 Kailey Mc R.N. PHYSICAL ASSESSMENT 09:30. To room via stretcher. GENERAL / NEURO / PSYCH: Alert. Oriented X 4. Appears in no acute distress. HEENT: No facial asymmetry noted. Mucous membranes are pink. RESPIRATORY: Respirations not labored. CVS: Capillary refill less than 2 seconds. Pulses within normal limits. GI / : Abdomen soft and nontender. SKIN: Skin intact. Skin is warm and dry. --09:38 Kailey Mc R.N. NURSING PROGRESS NOTES monitoring manager, pulse oximeter and NIBP monitor placed on patient; cardiac monitor technician- Lead II; monitor alarms on. Patient gowned. Head of bed elevated. Two patient identifiers checked. Call light placed in reach. Side rails up x 2. Bed placed in lowest position. Brakes of bed on. Patient ready for evaluation- chart flagged. --09:38 Kailey Mc R.N. Patient ID band checked for patient name, birthdate and medical record number: patient confirmed. Instructions provided to collect clean catch urine and patient verbalized understanding. Catheterized urine collected with return of yellow-colored clear urine; sample sent to lab for urinalysis. Specimen labeled in the presence of the patient. --09:38 Kailey Mc R.N. 09:50 07/18/2016 Site #1 started via IV in the right with an 20g angiocath, with aseptic technique and good blood return; one attempt. Blood drawn: rainbow set. Labeled in the presence of the patient. Saline lock flushed with 10 mL saline (By Kailey RN). --11:02 Michael Mejia R.N. 10:47 07/18/16. BP: 122/38 (large adult cuff) taken on the left arm, via an automated monitor, while lying. HR: 52. RR: 17. --11:22 Breanna Sullivan 10:53 07/18/16. BP: 127/57 (large adult cuff) taken on the left arm, via an automated monitor, while sitting. HR: 18. --11:23 Breanna Sullivan 10:59 07/18/16. BP: 102/67 (large adult cuff) taken on the left arm, while standing. HR: 72. RR: 18. --11:24 Breanna Sullivan EKG time: (10:15 AM). EKG was performed by a tech and shown to the ED physician. --11:29 Breanna Sullivan. DISPOSITION / DISCHARGE 12:14 07/18/2016 Site #1 removed upon discharge. Catheter intact. --12:39 Michael Mejia R.N. late entry -11:00. Condition at departure: improved. The goals identified in the patient's plan of care were met. No learning barriers present. Discharge instructions provided and reviewed with the patient. Reviewed warnings. Reviewed medication(s). Treatments reviewed. Patient verbalized understanding. Written instructions provided in [place]. The patient was discharged by the physician. She was discharged home and accompanied by family. She left the Emergency Department ambulatory and via private vehicle. Family member driving. FALL RISK ASSESSMENT: Fall risk assessment completed. No fall risk identified. --12:41 Michael Mejia R.N. 11:00 07/18/16. BP: 110/71. HR: 81. RR: 14. O2 saturation: 99% on room air. Temp: 98 F (oral). Pain level now: 0/10. --12:41 Michael Mejia R.N. Departure time: 1100. --12:41 Michael Mejia R.N. Locked/Released at 07/18/2016 12:41 by Michael Mejia R.N.
--- NOTE | 2016-07-20 03:41 | ED MAR SUMMARY ---
..... Medication Administration Record [facility] [address] [place], [place] [id number] Patient: GISSELLE WILSON Visit ID: [id number] 71y, F Weight: 90.7 kg Height/Length: 66 in BMI: 32.3 ALLERGIES: morphine, Penicillin, Sulfa Antibiotics
--- NOTE | 2016-07-20 03:41 | ED DISCHARGE INSTRUCTIONS ---
Patient: GISSELLE WILSON General Instructions [facility] VisitID: [id number] [address] [id number] 71y, F Registration Date/Time: 07/18/2016 Generalized weakness. Depression. INSTRUCTIONS (Consider stopping the use of marijuana. This may be affecting your mood.). Warnings: Further evaluation is necessary. GENERAL WARNINGS: Return or contact your physician immediately if your condition worsens or changes unexpectedly, if not improving as expected, or if other problems arise. Your Current Medications: CONTINUE TAKING THE FOLLOWING MEDICATIONS: Atorvastatin 80mg x1 tab daily*. Combigan Ophthalmic. Hydrochlorothiazide Oral : 25 mg daily. Lantanoprost Patricia 0.005% *. Lantus Subcutaneous : 85 units every AM. Lisinopril Oral : 40 mg daily. Methazolamide Oral : Tablet 25 mg, 1 tablet x2 daily. Paroxetine 40mg x2 tabs daily*. Pramipexole 0.25mg x1 tab at bedtime*. Ranitidine HCl Oral : 150 mg 2x a day. RisperiDONE Oral : Tablet Dispersible 0.5 mg, 1 tablet 2x a day. Timolol Mal Patricia 0.5% OP - 1 gtt x2 daily*. TraZODone HCl Oral : 50 mg, 1 1/2 tab at bedtime. Xarelto Oral : Tablet 15 mg, 1 tablet daily. Understanding of the discharge instructions verbalized by patient. Follow-up with: Shravan Retana MD, [facility], , [facility], [address] [place] [address] Follow up as scheduled. ADDITIONAL INFORMATION Depression Depression is one of the most common mental health problems today. It is not just a state of unhappiness or sadness. It is a true disease. The cause seems to be related to a decrease in chemicals that transmit signals in the brain. Having a family history of depression, alcoholism or suicide increases the risk. Chronic illness, chronic pain, migraine headaches and high emotional stress also increase the risk. Depression can cause many different symptoms, such as: -- Loss of appetite -- Over-eating -- Not being able to sleep -- Sleeping too much -- Tiredness not related to physical exertion -- Restlessness or irritability -- Slowness of movement or speech -- Feeling depressed or withdrawn -- Loss of interest in things you once enjoyed -- Difficulty in concentrating, poor memory, have trouble making decisions -- Thoughts of harming or killing oneself, or thoughts that life is not worth living -- Low self-esteem The best treatment for depression is a combination of medicine and psychotherapy. Antidepressant medicines can reduce suffering and can improve the ability to function during the depressed period. Therapy can offer emotional support and help you understand emotional factors that may be causing the depression. Home Care: 1) Be kind to yourself. Make it a point to do things that you enjoy (gardening, walking in nature, going to a movie, etc.). Reward yourself for small successes. 2) Take care of your physical body. Eat a balanced diet (low in saturated fat and high in fruits and vegetables). Establish an exercise plan at least 3 times a week for 30 minutes. Even mild-moderate exercise (like brisk walking) can make you feel better. 3) Avoid alcohol, which can make depression worse. Follow-Up with your doctor as advised. It is important to keep in contact with a health care provider until your symptoms begin to improve. Get Prompt Medical Attention if any of the following occur: -- Feeling extreme depression, fear, anxiety, or anger toward yourself or others -- Feeling out of control -- Feeling that you may try to harm yourself or another -- Hearing voices that others do not hear -- Seeing things that others do not see -- Cant sleep or eat for 3 days in a row Weakness [Uncertain Cause] Based on your exam today, the exact cause of your weakness is not certain. However, your weakness does not seem to be a sign of a serious illness at this time. Sometimes the signs of a serious illness take more time to appear. Therefore, please watch for the warning signs listed below. Home Care: 1) Rest at home today. Do not over-exert yourself. 2) Take your medicine as prescribed. 3) For the next few days, drink extra fluids (unless your doctor wants you to restrict fluids for other reasons). Do not skip meals. Follow Up with your doctor or as advised if you are not starting to feel better within TWO days. Get Prompt Medical Attention if any of the following occur: Worsening of your symptoms Chest, arm, neck, jaw or upper back pain Dizziness or fainting Trouble breathing Unable to eat or drink normal amounts Nausea, frequent vomiting, frequent diarrhea Abdominal pain Numbness or weakness of the face, one arm or one leg Slurred speech, confusion, trouble speaking, walking or seeing Blood in vomit or stool (black or red color) Fever of 100.4 F (38 C) or higher, or as directed by your healthcare provider You have been given the following additional information: Depression Weakness, Unk Cause (Electronically signed by Nimesh Brambila MD 07/20/2016 3:41)
--- NOTE | 2016-07-20 03:41 | ED MED RECONCILIATION SUMMARY ---
Patient: GISSELLE WILSON Medication Reconciliation Report [facility] VisitID: [id number] [address] [place] [address] 71y, F Registration Date/Time: 07/18/2016 Weight: 90.7 kg Height/Length: 66 in. BMI: 32.3 ALLERGIES: morphine, Penicillin, Sulfa Antibiotics The patient's Home Medications are listed below: CONTINUE TAKING THE FOLLOWING MEDICATIONS: Atorvastatin 80mg x1 tab daily Combigan Ophthalmic Hydrochlorothiazide Oral 25 mg, daily Lantanoprost Patricia 0.005% Lantus Subcutaneous 85 units, every AM Lisinopril Oral 40 mg, daily Methazolamide Oral (25 mg) 1 tablet, x2 daily Paroxetine 40mg x2 tabs daily Pramipexole 0.25mg x1 tab at bedtime Ranitidine HCl Oral 150 mg, 2x a day RisperiDONE Oral (0.5 mg) 1 tablet, 2x a day Timolol Mal Patricia 0.5% OP - 1 gtt x2 daily TraZODone HCl Oral 50 mg, 1 1/2 tab, at bedtime Xarelto Oral (15 mg) 1 tablet, daily The source(s) of the original Home Medication information: Not obtained. The following Medications were given to the patient in the Emergency Department: None. The following Medications were prescribed to the patient: None.
--- NOTE | 2016-07-20 03:41 | ED MAR SUMMARY ---
..... Medication Administration Record [facility] [address] [place], [place] [id number] Patient: GISSELLE WILSON Visit ID: [id number] 71y, F Weight: 90.7 kg Height/Length: 66 in BMI: 32.3 ALLERGIES: morphine, Penicillin, Sulfa Antibiotics
--- NOTE | 2016-07-20 03:41 | ED MED RECONCILIATION SUMMARY ---
Patient: GISSELLE WILSON Medication Reconciliation Report [facility] VisitID: [id number] [address] [place] [address] 71y, F Registration Date/Time: 07/18/2016 Weight: 90.7 kg Height/Length: 66 in. BMI: 32.3 ALLERGIES: morphine, Penicillin, Sulfa Antibiotics The patient's Home Medications are listed below: CONTINUE TAKING THE FOLLOWING MEDICATIONS: Atorvastatin 80mg x1 tab daily Combigan Ophthalmic Hydrochlorothiazide Oral 25 mg, daily Lantanoprost Patricia 0.005% Lantus Subcutaneous 85 units, every AM Lisinopril Oral 40 mg, daily Methazolamide Oral (25 mg) 1 tablet, x2 daily Paroxetine 40mg x2 tabs daily Pramipexole 0.25mg x1 tab at bedtime Ranitidine HCl Oral 150 mg, 2x a day RisperiDONE Oral (0.5 mg) 1 tablet, 2x a day Timolol Mal Patricia 0.5% OP - 1 gtt x2 daily TraZODone HCl Oral 50 mg, 1 1/2 tab, at bedtime Xarelto Oral (15 mg) 1 tablet, daily The source(s) of the original Home Medication information: Not obtained. The following Medications were given to the patient in the Emergency Department: None. The following Medications were prescribed to the patient: None.
== END 2016-07-18 11:00 | disposition home or self-care (01) ==
LOC: ED SRH 09:25
DX: F32.9 Major depressive disorder, single episode, unspecified (principal); Z79.01 Long term (current) use of anticoagulants; R53.1 Weakness; I10 Essential (primary) hypertension; I25.10 Atherosclerotic heart disease of native coronary artery without angina pectoris; I82.409 Acute embolism and thrombosis of unspecified deep veins of unspecified lower extremity; E11.9 Type 2 diabetes mellitus without complications; K21.9 Gastro-esophageal reflux disease without esophagitis; E78.5 Hyperlipidemia, unspecified; Z79.4 Long term (current) use of insulin
CPT/HCPCS: 81460; 90004; 90100; 90616; 91320; 92235; 92530; 92610; 92760; 92761; 92762; 92763; 92764; 92765; 92766; 92767; 95059

== ENCOUNTER 2016-08-12 17:32 | Emergency (ER) | payer OTHER ==
--- NOTE | 2016-08-12 19:30 | ED NURSING NOTES ---
Clinical Report - Nurses [facility] [address] [place] [address] 08/12/2016 17:32 Patient: GISSELLE WILSON TRIAGE Triage time 17:43. Acuity: LEVEL 3. Chief Complaint: DIARRHEA and (Low glucose, 40's at home. EMS gave 2 insta-glucose, now is 126 in amb.). Alert. No acute distress. ( Bedside glucose 99mg/dl). SEPSIS SCREEN: Sepsis Screen: negative. Negative (no infection suspected/documented). DAGMAR COMA SCORE: [place] Coma Scale: 15- eyes open spontaneously (4); best verbal response- oriented x 4 (5); best motor response- obeys commands (6). --17:54 Rola Butt R.N. 17:43 08/12/16. BP: 145/59. HR: 45. RR: 16. O2 saturation: 95%. Temp: 97.4 F. Pain level now: 0/10. --17:54 Rola Butt R.N. Weight: 90.7 kg stated. Height/Length: 66 inches Per Patient. BMI: 32.3. --17:51 Rola Butt R.N. Medications Atorvastatin 80mg x1 tab daily. --18:11 Rola Butt R.N. Combigan Ophthalmic. Hydrochlorothiazide Oral 25 mg, daily. --18:11 Rola Butt R.N. Lantanoprost Patricia 0.005% . Lantus Subcutaneous 85 units, every AM. Lisinopril Oral 40 mg, daily. Methazolamide Oral (Tablet 25 mg) 1 tablet, x2 daily. Paroxetine 40mg x2 tabs daily. Pramipexole 0.25mg x1 tab at bedtime. Ranitidine HCl Oral 150 mg, 2x a day. RisperiDONE Oral (Tablet Dispersible 0.5 mg) 1 tablet, 2x a day. Timolol Mal Patricia 0.5% OP - 1 gtt x2 daily. TraZODone HCl Oral 50 mg, 1 1/2 tab, at bedtime. Xarelto Oral (Tablet 15 mg) 1 tablet, daily. --18:11 Rola Butt R.N. Medication/allergy information source: the patient and other. --17:54 Rola Butt R.N. Allergies morphine. Penicillin. Sulfa Antibiotics. --18:11 Rola Butt R.N. History Arrived by EMS. Historian: patient. Primary physician (sharon). This started today. She has had nausea, vomiting and diarrhea. No abdominal pain. Last oral intake by patient was breakfast today. Treatment IP ARCHITECT: EMS treatment IP ARCHITECT verbally communicated. See EMS report. Finger stick glucose performed (126). BP: 118 / 78. HR: 60. RR: 14. O2 saturation: 96 % room air. Upon arrival patient awake. (assisted in the move to the bed). PAST MEDICAL HX: Immunizations: up-to-date. The patient is post-menopausal. SOCIAL HX: Smoker- current status unknown. History of drug use: marijuana. Recently used drugs yesterday. No alcohol use. FALL RISK ASSESSMENT: Fall risk assessment completed. No fall risk identified. NUTRITIONAL RISK ASSESSMENT: The nutritional risk assessment revealed no deficiencies. 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 LEARNING NEEDS ASSESSMENT: A learning needs assessment was performed. The preferred method of learning is via verbal instruction. --17:54 Rola Butt R.N. PROBLEMS: Benign Positional Vertigo. Weakness. Hypertension. Hypoxia. Influenza. Hypoglycemia. MRSA Infection. Dyspnea. UTI - Urinary Tract Infection. DVT - Deep Venous Thrombosis. Renal Insufficiency. Bronchitis. Blindness. Wound Infection. TIA - Transient Ischemic Attack. Concussion. Abrasion(s). Fall. Colon Cancer. Tetanus Status. Vomiting. Abdominal Pain. Immunizations. LNMP - Last Normal Menstrual Period. Myofascial Strain. Contusion. Anxiety Reaction. Arthritis. Back Pain. Coronary Artery Disease. Cataracts. CVA - Cerebrovascular Accident. Depression. Diabetes Mellitus. Hyperlipidemia. Peripheral Vascular Disease. Gastroesophageal Reflux Disease. --17:50 Rola Butt R.N. ADDITIONAL SURGERIES: Abdominal Aortic Aneurysm Repair. Appendectomy. Colostomy. Colostomy takedown . Tonsillectomy. --17:50 Rola Butt R.N. Interventions ID band on patient. To room. --17:54 Rola Butt R.N. PHYSICAL ASSESSMENT To room via stretcher. Patient gowned. GENERAL / NEURO / PSYCH: Alert. Oriented X 4. Appears anxious. HEENT: Mucous membranes are pink. RESPIRATORY: Respirations not labored. CVS: Capillary refill less than 2 seconds. GI / : Abdomen soft and nontender. SKIN: Skin is warm and dry. --17:58 Rola Butt R.N. NURSING PROGRESS NOTES 17:57 08/12/2016 Site #1 started via IV in the right antecubital space with an 18g angiocath; one attempt. Blood drawn: rainbow set. Labeled in the presence of the patient and sent to the lab. --17:57 Norma Fritz R.N. panel monitor placed on patient; classroom monitor- Lead II; monitor alarms on. Patient gowned. Head of bed elevated. Reassurance given. Two patient identifiers checked. Call light placed in reach. Side rails up x 2. Bed placed in lowest position. Brakes of bed on. Patient ready for evaluation. --17:58 Rola Butt R.N. Head of bed elevated. Regular diet offered; (juice and sandwich). --18:12 Rola Butt R.N. EKG time: (1800). EKG was ordered, performed by a tech and shown to the ED physician. --18:14 Leida Chester Reassurance given. The patient is calm. Overall patient status is improved- she states feels better. GI / : Denies abdominal pain, nausea or diarrhea. Patient identifiers checked. Call light placed in reach. Side rails up x 1. Bed placed in lowest position. Brakes of bed on. --19:04 Norma Fritz R.N. 19:02 08/12/16. BP: 115/78. HR: 53. RR: 20. O2 saturation: 96% on room air. Temp: 97.5 F (oral). Pain level now: 0/10. --19:04 Norma Fritz R.N. Point of care testing: performed by tech. Glucose: 131. Result shown to the PA. Orders were not received. --19:04 Norma Fritz R.N. 19:20. ( Spoke with the patient's daughter, by phone . Daughter coming to worm picker the patient.). --20:04 Rola Butt R.N. ( Glucose at the bedside, 122.). --20:44 Rola Butt R.N. DISPOSITION / DISCHARGE 22:00 08/12/16. Condition at departure: stable. The goals identified in the patient's plan of care were met. No learning barriers present. Discharge instructions provided and reviewed with the patient. Reviewed medication(s). Medication(s) precautions not reviewed. Reviewed need for increased fluid intake. Patient and family verbalized understanding. Written instructions provided in French. ( Follow up with your PCP on Monday. Closely monitor your sugar and be sure to eat prior to medication administration. Stay with a responsible person. Patient provided with fresh clothes and depends. Patient and family verbalized understanding and had no additional questions at this time.). The patient was discharged by the physician. She was discharged home and accompanied by family. She left the Emergency Department in a wheelchair and via private vehicle. Family member driving. ( Provider aware of vitals, patient clear for discharge.). --00:33 Corrie Munoz 22:00 08/12/16. BP: 168/52. HR: 60. RR: 20. O2 saturation: 98% on room air. Temp: 98 F (oral). Pain level now: 0/10. --00:33 Corrie Munoz 22:00 08/12/2016 Site #1 removed upon discharge. Catheter intact. Bandaid applied. --00:36 Corrie Munoz. Locked/Released at 08/13/2016 0:36 by Corrie Munoz,
--- NOTE | 2016-08-12 19:30 | ED NURSING NOTES ---
Clinical Report - Nurses [facility] [address] [place] [address] 08/12/2016 17:32 Patient: GISSELLE WILSON TRIAGE Triage time 17:43. Acuity: LEVEL 3. Chief Complaint: DIARRHEA and (Low glucose, 40's at home. EMS gave 2 insta-glucose, now is 126 in amb.). Alert. No acute distress. ( Bedside glucose 99mg/dl). SEPSIS SCREEN: Sepsis Screen: negative. Negative (no infection suspected/documented). DAGMAR COMA SCORE: Dagmar Coma Scale: 15- eyes open spontaneously (4); best verbal response- oriented x 4 (5); best motor response- obeys commands (6). --17:54 Rola Butt R.N. 17:43 08/12/16. BP: 145/59. HR: 45. RR: 16. O2 saturation: 95%. Temp: 97.4 F. Pain level now: 0/10. --17:54 Rola Butt R.N. Weight: 90.7 kg stated. Height/Length: 66 inches Per Patient. BMI: 32.3. --17:51 Rola Butt R.N. Medications Atorvastatin 80mg x1 tab daily. --18:11 Rola Butt R.N. Combigan Ophthalmic. Hydrochlorothiazide Oral 25 mg, daily. --18:11 Rola Butt R.N. Lantanoprost Patricia 0.005% . Lantus Subcutaneous 85 units, every AM. Lisinopril Oral 40 mg, daily. Methazolamide Oral (Tablet 25 mg) 1 tablet, x2 daily. Paroxetine 40mg x2 tabs daily. Pramipexole 0.25mg x1 tab at bedtime. Ranitidine HCl Oral 150 mg, 2x a day. RisperiDONE Oral (Tablet Dispersible 0.5 mg) 1 tablet, 2x a day. Timolol Mal Patricia 0.5% OP - 1 gtt x2 daily. TraZODone HCl Oral 50 mg, 1 1/2 tab, at bedtime. Xarelto Oral (Tablet 15 mg) 1 tablet, daily. --18:11 Rola Butt R.N. Medication/allergy information source: the patient and other. --17:54 Rola Butt R.N. Allergies morphine. Penicillin. Sulfa Antibiotics. --18:11 Rola Butt R.N. History Arrived by EMS. Historian: patient. Primary physician (sharon). This started today. She has had nausea, vomiting and diarrhea. No abdominal pain. Last oral intake by patient was breakfast today. Treatment BRACER: EMS treatment BRACER verbally communicated. See EMS report. Finger stick glucose performed (126). BP: 118 / 78. HR: 60. RR: 14. O2 saturation: 96 % room air. Upon arrival patient awake. (assisted in the move to the bed). PAST MEDICAL HX: Immunizations: up-to-date. The patient is post-menopausal. SOCIAL HX: Smoker- current status unknown. History of drug use: marijuana. Recently used drugs yesterday. No alcohol use. FALL RISK ASSESSMENT: Fall risk assessment completed. No fall risk identified. NUTRITIONAL RISK ASSESSMENT: The nutritional risk assessment revealed no deficiencies. 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 LEARNING NEEDS ASSESSMENT: A learning needs assessment was performed. The preferred method of learning is via verbal instruction. --17:54 Rola Butt R.N. PROBLEMS: Benign Positional Vertigo. Weakness. Hypertension. Hypoxia. Influenza. Hypoglycemia. MRSA Infection. Dyspnea. UTI - Urinary Tract Infection. DVT - Deep Venous Thrombosis. Renal Insufficiency. Bronchitis. Blindness. Wound Infection. TIA - Transient Ischemic Attack. Concussion. Abrasion(s). Fall. Colon Cancer. Tetanus Status. Vomiting. Abdominal Pain. Immunizations. LNMP - Last Normal Menstrual Period. Myofascial Strain. Contusion. Anxiety Reaction. Arthritis. Back Pain. Coronary Artery Disease. Cataracts. CVA - Cerebrovascular Accident. Depression. Diabetes Mellitus. Hyperlipidemia. Peripheral Vascular Disease. Gastroesophageal Reflux Disease. --17:50 Rola Butt R.N. ADDITIONAL SURGERIES: Abdominal Aortic Aneurysm Repair. Appendectomy. Colostomy. Colostomy takedown . Tonsillectomy. --17:50 Rola Butt R.N. Interventions ID band on patient. To room. --17:54 Rola Butt R.N. PHYSICAL ASSESSMENT To room via stretcher. Patient gowned. GENERAL / NEURO / PSYCH: Alert. Oriented X 4. Appears anxious. HEENT: Mucous membranes are pink. RESPIRATORY: Respirations not labored. CVS: Capillary refill less than 2 seconds. GI / : Abdomen soft and nontender. SKIN: Skin is warm and dry. --17:58 Rola Butt R.N. NURSING PROGRESS NOTES 17:57 08/12/2016 Site #1 started via IV in the right antecubital space with an 18g angiocath; one attempt. Blood drawn: rainbow set. Labeled in the presence of the patient and sent to the lab. --17:57 Norma Fritz R.N. quality assurance monitor body placed on patient; electronic device monitor- Lead II; monitor alarms on. Patient gowned. Head of bed elevated. Reassurance given. Two patient identifiers checked. Call light placed in reach. Side rails up x 2. Bed placed in lowest position. Brakes of bed on. Patient ready for evaluation. --17:58 Rola Butt R.N. Head of bed elevated. Regular diet offered; (juice and sandwich). --18:12 Rola Butt R.N. EKG time: (1800). EKG was ordered, performed by a tech and shown to the ED physician. --18:14 Leida Chester Reassurance given. The patient is calm. Overall patient status is improved- she states feels better. GI / : Denies abdominal pain, nausea or diarrhea. Patient identifiers checked. Call light placed in reach. Side rails up x 1. Bed placed in lowest position. Brakes of bed on. --19:04 Norma Fritz R.N. 19:02 08/12/16. BP: 115/78. HR: 53. RR: 20. O2 saturation: 96% on room air. Temp: 97.5 F (oral). Pain level now: 0/10. --19:04 Norma Fritz R.N. Point of care testing: performed by tech. Glucose: 131. Result shown to the PA. Orders were not received. --19:04 Norma Fritz R.N. 19:20. ( Spoke with the patient's daughter, by phone . Daughter coming to mixing picker tender the patient.). --20:04 Rola Butt R.N. ( Glucose at the bedside, 122.). --20:44 Rola Butt R.N. DISPOSITION / DISCHARGE 22:00 08/12/16. Condition at departure: stable. The goals identified in the patient's plan of care were met. No learning barriers present. Discharge instructions provided and reviewed with the patient. Reviewed medication(s). Medication(s) precautions not reviewed. Reviewed need for increased fluid intake. Patient and family verbalized understanding. Written instructions provided in Pashto. ( Follow up with your PCP on Monday. Closely monitor your sugar and be sure to eat prior to medication administration. Stay with a responsible person. Patient provided with fresh clothes and depends. Patient and family verbalized understanding and had no additional questions at this time.). The patient was discharged by the physician. She was discharged home and accompanied by family. She left the Emergency Department in a wheelchair and via private vehicle. Family member driving. ( Provider aware of vitals, patient clear for discharge.). --00:33 Corrie Munoz 22:00 08/12/16. BP: 168/52. HR: 60. RR: 20. O2 saturation: 98% on room air. Temp: 98 F (oral). Pain level now: 0/10. --00:33 Corrie Munoz 22:00 08/12/2016 Site #1 removed upon discharge. Catheter intact. Bandaid applied. --00:36 Corrie Munoz. Locked/Released at 08/13/2016 0:36 by Corrie Munoz,
--- NOTE | 2016-08-12 19:30 | ED CLINICAL REPORT ---
Clinical Report - Physicians/Mid Levels [facility] [address] [place] [address] 08/12/2016 17:32 Patient: GISSELLE WILSON Time Seen: 17:55 Krishan 2016. Arrived- By ambulance. Historian- EMS personnel. HISTORY OF PRESENT ILLNESS Chief Complaint: ams. This started just prior to arrival and is still present. (Patient was found to have 38 as blood glucose, was given instant glucose in the ambulance ride, glucose prior to arrival was 128. Pt in ER has no complaints. Pt with long standing vision problems, and may have given her self extra insulin. Pt with no changes to meds. No new meds. Denies sob/ chest pain, syncope/ seizures.). REVIEW OF SYSTEMS No fever, sore throat, vomiting, difficulty with urination or headache. No difficulty with ambulation. All systems otherwise negative, except as recorded above. PAST HISTORY See nurses notes. Problems: Benign Positional Vertigo. Weakness. Hypertension. Hypoxia. Influenza. Hypoglycemia. MRSA Infection. Dyspnea. UTI - Urinary Tract Infection. DVT - Deep Venous Thrombosis. Renal Insufficiency. Bronchitis. Blindness. Wound Infection. TIA - Transient Ischemic Attack. Concussion. Abrasion(s). Fall. Colon Cancer. Tetanus Status. Vomiting. Abdominal Pain. Immunizations. LNMP - Last Normal Menstrual Period. Myofascial Strain. Contusion. Anxiety Reaction. Arthritis. Back Pain. Coronary Artery Disease. Cataracts. CVA - Cerebrovascular Accident. Depression. Diabetes Mellitus. Hyperlipidemia. Peripheral Vascular Disease. Gastroesophageal Reflux Disease. SOCIAL HISTORY History of drug use: marijuana. No alcohol use. ADDITIONAL NOTES The nursing notes have been reviewed. PHYSICAL EXAM Vital Signs: 08/12/2016 17:43 BP: 145/59. HR: 45. RR: 16. O2 saturation: 95%. Temp: 97.4 F. Pain level now: 0/10. Appearance: Alert. Eyes: Eyes normal inspection. ENT: Ears normal. Nose normal. Neck: Normal inspection. No lymphadenopathy. CVS: Bradycardia. Respiratory: No respiratory distress. Breath sounds normal. Abdomen: No visible injury. Bowel sounds normal. No rebound tenderness, distention or mass present. Back: Normal inspection. No CVA tenderness. Skin: Skin warm. Normal skin color. LABS, X-RAYS, AND EKG EKG: EKG time: (1801). Bradycardia (44). Normal P waves. Normal OSWALDO. Normal QRS complex. Normal QT. Laboratory Tests: CBC w Diff: (NEREIDA: 08/12/2016 17:55) ( [facility] 08/12/2016 18:10) Final results Test Result Flag Units (Reference) WHITE BLOOD COUNT 8.8 K/uL (4.5-11.5) RED BLOOD COUNT 4.49 M/uL (4.00-5.20) HEMOGLOBIN 12.3 gm/dL (12.0-16.0) HEMATOCRIT 36.9 % (36.0-46.0) MEAN CELL VOLUME 82 fL (80-100) MEAN CORPUSCULAR HGB 27 pg (26-34) MEAN CORPUSCULAR HGB CONC 33 g/dL (31-37) RED CELL DISTRIBUTION WIDTH 13.3 % (11.6-14.8) PLATELET COUNT 123 L K/uL (150-400) NEUTROPHIL % 72.5 % (50-75) LYMPH % 18.9 L % (25-40) MONO % 5.1 % (3-14) EOSINOPHIL % 3.0 % (0-4) BASOPHIL % 0.5 % (0-2) CMP: (NEREIDA: 08/12/2016 17:55) ( [facility] 08/12/2016 18:27) Final results Test Result Flag Units (Reference) GLUCOSE 98 mg/dL (70-110) BUN 31 H mg/dL (7-18) CREATININE 1.5 H mg/dL (0.6-1.3) Estimated GFR 36.59 mL/min Estimated GFR- 44.35 mL/min Note: Persistent reduction over 3 months in eGFR<60 mL/min/1.73 m2 defines CKD. Patients with eGFR values>=60 mL/min/1.73 m2 may also have CKD if evidence ofpersistent proteinuria. Additional information may be foundat www.kidney.org. SODIUM 137 mmol/L (136-145) POTASSIUM 4.4 mmol/L (3.5-5.1) CHLORIDE 104 mmol/L (98-107) CARBON DIOXIDE 27 mmol/L (21-32) CALCIUM 8.5 mg/dL (8.5-10.1) TOTAL PROTEIN 7.0 g/dL (6.4-8.2) ALBUMIN 3.2 L g/dL (3.3-5.0) BILIRUBIN, TOTAL 0.2 mg/dL (0.0-1.0) ALKALINE PHOSPHATASE 68 U/L (46-116) AST (SGOT) 15 U/L (15-37) ALT (SGPT) 18 U/L (12-78) . PROGRESS AND PROCEDURES Course of Care: ( Glucose at the bedside, 122.). --20:44 Here in the ER basic labs are as above. Patient is asymptomatic. Glucose Salbador, have been above 100. Patient given juice and food. Her family has come to pick her up and she is stable for d/c. 08/12/2016 19:02 BP: 115/78. HR: 53. RR: 20. O2 saturation: 96%. Temp: 97.5 F. Pain level now: 0/10. Patient is stable. Physical exam findings are improved. Symptoms better. Patient/family counseled. Disposition: Discharged. CLINICAL IMPRESSION Chronic, moderately well controlled diabetes with hypoglycemia. INSTRUCTIONS (Check sugar every 90-120 minutes, stay with a responsible adult). Warnings: Further evaluation is necessary. Follow-up: Follow up with your doctor Monday. (Electronically signed by Nikkie Barraza P.A.-C 08/12/2016 22:02)
--- NOTE | 2016-08-12 19:30 | ED ORDER SUMMARY ---
..... Patient: GISSELLE WILSON OrderSheet [facility] VisitID: [id number] [place] [address] 71y, F Registration Date/Time: 08/12/2016 ORDER SHEET Weight: 90.7 kg (stated) Allergies: morphine, Penicillin, Sulfa Antibiotics GENERAL ORDERS: CBC w Diff Urgent (17:46 08/12/2016 EKoroleva P.A.-C) (Ack 17:55 KHoerner) (17:56 EHassan R.N.) CMP Urgent (17:46 08/12/2016 EKoroleva P.A.-C) (Ack 17:55 ELSIoerner) (17:56 EHassan R.N.) EKG - ER Stat (17:53 08/12/2016 JSimbeck R.N. verbal order read back to EKoroleva P.A.-C) (17:56 EHassan R.N.) POC Glucose (17:54 08/12/2016 JSimbeck R.N. verbal order read back to EKoroleva P.A.-C) (17:56 EHassan R.N.) POC Glucose (18:58 08/12/2016 EKoroleva P.A.-C) (19:05 SRoberts R.N.) Vitals (18:58 08/12/2016 EKoroleva P.A.-C) (19:05 SRoberts R.N.) POC Glucose (20:22 08/12/2016 EKoroleva P.A.-C) (20:45 HSoule) MEDICATION ORDERS: IV FLUIDS: IV Saline Lock (17:46 08/12/2016 EKoroleva P.A.-C) (17:57 EHassan R.N.) ORDER SHEET NOTES: [Electronically signed by Nikkie Barraza P.A.-C (22:02 08/12/2016)] [Electronically signed by Corrie Munoz (00:36 08/13/2016)] [Electronically locked/signed by Corrie Munoz (00:36 08/13/2016)]
--- NOTE | 2016-08-12 19:30 | ED ORDER SUMMARY ---
..... Patient: GISSELLE WILSON OrderSheet [facility] VisitID: [id number] [place] [address] 71y, F Registration Date/Time: 08/12/2016 ORDER SHEET Weight: 90.7 kg (stated) Allergies: morphine, Penicillin, Sulfa Antibiotics GENERAL ORDERS: CBC w Diff Urgent (17:46 08/12/2016 EKoroleva P.A.-C) (Ack 17:55 KHoerner) (17:56 EHassan R.N.) CMP Urgent (17:46 08/12/2016 EKoroleva P.A.-C) (Ack 17:55 ELSIoerner) (17:56 EHassan R.N.) EKG - ER Stat (17:53 08/12/2016 JSimbeck R.N. verbal order read back to EKoroleva P.A.-C) (17:56 EHassan R.N.) POC Glucose (17:54 08/12/2016 JSimbeck R.N. verbal order read back to EKoroleva P.A.-C) (17:56 EHassan R.N.) POC Glucose (18:58 08/12/2016 EKoroleva P.A.-C) (19:05 SRoberts R.N.) Vitals (18:58 08/12/2016 EKoroleva P.A.-C) (19:05 SRoberts R.N.) POC Glucose (20:22 08/12/2016 EKoroleva P.A.-C) (20:45 HSoule) MEDICATION ORDERS: IV FLUIDS: IV Saline Lock (17:46 08/12/2016 EKoroleva P.A.-C) (17:57 EHassan R.N.) ORDER SHEET NOTES: [Electronically signed by Nikkie Barraza P.A.-C (22:02 08/12/2016)] [Electronically signed by Corrie Munoz (00:36 08/13/2016)] [Electronically locked/signed by Corrie Munoz (00:36 08/13/2016)]
--- NOTE | 2016-08-13 00:36 | ED MAR SUMMARY ---
..... Medication Administration Record [facility] [address], [place] [id number] Patient: GISSELLE WILSON Visit ID: [id number] 71y, F Weight: 90.7 kg Height/Length: 66 in BMI: 32.3 ALLERGIES: morphine, Penicillin, Sulfa Antibiotics
--- NOTE | 2016-08-13 00:36 | ED MED RECONCILIATION SUMMARY ---
Patient: GISSELLE WILSON Medication Reconciliation Report [facility] VisitID: [id number] [address] [place] [address] 71y, F Registration Date/Time: 08/12/2016 Weight: 90.7 kg Height/Length: 66 in. BMI: 32.3 ALLERGIES: morphine, Penicillin, Sulfa Antibiotics The patient's Home Medications are listed below: THE FOLLOWING MEDICATIONS NEED TO BE RECONCILED: Atorvastatin 80mg x1 tab daily Combigan Ophthalmic Hydrochlorothiazide Oral 25 mg, daily Lantanoprost Patricia 0.005% Lantus Subcutaneous 85 units, every AM Lisinopril Oral 40 mg, daily Methazolamide Oral (25 mg) 1 tablet, x2 daily Paroxetine 40mg x2 tabs daily Pramipexole 0.25mg x1 tab at bedtime Ranitidine HCl Oral 150 mg, 2x a day RisperiDONE Oral (0.5 mg) 1 tablet, 2x a day Timolol Mal Patricia 0.5% OP - 1 gtt x2 daily TraZODone HCl Oral 50 mg, 1 1/2 tab, at bedtime Xarelto Oral (15 mg) 1 tablet, daily The source(s) of the original Home Medication information: other patient The following Medications were given to the patient in the Emergency Department: None. The following Medications were prescribed to the patient: None.
--- NOTE | 2016-08-13 00:36 | ED MAR SUMMARY ---
..... Medication Administration Record [facility] [address] [place], [place] [id number] Patient: GISSELLE WILSON Visit ID: [id number] 71y, F Weight: 90.7 kg Height/Length: 66 in BMI: 32.3 ALLERGIES: morphine, Penicillin, Sulfa Antibiotics
--- NOTE | 2016-08-13 00:36 | ED DISCHARGE INSTRUCTIONS ---
Patient: GISSELLE WILSON General Instructions [facility] VisitID: [id number] [place] [address] 71y, F Registration Date/Time: 08/12/2016 Chronic, moderately well controlled diabetes with hypoglycemia. INSTRUCTIONS (Check sugar every 90-120 minutes, stay with a responsible adult). Warnings: Further evaluation is necessary. Follow-up: Follow up with your doctor Monday. ADDITIONAL INFORMATION Diabetes (General Information) Cells of the body need glucose (sugar) for fuel. Insulin is the hormone in the body that lets glucose move from the blood into the cells. Diabetes is a chronic health condition where the body is not able to produce enough insulin, or does not respond well to its own insulin. Because the glucose in the blood cannot get into the cells, it builds up in the blood causing high blood sugar (hyperglycemia). Your actual blood sugar level is a result of the balance between several factors. These include what kind of food you eat and how much of it you eat, how much exercise you get, and the amount of insulin present in your body. Eating too much of the wrong kinds of food or not taking diabetes medicine on time can cause high blood sugar. Infections can cause high blood sugar even if you are taking medicines correctly. Missing meals, not eating enough food, or taking too much diabetes medicine can lead to low blood sugar. Untreated over long periods of time, diabetes can cause serious problems such as heart disease, stroke, kidney failure, blindness, nerve pain or loss of feeling in the legs and feet, and gangrene of the feet. With good treatment keeping your blood sugar under control, you can prevent or delay the complications of diabetes. Normal blood sugar levels are 70-130 one to two hours before a meal and not more than 180 two hours after a meal. Home Care: Follow your prescribed diabetic diet and take insulin or oral diabetic medicine exactly as ordered. Monitor blood sugars as advised. Keep a log of your results. This will help your doctor adjust your medicines to keep your blood sugar under control. Try to achieve your ideal weight. Proper diet and exercise can reduce or eliminate the need to take diabetes medicine. Avoid tobacco smoking, which worsens the effect of diabetes on your circulation. The risk of a heart attack in a diabetic is 15 times more likely if you smoke. Pay attention to good foot care. If you have lost feeling in your feet you may not notice an injury or infection. Check your feet and between your toes at least once a week. Wear a medical alert bracelet or carry a card in your wallet explaining that you are diabetic. In the event that you become very ill and are unable to give this information, it will help medical personnel provide proper care. If you become sick with a cold, the flu, or an infection (viral or bacterial), please do the following: Review your diabetes sick plan and contact your physician as instructed. You may have been advised to call the doctor immediately if: Your blood sugar is above 240 while taking your diabetes medication Your urine ketone levels are above normal or showing high levels of ketones You have been vomiting more than 6 hours You experience difficulty to trouble breathing You develop a high fever or you have had a fever for a couple of days and you aren't getting better You become light-headed and more sleepy than usual Keep taking your oral diabetes medicine (pills) even if you have been vomiting and feeling sick. Contact your doctor immediately for advice because you may need insulin to lower your blood sugar until you recover from your illness. Keep taking your insulin, even if you have been vomiting and feeling sick. Call your doctor immediately and ask if a temporary adjustment of your insulin dose is needed based on your blood glucose (sugar) results. Check your blood sugar every 2 to 4 hours, or at least 4 times a day. Check your keytones often. If you are vomiting and having diarrhea, monitor them more frequently. Don't skip meals. Try to eat small meals on a regular schedule, even if you do not have an appetite. Drink water or other calorie-free, non-caffeinated liquids to stay hydrated. If you are nauseated or vomiting, drink small amounts (sips, a teaspoon) every 5 minutes. To prevent dehydration, try to drink a cup or 8 ounces of fluids every hour while you are awake. Always carry a source of fast-acting sugar with you in case you get symptoms of low blood sugar (below 70). At the first sign of low blood sugar, eat or drink 15 to 20 grams of fast-acting sugar to raise your blood sugar. Examples include: 3 to 4 glucose tablets (found at most drugstores) 4 ounces (1/2 cup) of regular (not diet) softdrinks 4 ounces (1/2 cup) of any fruit juice 8 ounces (1 cup) of milk 5 to 6 pieces of hard candy 1 tablespoon of honey Check your blood sugar 15 minutes after treating yourself. If it is still low (below 70), take another 15 to 20 grams of fast-acting sugar. Test again in 15 minutes. If it returns to normal (70 or above), eat a snack or meal to keep your blood sugar in a safe range. If it remains low, call your doctor or go to an emergency room. Follow Up with your doctor as advised by our staff. For more information, contact the [place] [employer]. www.diabetes.org or 026-717-7998. Get Prompt Medical Attention if any of the following occur: HIGH BLOOD SUGAR: frequent urination, dizziness, drowsiness, thirst, headache, nausea or vomiting, abdominal pain, vision changes, fast breathing, confusion or loss of consciousness LOW BLOOD SUGAR: fatigue, headache, shakes, excess sweating, hunger, feeling anxious or restless, vision changes, drowsiness, weakness, confusion or loss of consciousness Chest pain or shortness of breath Dizziness or fainting Weakness of an arm or leg or one side of the face Trouble with speech or vision You have been given the following additional information: Diabetes, General Info (Electronically signed by Nikkie Barraza P.A.-C 08/12/2016 22:02)
--- NOTE | 2016-08-13 00:36 | ED MED RECONCILIATION SUMMARY ---
Patient: GISSELLE WILSON Medication Reconciliation Report [facility] VisitID: [id number] [address] [place] [address] 71y, F Registration Date/Time: 08/12/2016 Weight: 90.7 kg Height/Length: 66 in. BMI: 32.3 ALLERGIES: morphine, Penicillin, Sulfa Antibiotics The patient's Home Medications are listed below: THE FOLLOWING MEDICATIONS NEED TO BE RECONCILED: Atorvastatin 80mg x1 tab daily Combigan Ophthalmic Hydrochlorothiazide Oral 25 mg, daily Lantanoprost Patricia 0.005% Lantus Subcutaneous 85 units, every AM Lisinopril Oral 40 mg, daily Methazolamide Oral (25 mg) 1 tablet, x2 daily Paroxetine 40mg x2 tabs daily Pramipexole 0.25mg x1 tab at bedtime Ranitidine HCl Oral 150 mg, 2x a day RisperiDONE Oral (0.5 mg) 1 tablet, 2x a day Timolol Mal Patricia 0.5% OP - 1 gtt x2 daily TraZODone HCl Oral 50 mg, 1 1/2 tab, at bedtime Xarelto Oral (15 mg) 1 tablet, daily The source(s) of the original Home Medication information: other patient The following Medications were given to the patient in the Emergency Department: None. The following Medications were prescribed to the patient: None.
== END 2016-08-12 20:00 | disposition home or self-care (01) ==
LOC: ED SRH 17:32
DX: E11.649 Type 2 diabetes mellitus with hypoglycemia without coma (principal); Z88.0 Allergy status to penicillin; I10 Essential (primary) hypertension; I25.10 Atherosclerotic heart disease of native coronary artery without angina pectoris; E78.5 Hyperlipidemia, unspecified; K21.9 Gastro-esophageal reflux disease without esophagitis; Z86.73 Personal history of transient ischemic attack (TIA), and cerebral infarction without residual deficits; Z85.038 Personal history of other malignant neoplasm of large intestine; Z79.4 Long term (current) use of insulin; Z79.899 Other long term (current) drug therapy
CPT/HCPCS: 90098; 90100; 95059

== ENCOUNTER 2016-08-14 11:45 | Emergency (ER) | payer OTHER ==
--- NOTE | 2016-08-14 14:26 | DIAGNOSTIC IMAGING REPORT ---
PROCEDURE: XR CHEST 1 VIEW INDICATION: LOWER CHEST PAIN/EPIGASTRIC ABDOMINAL PAIN TECHNIQUE: Single view chest. 1230 hours COMPARISON: 07/18/2016 FINDINGS: The cardiopulmonary contour and central vasculature are stable, within normal limits. The lungs are clear without focal consolidation, pleural effusion or pneumothorax. The osseous structures are intact. Degenerative endplate spurring throughout the thoracic spine. IMPRESSION: 1. No acute process, stable compared to the prior study.
--- NOTE | 2016-08-14 20:34 | DIAGNOSTIC IMAGING REPORT ---
PROCEDURE: NM PULMONARY PERFUSION W/VENT INDICATION: Elevated D-dimer, right-sided and central chest pain, history of smoking, quit 10 years ago. TECHNIQUE: 41.5 mCi of technetium-99m DTPA was aerosolized and inhaled. 6.1 mCi technetium-99m MAA was injected intravenously. Ventilation and perfusion images of the lungs were obtained in eight orthogonal projections. COMPARISON: 08/19/2014, Chest x-ray Performed the same day. FINDINGS: Ventilation images: Heterogeneous distribution of radiotracer throughout the lungs. There is clumping of radiotracer in the central airways. Inhaled/ swallowed radiotracer is seen in the stomach. No significant ventilation defect. Improvement in upper lobe aeration is seen compared the prior study Perfusion images: Fairly homogeneous distribution of perfusion radiotracer throughout the lungs. No large perfusion defects are visible. Interval resolution of left upper and lower lobe perfusion defects previously seen. No mismatched defects of perfusion versus ventilation to suggest pulmonary embolus. IMPRESSION: 1. Low probability of pulmonary embolus. 2. Interval resolution of perfusion defects in the left lung seen previously. 3. Discussed with Dr. Ortez in the emergency room.
--- NOTE | 2016-08-14 20:46 | ED ORDER SUMMARY ---
..... 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) (CP/epigastric) (12:08/14/2016 Junito Cruz) (12:19 SRoberts R.N.) CBC w Diff Urgent (12:08/14/2016 Junito Cruz) (Ack 12:14 App47 ER Tech1) (12:39 SRoberts R.N.) CMP Urgent (12:08/14/2016 Junito Cruz) (Ack 12:14 App47 ER Tech1) (12:39 SRoberts R.N.) UA-Culture if indicated Urgent (12:08/14/2016 Junito Cruz) (Ack 12:14 App47 ER Tech1) (13:34 SRoberts R.N.) PT with INR Urgent (12:08/14/2016 Junito Cruz) (Ack 12:14 AutomateItouse ER Tech1) (12:40 SRoberts R.N.) D-Dimer Urgent (12:08/14/2016 Junito Cruz) (Ack 12:14 App47 ER Tech1) (12:40 SRoberts R.N.) Lipase Urgent (12:08/14/2016 Junito Cruz) (Ack 12:14 AutomateItouse ER Tech1) (12:40 SRoberts R.N.) Troponin-I Urgent (12:08/14/2016 Junito Cruz) (Ack 12:14 App47 ER Tech1) (12:40 SRoberts R.N.) Pulse oximeter (12:08/14/2016 Junito Cruz) (12:19 SRoberts R.N.) BNP Urgent (12:37 08/14/2016 Junito Cruz) (12:40 SRoberts R.N.) (Ack 12:42 NHouse ER Tech1) CTA Thorax w Cont (No) (N/A) Urgent (13:44 08/14/2016 Junito Cruz) (Cancelled: Duplicate Order13:45 Junito Cruz) VQ Scan Urgent (13:45 08/14/2016 Junito Cruz) (Ack 13:56 NHouse ER Tech1) (20:11 SRoberts R.N.) MEDICATION ORDERS: GI Cocktail WHITE PO 30 mL (NOW) (12:10 08/14/2016 Junito Cruz) (12:44 SRoberts R.N.) GI Cocktail WHITE PO 30 mL (NOW) (16:39 08/14/2016 Junito Cruz) (Ack 16:42 SRoberts R.N.) (16:55 SRoberts R.N.) Pepcid PO 20 mg (NOW) (17:06 08/14/2016 Sathya RMargauxN. verbal order read back to Junito Cruz) (17:07 SRoberts R.N.) Tylenol PO 650 mg (NOW) (20:02 08/14/2016 Junito Cruz) (Ack 20:11 SRoberts R.N.) (20:22 SRoberts R.N.) IV FLUIDS: IV Saline Lock (12:10 08/14/2016 Junito Cruz) (12:20 SRoberts R.N.) Pepcid IV 20 mg/50mL (NOW) (16:39 08/14/2016 Junito Cruz) (Ack 16:42 SRoberts R.N.) (Cancelled: Physician Order17:06 SRoberts R.N.) Fentanyl IV 50 mcg (HIGH ALERT MEDICATION, NOW) (20:02 08/14/2016 Junito Cruz) (Ack 20:11 SRoberts R.N.) (20:22 SRoberts R.N.) ORDER SHEET NOTES: [Electronically signed by Aury English R.N. (16:59 08/15/2016)] [Electronically signed by Rashad Ortez Dr. (19:07 08/16/2016)] [Electronically locked/signed by Aury English R.N. (16:59 08/15/2016)]
--- NOTE | 2016-08-14 20:46 | ED ORDER SUMMARY ---
..... 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) (CP/epigastric) (12:08/14/2016 Junito Cruz) (12:19 SRoberts R.N.) CBC w Diff Urgent (12:08/14/2016 Junito Cruz) (Ack 12:14 Fundera ER Tech1) (12:39 SRoberts R.N.) CMP Urgent (12:08/14/2016 Junito Cruz) (Ack 12:14 Fundera ER Tech1) (12:39 SRoberts R.N.) UA-Culture if indicated Urgent (12:08/14/2016 Junito Cruz) (Ack 12:14 Fundera ER Tech1) (13:34 SRoberts R.N.) PT with INR Urgent (12:08/14/2016 Junito Cruz) (Ack 12:14 Locqusouse ER Tech1) (12:40 SRoberts R.N.) D-Dimer Urgent (12:08/14/2016 Junito Cruz) (Ack 12:14 Fundera ER Tech1) (12:40 SRoberts R.N.) Lipase Urgent (12:08/14/2016 Junito Cruz) (Ack 12:14 Locqusouse ER Tech1) (12:40 SRoberts R.N.) Troponin-I Urgent (12:08/14/2016 Junito Cruz) (Ack 12:14 Fundera ER Tech1) (12:40 SRoberts R.N.) Pulse oximeter (12:08/14/2016 Junito Cruz) (12:19 SRoberts R.N.) BNP Urgent (12:37 08/14/2016 Junito Cruz) (12:40 SRoberts R.N.) (Ack 12:42 NHouse ER Tech1) CTA Thorax w Cont (No) (N/A) Urgent (13:44 08/14/2016 Junito Cruz) (Cancelled: Duplicate Order13:45 Junito Cruz) VQ Scan Urgent (13:45 08/14/2016 Junito Cruz) (Ack 13:56 NHouse ER Tech1) (20:11 SRoberts R.N.) MEDICATION ORDERS: GI Cocktail WHITE PO 30 mL (NOW) (12:10 08/14/2016 Junito Cruz) (12:44 SRoberts R.N.) GI Cocktail WHITE PO 30 mL (NOW) (16:39 08/14/2016 Junito Cruz) (Ack 16:42 SRoberts R.N.) (16:55 SRoberts R.N.) Pepcid PO 20 mg (NOW) (17:06 08/14/2016 Sathya RMargauxN. verbal order read back to Junito Cruz) (17:07 SRoberts R.N.) Tylenol PO 650 mg (NOW) (20:02 08/14/2016 Junito Cruz) (Ack 20:11 SRoberts R.N.) (20:22 SRoberts R.N.) IV FLUIDS: IV Saline Lock (12:10 08/14/2016 Junito Cruz) (12:20 SRoberts R.N.) Pepcid IV 20 mg/50mL (NOW) (16:39 08/14/2016 Junito Cruz) (Ack 16:42 SRoberts R.N.) (Cancelled: Physician Order17:06 SRoberts R.N.) Fentanyl IV 50 mcg (HIGH ALERT MEDICATION, NOW) (20:02 08/14/2016 Junito Cruz) (Ack 20:11 SRoberts R.N.) (20:22 SRoberts R.N.) ORDER SHEET NOTES: [Electronically signed by Aury English R.N. (16:59 08/15/2016)] [Electronically signed by Rashad Ortez Dr. (19:07 08/16/2016)] [Electronically locked/signed by Aury English R.N. (16:59 08/15/2016)]
--- NOTE | 2016-08-14 20:46 | ED CLINICAL REPORT ---
Clinical Report - Physicians/Mid Levels [facility] [address] [place] [address] 08/14/2016 11:46 Patient: GISSELLE WILSON Time Seen: 1149. Arrived- By ambulance. Historian- patient and EMS personnel. HISTORY OF PRESENT ILLNESS Chief Complaint: CHEST PAIN. At its maximum, severity described as severe. When seen in the E.D., severity described as mild. It is described as pressure and dull. No radiation. It is described as located in the epigastric area. This started last night and is still present but is improving. It was gradual in onset and has been constant but is not gone now. No nausea, vomiting, difficulty breathing or diaphoresis. No additional chest pain. Similar symptoms previously: None. Recent medical care: The patient was seen recently in the emergency department. REVIEW OF SYSTEMS No fever, chills or pedal edema. All systems otherwise negative, except as recorded above. PAST HISTORY See nurses notes. Medications: Atorvastatin 80mg x1 tab daily. Combigan Ophthalmic. Hydrochlorothiazide Oral 25 mg, daily. Lantanoprost Patricia 0.005% . Lantus Subcutaneous 85 units, every AM. Lisinopril Oral 40 mg, daily. Methazolamide Oral (Tablet 25 mg) 1 tablet, x2 daily. Paroxetine 40mg x2 tabs daily. Pramipexole 0.25mg x1 tab at bedtime. Ranitidine HCl Oral 150 mg, 2x a day. RisperiDONE Oral (Tablet Dispersible 0.5 mg) 1 tablet, 2x a day. Timolol Mal Patricia 0.5% OP - 1 gtt x2 daily. TraZODone HCl Oral 50 mg, 1 1/2 tab, at bedtime. Xarelto Oral (Tablet 15 mg) 1 tablet, daily. Allergies: morphine. Penicillin. Sulfa Antibiotics. SOCIAL HISTORY Never smoker. No alcohol use or drug use. No recent travel. Is a local resident. ADDITIONAL NOTES The nursing notes have been reviewed. PHYSICAL EXAM Vital Signs: 08/14/2016 12:06 BP: 169/62. HR: 73. RR: 18. O2 saturation: 95%. Temp: 98.7 F. Pain level now: 5/10. Oxygen saturation normal. Appearance: Alert. Oriented X3. No acute distress. Eyes: Pupils equal, round and reactive to light. Eyes normal inspection. No scleral icterus or pale conjunctivae. ENT: Ears normal. Nose normal. Pharynx normal. Neck: Normal inspection. Neck supple. CVS: Normal heart rate and rhythm. Heart sounds normal. Pulses normal. Respiratory: No respiratory distress. Wheezing present. Rhonchi present. Rales present. Breath sounds normal. Abdomen: Soft. Mild tenderness in the epigastric area. No organomegaly. No mass. (hyperactive bowel sounds in all 4 quadrants). Skin: Skin warm and dry. Normal skin color. No rash. Normal skin turgor. Extremities: Extremities exhibit normal ROM. No lower extremity edema. Neuro: Oriented X 3. No motor deficit. LABS, X-RAYS, AND EKG EKG: No acute ischemia. Normal sinus rhythm. Rate: 71. Normal P waves. Normal OSWALDO. Normal QRS complex. Normal axis. Normal QT. Non-specific T wave flattening in lead III. No ST elevation or depression. Chest X-ray: (PROCEDURE: XR CHEST 1 VIEW INDICATION: LOWER CHEST PAIN/EPIGASTRIC ABDOMINAL PAIN TECHNIQUE: Single view chest. 1230 hours COMPARISON: 07/18/2016 FINDINGS: The cardiopulmonary contour and central vasculature are stable, within normal limits. The lungs are clear without focal consolidation, pleural effusion or pneumothorax. The osseous structures are intact. Degenerative endplate spurring throughout the thoracic spine. IMPRESSION: 1. No acute process, stable compared to the prior study.). V/Q Scan: (PROCEDURE: NM PULMONARY PERFUSION W/VENT INDICATION: Elevated D-dimer, right-sided and central chest pain, history of smoking, quit 10 years ago. TECHNIQUE: 41.5 mCi of technetium-99m DTPA was aerosolized and inhaled. 6.1 mCi technetium-99m MAA was injected intravenously. Ventilation and perfusion images of the lungs were obtained in eight orthogonal projections. COMPARISON: 08/19/2014, Chest x-ray Performed the same day. FINDINGS: Ventilation images: Heterogeneous distribution of radiotracer throughout the lungs. There is clumping of radiotracer in the central airways. Inhaled/swallowed radiotracer is seen in the stomach. No significant ventilation defect. Improvement in upper lobe aeration is seen compared the prior study Perfusion images: Fairly homogeneous distribution of perfusion radiotracer throughout the lungs. No large perfusion defects are visible. Interval resolution of left upper and lower lobe perfusion defects previously seen. No mismatched defects of perfusion versus ventilation to suggest pulmonary embolus. IMPRESSION: 1. Low probability of pulmonary embolus. 2. Interval resolution of perfusion defects in the left lung seen previously.). The study was independently viewed by me and interpreted by the radiologist. The study was discussed with the radiologist (via pacs and phone). Laboratory Tests: UA-Culture if indicated: (NEREIDA: 08/14/2016 13:30) ( [facility] 08/14/2016 13:50) Final results Test Result Flag Units (Reference) URINE COLOR YELLOW URINE APPEARANCE SL CLOUDY URINE GLUCOSE NEGATIVE (NEGATIVE) URINE BILIRUBIN NEGATIVE (NEGATIVE) URINE KETONE NEGATIVE (NEGATIVE) URINE SPECIFIC GRAVITY 1.020 (1.010-1.030) URINE PH 8.0 (5.0-8.0) URINE PROTEIN TRACE (NEGATIVE) URINE UROBILINOGEN 0.2 EU/dL (0.2-1.0) URINE NITRITE NEGATIVE (NEGATIVE) URINE BLOOD 1+ (NEGATIVE) URINE LEUK ESTERASE NEGATIVE (NEGATIVE) URINE RBC 0-1 rbc/hpf (0-1) URINE WBC 0-1 wbc/hpf (0-1) URINE EPITHELIAL CELLS 3-5 EPI/hpf (0-5) URINE BACTERIA TRACE (<1+) (NONE SEEN) URINE COMMENT CULT NOT INDICATED URINE CULTURES ARE SET-UP BASED ON THE FOLLOWING CRITERIA:POSITIVE NITRITEPOSITIVE LEUKOCYTE ESTERASEGREATER THAN 10 WHITE BLOOD CELLSMODERATE (2+) OR GREATER BACTERIA CBC w Diff: (NEREIDA: 08/14/2016 12:30) ( [facility] 08/14/2016 12:56) Final results Test Result Flag Units (Reference) WHITE BLOOD COUNT 14.4 # H K/uL (4.5-11.5) RED BLOOD COUNT 4.79 M/uL (4.00-5.20) HEMOGLOBIN 13.2 gm/dL (12.0-16.0) HEMATOCRIT 39.3 % (36.0-46.0) MEAN CELL VOLUME 82 fL (80-100) MEAN CORPUSCULAR HGB 28 pg (26-34) MEAN CORPUSCULAR HGB CONC 34 g/dL (31-37) RED CELL DISTRIBUTION WIDTH 13.3 % (11.6-14.8) PLATELET COUNT 136 L K/uL (150-400) NEUTROPHIL % 85.0 H % (50-75) LYMPH % 8.9 L % (25-40) MONO % 5.0 % (3-14) EOSINOPHIL % 0.9 % (0-4) BASOPHIL % 0.2 % (0-2) PT with INR: (NEREIDA: 08/14/2016 12:30) ( [facility] [place] 08/14/2016 13:15) Final results Test Result Flag Units (Reference) INR 1.0 (0.8-1.2) Low Intensity Therapy: INR 1.5-2.0 PT range 18.5-23.1Mod.Intensity Therapy: INR 2.0-3.0 PT range 23.1-31.5High Intensity Therapy: INR 2.5-3.5 PT range 27.4-35.5High Intensity Therapy 2: INR 3.0-4.0 PT range 31.5-39.3 D-DIMER QUANTITATIVE 0.77 H ug/mLFEU (0.27-0.52) The primary value of this quantitative assay relates toits negative predictive value (i.e. exclusion) of pulmonaryembolism/deep vein thrombosis/DIC.Elevated levels of d-dimer may also occur with:, age, cancer, inflammation, liver disease,post-op, infection, hematoma, coronary disease, peripheralarteriopathy, bleeding disorders and thrombolytic treatment.Results should be correlated with other clinical andradiological data.Testing Methodology: Latex Immunoassay BNP: (NEREIDA: 08/14/2016 12:30) ( [facility] [place] 08/14/2016 13:14) Final results Test Result Flag Units (Reference) B-TYPE NATRIURETIC PEPTIDE 29.9 pg/ml (5-100) CMP: (NEREIDA: 08/14/2016 12:30) ( [facility] 08/14/2016 13:21) Final results Test Result Flag Units (Reference) GLUCOSE 56 L mg/dL (70-110) BUN 27 H mg/dL (7-18) CREATININE 1.5 H mg/dL (0.6-1.3) Estimated GFR 36.59 mL/min Estimated GFR- 44.35 mL/min Note: Persistent reduction over 3 months in eGFR<60 mL/min/1.73 m2 defines CKD. Patients with eGFR values>=60 mL/min/1.73 m2 may also have CKD if evidence ofpersistent proteinuria. Additional information may be foundat www.kidney.org. SODIUM 142 mmol/L (136-145) POTASSIUM 4.2 mmol/L (3.5-5.1) CHLORIDE 104 mmol/L (98-107) CARBON DIOXIDE 30 mmol/L (21-32) CALCIUM 8.6 mg/dL (8.5-10.1) TOTAL PROTEIN 7.0 g/dL (6.4-8.2) ALBUMIN 3.3 g/dL (3.3-5.0) BILIRUBIN, TOTAL 0.5 mg/dL (0.0-1.0) ALKALINE PHOSPHATASE 60 U/L (46-116) AST (SGOT) 20 U/L (15-37) ALT (SGPT) 18 U/L (12-78) LIPASE 107 U/L (73-393) TROPONIN I 0.05 ng/mL (0.00-1.5) TROPONIN REFERENCE RANGE:<0.1 NEGATIVE0.1-1.5 INDETERMINANT>1.5 POSITIVE . PROGRESS AND PROCEDURES Course of Care: the patient is a pleasant 71-year-old female presented for evaluation of epigastric abdominal pain. Per EMS, patient was having chest pain as well. Would be concern for possible atypical presentation of acute myocardial infarction. With this also reported chest pain, patient will be evaluated for pulmonary embolism. Patient be given a trial of a GI cocktail as well for the discomfort. By the time I had seen the patient, her pain already started to improve. Patient reports that she's been burping at home and took some baking soda to help with the potential acid. Patient is agreeable to the treatment plan. Patient is resting in bed and in no acute distress. GI cocktail was provided. Patient was reevaluated after the GI cocktail as provided. Patient had complete resolution of her pain. GI source of the patient's discomfort is favored at this time. Troponin is noted to be negative however patient's d-dimer is elevated at 0.77. Had a discussion with the patient in regards to workup with the elevated d-dimer. Patient is agreeable to the treatment plan. Unfortunately we are unable to provide the patient with a CTA because of the contrast and potential for contrast-induced nephropathy. Patient's GFR is noted to be about half normal. Because of this, patient will instead be evaluated with a VQ scan. Unfortunately, we'll need to call a tech in and thenuclear medicine will need to the transported from [place] which is approximately an hour away. Alondra be performed at approximately 5 to 6:00 this afternoon. Patient was updated on the plan of care and is agreeable to this. A dinner tray has been ordered. Patient was also provided snacks and beverages while here in the emergency department. Patient is currently resting in bed in no acute distress. Patient is watching TV and appears to be comfortable. VQ scan is noted to be low probability for pulmonary embolism. Because the patient's second workup here in emergency department, do not feel patient needs to be admitted to the hospital require further emergency department workup/evaluation. Outpatient cardiol to follow up recommended because of the patient's discomfort however again most likely fill the patient's discomfort is gastrointestinal in etiology. Patient is a good outpatient candidate. Had discussion with the patient in regards to her workup here in the emergency department as well as her home care, follow-up, and return precautions. All questions have been answered. The patient expressed understanding of these instructions and was agreeable to them. Disposition: Discharged. Condition: good. CLINICAL IMPRESSION 08/14/2016 16:30 BP: 170/79. HR: 88. RR: 18. O2 saturation: 96%. Pain level now: 5/10. Acute epigastric abdominal pain. Oxygen saturation normal. Atypical chest pain .12 lead EKG performed. (acute). Acute gastritis Essential hypertension. INSTRUCTIONS Warnings: GENERAL WARNINGS: Return or contact your physician immediately if your condition worsens or changes unexpectedly, if not improving as expected, or if other problems arise. SPECIFICALLY, return if you develop chest, neck, jaw, shoulder, arm, or back pain, difficulty breathing, a fluttering sensation in your chest, lightheadedness, fainting, excessive fatigue, or sudden sweating. Your Current Medications: CONTINUE TAKING THE FOLLOWING MEDICATIONS: Atorvastatin 80mg x1 tab daily*. Combigan Ophthalmic. Hydrochlorothiazide Oral : 25 mg daily. Lantanoprost Patricia 0.005% *. Lantus Subcutaneous : 85 units every AM. Lisinopril Oral : 40 mg daily. Methazolamide Oral : Tablet 25 mg, 1 tablet x2 daily. Paroxetine 40mg x2 tabs daily*. Pramipexole 0.25mg x1 tab at bedtime*. Ranitidine HCl Oral : 150 mg 2x a day. RisperiDONE Oral : Tablet Dispersible 0.5 mg, 1 tablet 2x a day. Timolol Mal Patricia 0.5% OP - 1 gtt x2 daily*. TraZODone HCl Oral : 50 mg, 1 1/2 tab at bedtime. Xarelto Oral : Tablet 15 mg, 1 tablet daily. Prescription Medications: Pepcid 20 mg: take 1 orally every 12 hours for 10 days as needed for indigestion, upset stomach or heartburn. Dispense twenty (20). No refills. Substitution is permissible. Follow-up: Return to the emergency department as needed. Follow up with your doctor in three days. Reason for referral: recheck today's concerns. Summary of care provided to patient via paper. Screening today revealed the patient's blood pressure to be in the hypertensive range. Blood pressure screening was not performed during this visit because the patient has an active diagnosis of hypertension. The patient should follow up with a primary care provider for blood pressure management. Understanding of the discharge instructions verbalized by patient. (Electronically signed by Rashad Ortez Dr. 08/16/2016 19:07)
--- NOTE | 2016-08-14 20:46 | ED NURSING NOTES ---
Clinical Report - Nurses [facility] [address] [place] [address] 08/14/2016 11:46 Patient: GISSELLE WILSON TRIAGE Triage time 12:06. Acuity: LEVEL 2. Chief Complaint: CHEST PAIN and UPPER ABDOMINAL PAIN and INDIGESTION (diarrhea started in the middle of the night.). Alert. No acute distress. SEPSIS SCREEN: Sepsis Screen: negative. Negative (no infection suspected/documented). --12:18 Rola Butt R.N. 12:08/14/16. BP: 169/62. HR: 73. RR: 18. O2 saturation: 95%. Temp: 98.7 F. Pain level now: 5/10. --12:18 Rola Butt R.N. 12:08/14/16. BP: 169/62. HR: 73. RR: 18. O2 saturation: 95%. Temp: 98.7 F. Pain level now: 5/10. --12:18 Rola Butt R.N. Weight: 90.7 kg stated. Height/Length: 66 inches Per Patient. BMI: 32.3. --12:13 Rola Butt R.N. Medications Atorvastatin 80mg x1 tab daily. Combigan Ophthalmic. Hydrochlorothiazide Oral 25 mg, daily. Lantanoprost Patricia 0.005% . Lantus Subcutaneous 85 units, every AM. Lisinopril Oral 40 mg, daily. Methazolamide Oral (Tablet 25 mg) 1 tablet, x2 daily. Paroxetine 40mg x2 tabs daily. Pramipexole 0.25mg x1 tab at bedtime. Ranitidine HCl Oral 150 mg, 2x a day. RisperiDONE Oral (Tablet Dispersible 0.5 mg) 1 tablet, 2x a day. Timolol Mal Patricia 0.5% OP - 1 gtt x2 daily. TraZODone HCl Oral 50 mg, 1 1/2 tab, at bedtime. Xarelto Oral (Tablet 15 mg) 1 tablet, daily. --12:11 Rola Butt R.N. Medication/allergy information source: the patient. --12:18 Rola Butt R.N. Allergies morphine. Penicillin. Sulfa Antibiotics. --12:11 Rola Butt R.N. History Arrived by EMS. Historian: patient. Primary physician (sharon). This started last night. She has had difficulty breathing. Reports experiencing sweating episodes. No nausea, vomiting or cough. Treatment INSOLE REINFORCER: EMS treatment INSOLE REINFORCER verbally communicated. See EMS report. Pre-hospital 12-lead EKG. Medications given- ASA, Fentanyl IVP and nitroglycerin x2. BP: 190 / 90. HR: 88. RR: 18. O2 saturation: 98 % room air. PAST MEDICAL HX: Immunizations: status is unknown. The patient is post-menopausal. SOCIAL HX: Smoker- current status unknown. History of drug use: marijuana. Recently used drugs yesterday. No alcohol use. FALL RISK ASSESSMENT: Fall risk assessment completed. No fall risk identified. NUTRITIONAL RISK ASSESSMENT: The nutritional risk assessment revealed no deficiencies. FUNCTIONAL ASSESSMENT: Functional assessment: no impairments noted. LEARNING NEEDS ASSESSMENT: The learning needs assessment revealed no barriers. SKIN INTEGRITY ASSESSMENT: Skin integrity risk assessment completed. No skin integrity risk identified. DEANDRA COMA SCORE: [place] Coma Scale: 15- eyes open spontaneously (4); best verbal response- oriented x 4 (5); best motor response- obeys commands (6). --12:18 Rola Butt R.N. PROBLEMS: Benign Positional Vertigo. Weakness. Hypertension. Hypoxia. Influenza. Hypoglycemia. MRSA Infection. Dyspnea. UTI - Urinary Tract Infection. DVT - Deep Venous Thrombosis. Renal Insufficiency. Bronchitis. Blindness. Wound Infection. TIA - Transient Ischemic Attack. Concussion. Abrasion(s). Fall. Colon Cancer. Tetanus Status. Vomiting. Abdominal Pain. Immunizations. LNMP - Last Normal Menstrual Period. Myofascial Strain. Contusion. Anxiety Reaction. Arthritis. Back Pain. Coronary Artery Disease. Cataracts. CVA - Cerebrovascular Accident. Depression. Diabetes Mellitus. Hyperlipidemia. Peripheral Vascular Disease. Gastroesophageal Reflux Disease. --12:15 Rola Butt R.N. ADDITIONAL SURGERIES: Abdominal Aortic Aneurysm Repair. Appendectomy. Colostomy. Colostomy takedown . Tonsillectomy. --12:15 Rola Butt R.N. Interventions ID band on patient. To room. --12:18 Rola Butt R.N. 11:54 08/14/2016 Site #1 started prior to arrival by EMS via IV in the right antecubital space with an 20g angiocath; one attempt. Saline lock flushed with saline. --12:09 Rola Butt R.N. PHYSICAL ASSESSMENT To room via stretcher. Patient gowned. GENERAL / NEURO / PSYCH: Alert. Oriented X 4. Appears in pain and anxious. HEENT: Mucous membranes are pink. RESPIRATORY: Respirations not labored. CVS: Pulses within normal limits. Capillary refill less than 2 seconds. GI / : Abdomen nontender. EXTREMITIES: No lower extremity edema. SKIN: Skin is warm and dry. Normal skin turgor. Skin is non-tender. --12:19 Rola Butt R.N. NURSING PROGRESS NOTES Patient gowned. Head of bed elevated. Call light placed in reach. Side rails up x 2. Bed placed in lowest position. Brakes of bed on. Patient ready for evaluation. --12:19 Rola Butt R.N. EKG time: (1206). EKG was ordered, performed by a tech and shown to the ED physician. --12:19 Leida Chester 12:44 08/14/2016 maalox * PO 30 --12:44 Rola Butt R.N. 12:45 08/14/2016 lidocaine viscous * PO 20 --12:45 Rola Butt R.N. 13:35 08/14/16. Patient ID band checked for patient name: patient confirmed. Instructions provided to collect clean catch urine and patient verbalized understanding. Catheterized urine collected with return of yellow-colored clear urine; sample sent to lab for urinalysis and culture. Specimen labeled in the presence of the patient (fem cath). --13:35 Rola Butt R.N. 13:36 08/14/16. BP: 168/79. HR: 78. RR: 16. O2 saturation: 100% on room air. Pain level now: 0/10. --13:36 Rola Butt R.N. 15:22 08/14/16. BP: 164/64 taken while lying. HR: 79. RR: 16. O2 saturation: 95% on room air. --15:24 Rola Butt R.N. 16:55 08/14/2016 maalox * Opth soln 30mg --16:55 Rola Butt R.N. 16:55 08/14/2016 lido viscous * PO 20 --16:59 Rola Butt R.N. ( Patient ate 100% of her dinner.). --17:03 Leida Chester 17:07 08/14/2016 Pepcid (Famotidine) PO 20 mg given. Allergies verified and confirmed 5 rights. --17:07 Rola Butt R.N. Patient transported. ([facility] dept, for VQ scan.). --18:22 Rola Butt R.N. ( patient has been transported back to the ER from [facility] by [employer] tech reports patient is complaining of pain.). --19:37 Breanna Sullivan 19:42 08/14/16. BP: 150/55 (regular adult cuff) taken on the left arm, via an automated monitor, while lying. HR: 78. RR: 16 (regular). O2 saturation: 94% on room air. Temp: 100.9 F. Pain level now: 12/20. Additional comments: Patient states pain is in mid back "like i've been bending over for too long" . --19:44 Breanna Sullivan 20:22 08/14/2016 Tylenol (Acetaminophen) PO 650 mg given. Allergies verified and confirmed 5 rights. --20:22 Rola Butt R.N. 20:22 08/14/2016 Fentanyl IVP 50 mcg given over 1 minute(s) via site #1. Allergies verified, confirmed 5 rights and sedative warning given to the patient. IV patency established. IV site checked: no pain, redness, or swelling. IV flushed thoroughly pre- and post-medication administration. IVP given by RN. --20:22 Rola Butt R.N. ( Assisted up to the bedside commode and back to bed, voided w/o difficulty. Weepy, can't remember daughters phone number. I left a voice message re dc home about 1.5 hrs ago.. No return call from daughter yet. Patient has a roommate, but no vehicle.). --22:26 Rola Butt R.N. Care transferred and report given (PEDRO Jeffers). --22:27 Rola Butt R.N. ( Call placed to [facility] for transfer to home. Awaiting ride.). --22:28 Rola Butt R.N. The patient is calm and resting quietly. Overall patient status is improved- she states feels better. --22:36 Aury English R.N. 22:35 08/14/16. BP: 123/48. HR: 67. RR: 12. O2 saturation: 94%. Pain level now: 0/10. --22:36 Aury English R.N. DISPOSITION / DISCHARGE 22:57 08/14/2016 Site #1 removed upon discharge. Bandage applied. --22:57 Aury English R.N. 22:57 08/14/16. BP: 108/49. HR: 69. RR: 16. O2 saturation: 97%. Pain level now: 0/10. --22:57 Aury English R.N. Departure time: 23:13 Aug 14 2016. Condition at departure: improved. No learning barriers present. Discharge instructions provided and reviewed with the patient. Reviewed medication(s) side effects, precautions, dosing and course information. Prescription(s) given to the patient. Reviewed referral to a primary care physician for followup. Patient verbalized understanding. Written instructions provided in [place]. The patient was discharged home. She left the Emergency Department in a wheelchair and via ([employer]). FALL RISK ASSESSMENT: Fall risk assessment completed. No fall risk identified. --23:13 Aury English R.N. Locked/Released at 08/15/2016 16:59 by Aury English R.N.
--- NOTE | 2016-08-14 20:46 | ED NURSING NOTES ---
Clinical Report - Nurses [facility] [address] [place] [address] 08/14/2016 11:46 Patient: GISSELLE WILSON TRIAGE Triage time 12:06. Acuity: LEVEL 2. Chief Complaint: CHEST PAIN and UPPER ABDOMINAL PAIN and INDIGESTION (diarrhea started in the middle of the night.). Alert. No acute distress. SEPSIS SCREEN: Sepsis Screen: negative. Negative (no infection suspected/documented). --12:18 Rola Butt R.N. 12:08/14/16. BP: 169/62. HR: 73. RR: 18. O2 saturation: 95%. Temp: 98.7 F. Pain level now: 5/10. --12:18 Rola Butt R.N. 12:08/14/16. BP: 169/62. HR: 73. RR: 18. O2 saturation: 95%. Temp: 98.7 F. Pain level now: 5/10. --12:18 Rola Butt R.N. Weight: 90.7 kg stated. Height/Length: 66 inches Per Patient. BMI: 32.3. --12:13 Rola Butt R.N. Medications Atorvastatin 80mg x1 tab daily. Combigan Ophthalmic. Hydrochlorothiazide Oral 25 mg, daily. Lantanoprost Patricia 0.005% . Lantus Subcutaneous 85 units, every AM. Lisinopril Oral 40 mg, daily. Methazolamide Oral (Tablet 25 mg) 1 tablet, x2 daily. Paroxetine 40mg x2 tabs daily. Pramipexole 0.25mg x1 tab at bedtime. Ranitidine HCl Oral 150 mg, 2x a day. RisperiDONE Oral (Tablet Dispersible 0.5 mg) 1 tablet, 2x a day. Timolol Mal Patricia 0.5% OP - 1 gtt x2 daily. TraZODone HCl Oral 50 mg, 1 1/2 tab, at bedtime. Xarelto Oral (Tablet 15 mg) 1 tablet, daily. --12:11 Rola Butt R.N. Medication/allergy information source: the patient. --12:18 Rola Butt R.N. Allergies morphine. Penicillin. Sulfa Antibiotics. --12:11 Rola Butt R.N. History Arrived by EMS. Historian: patient. Primary physician (sharon). This started last night. She has had difficulty breathing. Reports experiencing sweating episodes. No nausea, vomiting or cough. Treatment DANCE COSTUME DESIGNER: EMS treatment DANCE COSTUME DESIGNER verbally communicated. See EMS report. Pre-hospital 12-lead EKG. Medications given- ASA, Fentanyl IVP and nitroglycerin x2. BP: 190 / 90. HR: 88. RR: 18. O2 saturation: 98 % room air. PAST MEDICAL HX: Immunizations: status is unknown. The patient is post-menopausal. SOCIAL HX: Smoker- current status unknown. History of drug use: marijuana. Recently used drugs yesterday. No alcohol use. FALL RISK ASSESSMENT: Fall risk assessment completed. No fall risk identified. NUTRITIONAL RISK ASSESSMENT: The nutritional risk assessment revealed no deficiencies. FUNCTIONAL ASSESSMENT: Functional assessment: no impairments noted. LEARNING NEEDS ASSESSMENT: The learning needs assessment revealed no barriers. SKIN INTEGRITY ASSESSMENT: Skin integrity risk assessment completed. No skin integrity risk identified. DEANDRA COMA SCORE: [place] Coma Scale: 15- eyes open spontaneously (4); best verbal response- oriented x 4 (5); best motor response- obeys commands (6). --12:18 Rola Butt R.N. PROBLEMS: Benign Positional Vertigo. Weakness. Hypertension. Hypoxia. Influenza. Hypoglycemia. MRSA Infection. Dyspnea. UTI - Urinary Tract Infection. DVT - Deep Venous Thrombosis. Renal Insufficiency. Bronchitis. Blindness. Wound Infection. TIA - Transient Ischemic Attack. Concussion. Abrasion(s). Fall. Colon Cancer. Tetanus Status. Vomiting. Abdominal Pain. Immunizations. LNMP - Last Normal Menstrual Period. Myofascial Strain. Contusion. Anxiety Reaction. Arthritis. Back Pain. Coronary Artery Disease. Cataracts. CVA - Cerebrovascular Accident. Depression. Diabetes Mellitus. Hyperlipidemia. Peripheral Vascular Disease. Gastroesophageal Reflux Disease. --12:15 Rola Butt R.N. ADDITIONAL SURGERIES: Abdominal Aortic Aneurysm Repair. Appendectomy. Colostomy. Colostomy takedown . Tonsillectomy. --12:15 Rola Butt R.N. Interventions ID band on patient. To room. --12:18 Rola Butt R.N. 11:54 08/14/2016 Site #1 started prior to arrival by EMS via IV in the right antecubital space with an 20g angiocath; one attempt. Saline lock flushed with saline. --12:09 Rola Butt R.N. PHYSICAL ASSESSMENT To room via stretcher. Patient gowned. GENERAL / NEURO / PSYCH: Alert. Oriented X 4. Appears in pain and anxious. HEENT: Mucous membranes are pink. RESPIRATORY: Respirations not labored. CVS: Pulses within normal limits. Capillary refill less than 2 seconds. GI / : Abdomen nontender. EXTREMITIES: No lower extremity edema. SKIN: Skin is warm and dry. Normal skin turgor. Skin is non-tender. --12:19 Rola Butt R.N. NURSING PROGRESS NOTES Patient gowned. Head of bed elevated. Call light placed in reach. Side rails up x 2. Bed placed in lowest position. Brakes of bed on. Patient ready for evaluation. --12:19 Rola Butt R.N. EKG time: (1206). EKG was ordered, performed by a tech and shown to the ED physician. --12:19 Leida Chester 12:44 08/14/2016 maalox * PO 30 --12:44 Rola Butt R.N. 12:45 08/14/2016 lidocaine viscous * PO 20 --12:45 Rola Butt R.N. 13:35 08/14/16. Patient ID band checked for patient name: patient confirmed. Instructions provided to collect clean catch urine and patient verbalized understanding. Catheterized urine collected with return of yellow-colored clear urine; sample sent to lab for urinalysis and culture. Specimen labeled in the presence of the patient (fem cath). --13:35 Rola Butt R.N. 13:36 08/14/16. BP: 168/79. HR: 78. RR: 16. O2 saturation: 100% on room air. Pain level now: 0/10. --13:36 Rola Butt R.N. 15:22 08/14/16. BP: 164/64 taken while lying. HR: 79. RR: 16. O2 saturation: 95% on room air. --15:24 Rola Butt R.N. 16:55 08/14/2016 maalox * Opth soln 30mg --16:55 Rola Butt R.N. 16:55 08/14/2016 lido viscous * PO 20 --16:59 Rola Butt R.N. ( Patient ate 100% of her dinner.). --17:03 Leida Chester 17:07 08/14/2016 Pepcid (Famotidine) PO 20 mg given. Allergies verified and confirmed 5 rights. --17:07 Rola Butt R.N. Patient transported. ([facility] dept, for VQ scan.). --18:22 Rola Butt R.N. ( patient has been transported back to the ER from [facility] by [employer]. tech reports patient is complaining of pain.). --19:37 Breanna Sullivan 19:42 08/14/16. BP: 150/55 (regular adult cuff) taken on the left arm, via an automated monitor, while lying. HR: 78. RR: 16 (regular). O2 saturation: 94% on room air. Temp: 100.9 F. Pain level now: 12/20. Additional comments: Patient states pain is in mid back "like i've been bending over for too long" . --19:44 Breanna Sullivan 20:22 08/14/2016 Tylenol (Acetaminophen) PO 650 mg given. Allergies verified and confirmed 5 rights. --20:22 Rola Butt R.N. 20:22 08/14/2016 Fentanyl IVP 50 mcg given over 1 minute(s) via site #1. Allergies verified, confirmed 5 rights and sedative warning given to the patient. IV patency established. IV site checked: no pain, redness, or swelling. IV flushed thoroughly pre- and post-medication administration. IVP given by RN. --20:22 Rola Butt R.N. ( Assisted up to the bedside commode and back to bed, voided w/o difficulty. Weepy, can't remember daughters phone number. I left a voice message re dc home about 1.5 hrs ago.. No return call from daughter yet. Patient has a roommate, but no vehicle.). --22:26 Rola Butt R.N. Care transferred and report given (PEDRO Jeffers). --22:27 Rola Butt R.N. ( Call placed to [facility] for transfer to home. Awaiting ride.). --22:28 Rola Butt R.N. The patient is calm and resting quietly. Overall patient status is improved- she states feels better. --22:36 Aury English R.N. 22:35 08/14/16. BP: 123/48. HR: 67. RR: 12. O2 saturation: 94%. Pain level now: 0/10. --22:36 Aury English R.N. DISPOSITION / DISCHARGE 22:57 08/14/2016 Site #1 removed upon discharge. Bandage applied. --22:57 Aury English R.N. 22:57 08/14/16. BP: 108/49. HR: 69. RR: 16. O2 saturation: 97%. Pain level now: 0/10. --22:57 Aury English R.N. Departure time: 23:13 Aug 14 2016. Condition at departure: improved. No learning barriers present. Discharge instructions provided and reviewed with the patient. Reviewed medication(s) side effects, precautions, dosing and course information. Prescription(s) given to the patient. Reviewed referral to a primary care physician for followup. Patient verbalized understanding. Written instructions provided in [place]. The patient was discharged home. She left the Emergency Department in a wheelchair and via ([email or web address]). FALL RISK ASSESSMENT: Fall risk assessment completed. No fall risk identified. --23:13 Aury English R.N. Locked/Released at 08/15/2016 16:59 by Aury English R.N.
--- NOTE | 2016-08-16 19:07 | ED MED RECONCILIATION SUMMARY ---
Patient: GISSELLE WILSON Medication Reconciliation Report [facility] VisitID: [id number] [address] [place] [address] 71y, F Registration Date/Time: 08/14/2016 Weight: 90.7 kg Height/Length: 66 in. BMI: 32.3 ALLERGIES: morphine, Penicillin, Sulfa Antibiotics The patient's Home Medications are listed below: CONTINUE TAKING THE FOLLOWING MEDICATIONS: Atorvastatin 80mg x1 tab daily Combigan Ophthalmic Hydrochlorothiazide Oral 25 mg, daily Lantanoprost Patricia 0.005% Lantus Subcutaneous 85 units, every AM Lisinopril Oral 40 mg, daily Methazolamide Oral (25 mg) 1 tablet, x2 daily Paroxetine 40mg x2 tabs daily Pramipexole 0.25mg x1 tab at bedtime Ranitidine HCl Oral 150 mg, 2x a day RisperiDONE Oral (0.5 mg) 1 tablet, 2x a day Timolol Mal Patricia 0.5% OP - 1 gtt x2 daily TraZODone HCl Oral 50 mg, 1 1/2 tab, at bedtime Xarelto Oral (15 mg) 1 tablet, daily The source(s) of the original Home Medication information: patient The following Medications were given to the patient in the Emergency Department: maalox PO 30, administered: 08/14/2016 12:44:00 PM lidocaine viscous PO 20, administered: 08/14/2016 12:45:00 PM maalox Opth soln 30mg, administered: 08/14/2016 4:55:00 PM lido viscous PO 20, administered: 08/14/2016 4:55:00 PM Pepcid [PO] PO 20 mg, administered: 08/14/2016 5:07:00 PM Tylenol [PO] PO 650 mg, administered: 08/14/2016 8:22:00 PM Fentanyl [IVP] IVP 50 mcg, administered: 08/14/2016 8:22:00 PM The following Medications were prescribed to the patient: Pepcid 20 mg: take 1 orally every 12 hours for 10 days as needed for indigestion, upset stomach or heartburn. Dispense twenty (20). No refills. Substitution is permissible. -- Rashad Ortez Dr.
--- NOTE | 2016-08-16 19:07 | ED MAR SUMMARY ---
..... Medication Administration Record [facility] [address], [place] [address] Patient: GISSELLE WILSON Visit ID: [id number] 71y, F Weight: 90.7 kg Height/Length: 66 in BMI: 32.3 ALLERGIES: morphine, Penicillin, Sulfa Antibiotics Given 12:44 08/14/2016 Rola Butt R.N. Medication Administered: maalox *, Dose: 30 * PO. Medication Ordered: GI Cocktail WHITE PO 30 mL (NOW). Given 12:45 08/14/2016 Rola Butt R.N. Medication Administered: lidocaine viscous *, Dose: 20 * PO. Medication Ordered: GI Cocktail WHITE PO 30 mL (NOW). Given 16:08/14/2016 Rola Butt R.N. Medication Administered: maalox *, Dose: 30mg * Opth soln. Medication Ordered: GI Cocktail WHITE PO 30 mL (NOW). Given 16:08/14/2016 Rola Butt R.N. Medication Administered: lido viscous *, Dose: 20 * PO. Medication Ordered: GI Cocktail WHITE PO 30 mL (NOW). Given 17:07 08/14/2016 Rola Butt R.N. Medication Administered: PEPCID [PO] (FAMOTIDINE), Dose: 20 mg PO. Medication Ordered: Pepcid PO 20 mg (NOW). Given :08/14/2016 Rola Butt R.N. Medication Administered: TYLENOL [PO] (ACETAMINOPHEN), Dose: 650 mg PO. Medication Ordered: Tylenol PO 650 mg (NOW). Given :08/14/2016 Rola Butt R.N. Medication Administered: FENTANYL [IVP], Dose: 50 mcg IVP over 1 minute(s), Site: #1 right AC. Medication Ordered: Fentanyl IV 50 mcg (HIGH ALERT MEDICATION, NOW).
--- NOTE | 2016-08-16 19:07 | ED DISCHARGE INSTRUCTIONS ---
Patient: GISSELLE WILSON General Instructions [facility] VisitID: [id number] [place] [address] 71y, F Registration Date/Time: 08/14/2016 08/14/2016 16:30 BP: 170/79. HR: 88. RR: 18. O2 saturation: 96%. Pain level now: 5/10. Acute epigastric abdominal pain. Oxygen saturation normal. Atypical chest pain .12 lead EKG performed. (acute). Acute gastritis Essential hypertension. INSTRUCTIONS Warnings: GENERAL WARNINGS: Return or contact your physician immediately if your condition worsens or changes unexpectedly, if not improving as expected, or if other problems arise. SPECIFICALLY, return if you develop chest, neck, jaw, shoulder, arm, or back pain, difficulty breathing, a fluttering sensation in your chest, lightheadedness, fainting, excessive fatigue, or sudden sweating. Your Current Medications: CONTINUE TAKING THE FOLLOWING MEDICATIONS: Atorvastatin 80mg x1 tab daily*. Combigan Ophthalmic. Hydrochlorothiazide Oral : 25 mg daily. Lantanoprost Patricia 0.005% *. Lantus Subcutaneous : 85 units every AM. Lisinopril Oral : 40 mg daily. Methazolamide Oral : Tablet 25 mg, 1 tablet x2 daily. Paroxetine 40mg x2 tabs daily*. Pramipexole 0.25mg x1 tab at bedtime*. Ranitidine HCl Oral : 150 mg 2x a day. RisperiDONE Oral : Tablet Dispersible 0.5 mg, 1 tablet 2x a day. Timolol Mal Patricia 0.5% OP - 1 gtt x2 daily*. TraZODone HCl Oral : 50 mg, 1 1/2 tab at bedtime. Xarelto Oral : Tablet 15 mg, 1 tablet daily. Prescription Medications: Pepcid 20 mg: take 1 orally every 12 hours for 10 days as needed for indigestion, upset stomach or heartburn. Dispense twenty (20). No refills. Substitution is permissible. Follow-up: Return to the emergency department as needed. Follow up with your doctor in three days. Reason for referral: recheck today's concerns. Summary of care provided to patient via paper. Screening today revealed the patient's blood pressure to be in the hypertensive range. Blood pressure screening was not performed during this visit because the patient has an active diagnosis of hypertension. The patient should follow up with a primary care provider for blood pressure management. Understanding of the discharge instructions verbalized by patient. ADDITIONAL INFORMATION Chest Pain, Uncertain Cause Chest pain can happen for a number of reasons. Sometimes the cause can not be determined. If yourcondition does not seem serious, and your pain does not appear to be coming from your heart, your doctor may recommend watching it closely. Sometimes the signs of a serious problem take more time to appear. Therefore, watch for the warning signs listed below. Home care After your visit, follow these recommendations: Rest today and avoid strenuous activity. Take any prescribed medicine as directed. Follow-up care Follow up with your doctor or this facility as instructed or if you do not start to feel better within 24 hours. Call 911 Get immediate medical attention if any of the following occur: A change in the type of pain: if it feels different, becomes more severe, lasts longer, or begins to spread into your shoulder, arm, neck, jaw or back Shortness of breath or increased pain with breathing Weakness, dizziness, or fainting Rapid heart beat Get prompt medical attention Call your doctor right away if any of the following occur: Cough with dark colored sputum (phlegm) or blood Fever of 100.4F(38C) or higher, or as directed by your health care provider Swelling, pain or redness in one leg High Blood Pressure --Established High Blood Pressure (Hypertension) is a chronic disease. The cause is unknown in most cases. It can usually be controlled with lifestyle changes and/or medicines. Symptoms of high blood pressure may include headache, dizziness, visual changes, chest pain and shortness of breath. Sometimes it causes no symptoms at all. However, even if there are no symptoms, untreated high blood pressure increases the risk of heart attack, also known as acute myocardial infarction, or AMI, and stroke. It is a serious health risk and should not be ignored. A normal blood pressure is 120/80 or less. The first (top) number is the "systolic" pressure. The second (bottom) number is the "diastolic" pressure. Hypertension exists when either the top number is 140 or higher, OR the bottom number is 90 or higher on repeated measurements. Home Care: All patients with high blood pressure should do the following to lower their pressure. If you are on medicines, then these methods may reduce or eliminate your need for medicines in the future. Begin a weight loss program if you are overweight. Reduce your salt intake. Avoid high salt foods (olives, pickles, smoked meats, salted potato chips, etc.). Do not add salt to your food at the table. Use only small amounts of salt when cooking. Begin an exercise program. Discuss with your doctor what type of exercise program would be best for you. It doesn't have to be difficult. Even brisk walking for 20 minutes three times a week is a good form of exercise. Avoid medicines which contain heart stimulants. This includes many cold and sinus decongestant pills and sprays as well as diet pills. Check the warnings about hypertension on the label. Stimulants such as amphetamine or cocaine could be lethal for someone with hypertension. Never take these. Limit your caffeine intake or switch to caffeine-free products. Stop smoking. If you are a long-time smoker, this can be hard. Enroll in a stop-smoking program to improve your chance of success. Learning how to handle stress better is an important part of any program to lower blood pressure. Learn about relaxation methods such as meditation, yoga or biofeedback. If medicines were prescribed, take them exactly as directed. Missing doses may cause your blood pressure get out of control. Consider buying an automatic blood pressure machine (available at most pharmacies). Use this to monitor your blood pressure at home and report the results to your doctor. Follow Up: Regular visits to your own physician for blood pressure checks and medicine adjustment is an important part of your care. Make a follow-up appointment as directed by our staff. Get Prompt Medical Attention if any of the following occur: Chest pain or shortness of breath Severe headache Throbbing or rushing sound in the ears Nosebleed Sudden severe abdominal pain Extreme drowsiness, confusion or fainting Dizziness or vertigo (dizziness with spinning sensation) Weakness of an arm or leg or one side of the face Difficulty with speech or vision Abdominal Pain, Unknown Cause (Female) The exact cause of your abdominal (stomach) pain is not certain. This does not mean that this is something to worry about, or the right tests were not done. Everyone likes to know the exact cause of the problem, but sometimes with abdominal pain, there is no clear-cut cause, and this could be a good thing. The good news is that your symptoms can be treated, and you will feel better. Your condition does not seem serious now; however, sometimes the signs of a serious problem may take more time to appear. For this reason,it is important for you to watch for any new symptoms, problems,or worsening of your condition. Over the next few days, the abdominal pain may come and go, or be continuous. Other common symptoms can include nausea and vomiting. Sometimes it can be difficult to tell if you feel nauseous, you may just feel bad and not associate that feeling with nausea. Constipation, diarrhea, and a fever may go along with the pain. The pain may continue even if treated correctly over the following days. Depending on how things go, sometimes the cause can become clear and may require further or different treatment. Additional evaluations, medications, or tests may be needed. Home care Your health care provider may prescribe medications for pain, symptoms, or an infection. Follow the health care provider's instructions for taking these medications. General care Rest until your next exam. No strenuous activities. Try to find positions that ease discomfort. A small pillow placed on the abdomen may help relieve pain. Something warm on your abdomen (such as a heating pad) may help, but be careful not to burn yourself. Diet Do not force yourself to eat, especially if having cramps, vomiting, or diarrhea. Water is important so you do not get dehydrated. Soup may also be good. Sports drinks may also help, especially if they are not too acidic. Make sure you don't drink sugary drinks as this can make things worse. Take liquids in small amounts. Do not guzzle them. Caffeine sometimes makes the pain and cramping worse. Avoid dairy products if you have vomiting or diarrhea. Don't eat large amounts at a time. Wait a few minutes between bites. Eat a diet low in fiber (called a low-residue diet). Foods allowed include refined breads, white rice, fruit and vegetable juices without pulp, tender meats. These foods will pass more easily through the intestine. Avoid whole-grain foods, whole fruits and vegetables, meats, seeds and nuts, fried or fatty foods, dairy, alcohol and spicy foods until your symptoms go away. Follow-up care Follow up with your health care provider as instructed, or if your pain does not begin to improve in the next 24 hours. When to seek medical care Seek prompt medical care if any of the following occur: Pain gets worse or moves to the right lower abdomen New or worsening vomiting or diarrhea Swelling of the abdomen Unable to pass stool for more than three days Fever of 100.4F (38C) or higher, or as directed by your healthcare provider. Blood in vomit or bowel movements (dark red or black color) Jaundice (yellow color of eyes and skin) Weakness, dizziness Chest, arm, back, neck or jaw pain Unexpected vaginal bleeding or missed period Call 911 Call emergency services if any of the following occur: Trouble breathing Confusion Fainting or loss of consciousness Rapid heart rate Seizure Gastritis Versus Ulcer (No Antibiotic Tx) The symptoms of gastritis and peptic ulcer are very similar. Both can cause a dull ache or burning pain in the upper abdomen. Other symptoms include nausea, vomiting, loss of appetite, and belching or bloating. Blood in the vomit or stools (red or black) is a sign of bleeding in the stomach. This requires immediate medical attention. A Peptic Ulcer is an open sore in the lining of the stomach or duodenum (upper intestine). The most common cause of peptic ulcer disease is a bacterial infection (H pylori) in the stomach. Another common cause is taking anti-inflammatory medications (such as ibuprofen, prednisone, and aspirin). Gastritis is an irritation of the stomach lining. It can be acute (recent) or chronic (lasting a long time). Gastritis can be caused by overuse of alcohol or anti-inflammatory medications (such as aspirin, ibuprofen, prednisone). H pyloriinfection can also cause chronic gastritis. Tests for H pyloriare used to screen for bacterial infection. If no infection is found, ulcer and gastritis can be treated by stopping the cause, such as anti-inflammatory medications, alcohol, caffeine, and tobacco, and treating with antacids plus an acid damaris medication. If H pylori infection is found, antibiotics will be prescribed along with an acid damaris. Persons 55 years and older may undergo other tests before treatment is started. Two common tests are used to evaluate your symptoms. An upper GI series is an x-ray taken after you drink a chalky liquid called barium. This coats the stomach and allows an ulcer to show up on the x-ray. Another test is called endoscopy during which a long thin tube called an endoscope is passed down your throat to the stomach. A camera at the end of the scope allows the doctor to view inside the stomach to check the cause of your symptoms. Home Care: Take the prescribed acid damaris medication for the full course of treatment even if you begin to feel better sooner. This medication can take up to several days to fully control your symptoms. If you cant afford the prescribed medication, you can try cygh-hoe-fbowadf acid blockers, such as Pepcid AC, Tagamet, Zantac, or Aciphex. If these do not relieve your symptoms, a stronger acid-damaris can be tried, such as Prilosec OTC. If you have been prescribed an antibiotic to treat H pyloriinfection, finish the full course of medication. Do so even if you begin to feel better sooner. If you stop the medication too soon, the infection can return and be harder to treat. You can use antacids, such as Tums, Rolaids, Mylanta, or Maalox, for pain. This will be useful the first few days after starting acid blockers when the blockers havent started working yet. Follow the directions on the label. Liquid antacids may work better than tablets. Note that antacids can interfere with absorption of certain medications. Specifically, do not take Tagamet (cimetidine), Zantac (ranitidine), or Carafate (sucralfate) within 1 hour of taking an antacid. Talk with your pharmacist if you have any questions. Although foods do not cause an ulcer, symptoms can be worsened by certain foods. Limit or avoid fatty, fried, and spicy foods, as well as coffee, chocolate, mint, and foods with high acid content such as tomatoes and citrus fruit and juices (orange, grapefruit, lemon). Avoid alcohol, caffeine, and tobacco, which can delay healing. Avoid aspirin and anti-inflammatory medications such as ibuprofen (Advil, Motrin) and naproxen (Naprosyn, Aleve). Acetaminophen (Tylenol) is safe to use. Do not take more than the amount listed on the label. Follow Up with your doctor or as advised. Further testing may be needed. If you do not begin to improve over the next 4 days, contact your doctor. If you had tests, youll be notified of any new findings that affect your care. Get Prompt Medical Attention if any of the following occur: Stomach pain gets worse or moves to the lower right abdomen (appendix area) Chest pain appears or gets worse, or spreads to the back, neck, shoulder, or arm Frequent vomiting (cant keep down liquids) Blood in the stool or vomit (red or black in color) Feeling weak or dizzy, fainting, or trouble breathing Fever of 100.4F (38C) or higher, or as directed by your healthcare provider Famotidine Oral tablet What is this medicine? FAMOTIDINE (fa RENATO summers) is a type of antihistamine that blocks the release of stomach acid. It is used to treat stomach or intestinal ulcers. It can also relieve heartburn from acid reflux. How should I use this medicine? Take this medicine by mouth with a glass of water. Follow the directions on the prescription label. If you only take this medicine once a day, take it at bedtime. Take your doses at regular intervals. Do not take your medicine more often than directed. Talk to your purchasing and fiscal clerk regarding the use of this medicine in children. Special care may be needed. What side effects may I notice from receiving this medicine? Side effects that you should report to your doctor or health healthcare social worker as soon as possible: agitation, nervousness confusion hallucinations skin rash, itching Side effects that usually do not require medical attention (report to your doctor or health healthcare social worker if they continue or are bothersome): constipation diarrhea dizziness headache What may interact with this medicine? delavirdine itraconazole ketoconazole What if I miss a dose? If you miss a dose, take it as soon as you can. If it is almost time for your next dose, take only that dose. Do not take double or extra doses. Where should I keep my medicine? Keep out of the reach of children. Store at room temperature between 15 and 30 degrees C (59 and 86 degrees F). Do not freeze. Throw away any unused medicine after the expiration date. What should I tell my health care provider before I take this medicine? They need to know if you have any of these conditions: kidney or liver disease trouble swallowing an unusual or allergic reaction to famotidine, other medicines, foods, dyes, or preservatives or trying to get breast-feeding What should I watch for while using this medicine? Tell your doctor or health healthcare social worker if your condition does not start to get better or if it gets worse. Finish the full course of tablets prescribed, even if you feel better. Do not take with aspirin, ibuprofen or other antiinflammatory medicines. These can make your condition worse. Do not smoke cigarettes or drink alcohol. These cause irritation in your stomach and can increase the time it will take for ulcers to heal. If you get black, tarry stools or vomit up what looks like coffee grounds, call your doctor or health healthcare social worker at once. You may have a bleeding ulcer. You have been given the following additional information: Chest Pain, Uncertain Cause Hypertension, Established Abdominal Pain, Unknown Cause, (Female) Gastritis Vs. Ulcer Famotidine Oral tablet (Electronically signed by Rashad Ortez Dr. 08/16/2016 19:07)
--- NOTE | 2016-08-16 19:07 | ED MED RECONCILIATION SUMMARY ---
Patient: GISSELLE WILSON Medication Reconciliation Report [facility] VisitID: [id number] [address] [place] [address] 71y, F Registration Date/Time: 08/14/2016 Weight: 90.7 kg Height/Length: 66 in. BMI: 32.3 ALLERGIES: morphine, Penicillin, Sulfa Antibiotics The patient's Home Medications are listed below: CONTINUE TAKING THE FOLLOWING MEDICATIONS: Atorvastatin 80mg x1 tab daily Combigan Ophthalmic Hydrochlorothiazide Oral 25 mg, daily Lantanoprost Patricia 0.005% Lantus Subcutaneous 85 units, every AM Lisinopril Oral 40 mg, daily Methazolamide Oral (25 mg) 1 tablet, x2 daily Paroxetine 40mg x2 tabs daily Pramipexole 0.25mg x1 tab at bedtime Ranitidine HCl Oral 150 mg, 2x a day RisperiDONE Oral (0.5 mg) 1 tablet, 2x a day Timolol Mal Patricia 0.5% OP - 1 gtt x2 daily TraZODone HCl Oral 50 mg, 1 1/2 tab, at bedtime Xarelto Oral (15 mg) 1 tablet, daily The source(s) of the original Home Medication information: patient The following Medications were given to the patient in the Emergency Department: maalox PO 30, administered: 08/14/2016 12:44:00 PM lidocaine viscous PO 20, administered: 08/14/2016 12:45:00 PM maalox Opth soln 30mg, administered: 08/14/2016 4:55:00 PM lido viscous PO 20, administered: 08/14/2016 4:55:00 PM Pepcid [PO] PO 20 mg, administered: 08/14/2016 5:07:00 PM Tylenol [PO] PO 650 mg, administered: 08/14/2016 8:22:00 PM Fentanyl [IVP] IVP 50 mcg, administered: 08/14/2016 8:22:00 PM The following Medications were prescribed to the patient: Pepcid 20 mg: take 1 orally every 12 hours for 10 days as needed for indigestion, upset stomach or heartburn. Dispense twenty (20). No refills. Substitution is permissible. -- Rashad Ortez Dr.
--- NOTE | 2016-08-16 19:07 | ED MAR SUMMARY ---
..... Medication Administration Record [facility] [address], [place] [address] Patient: GISSELLE WILSON Visit ID: [id number] 71y, F Weight: 90.7 kg Height/Length: 66 in BMI: 32.3 ALLERGIES: morphine, Penicillin, Sulfa Antibiotics Given 12:44 08/14/2016 Rola Butt R.N. Medication Administered: maalox *, Dose: 30 * PO. Medication Ordered: GI Cocktail WHITE PO 30 mL (NOW). Given 12:45 08/14/2016 Rola Butt R.N. Medication Administered: lidocaine viscous *, Dose: 20 * PO. Medication Ordered: GI Cocktail WHITE PO 30 mL (NOW). Given 16:08/14/2016 Rola Butt R.N. Medication Administered: maalox *, Dose: 30mg * Opth soln. Medication Ordered: GI Cocktail WHITE PO 30 mL (NOW). Given 16:08/14/2016 Rola Butt R.N. Medication Administered: lido viscous *, Dose: 20 * PO. Medication Ordered: GI Cocktail WHITE PO 30 mL (NOW). Given 17:07 08/14/2016 Rola Butt R.N. Medication Administered: PEPCID [PO] (FAMOTIDINE), Dose: 20 mg PO. Medication Ordered: Pepcid PO 20 mg (NOW). Given :08/14/2016 Rola Butt R.N. Medication Administered: TYLENOL [PO] (ACETAMINOPHEN), Dose: 650 mg PO. Medication Ordered: Tylenol PO 650 mg (NOW). Given :08/14/2016 Rola Butt R.N. Medication Administered: FENTANYL [IVP], Dose: 50 mcg IVP over 1 minute(s), Site: #1 right AC. Medication Ordered: Fentanyl IV 50 mcg (HIGH ALERT MEDICATION, NOW).
== END 2016-08-14 23:11 | disposition home or self-care (01) ==
LOC: ED SRH 11:45
DX: K29.00 Acute gastritis without bleeding (principal); Z86.73 Personal history of transient ischemic attack (TIA), and cerebral infarction without residual deficits; R07.89 Other chest pain; R10.13 Epigastric pain; I10 Essential (primary) hypertension; K21.9 Gastro-esophageal reflux disease without esophagitis; E78.5 Hyperlipidemia, unspecified; E11.9 Type 2 diabetes mellitus without complications; I25.10 Atherosclerotic heart disease of native coronary artery without angina pectoris; I82.409 Acute embolism and thrombosis of unspecified deep veins of unspecified lower extremity
CPT/HCPCS: 81460; 90004; 90100; 90616; 91320; 91556; 92235; 94060; 95059

== ENCOUNTER 2016-09-04 17:59 | Emergency (ER) | payer OTHER ==
--- NOTE | 2016-09-04 20:23 | ED ORDER SUMMARY ---
..... Patient: GISSELLE WILSON OrderSheet [facility] VisitID: [id number] [place] [address] 71y, F Registration Date/Time: 09/04/2016 ORDER SHEET Weight: 90.7 kg (stated) Allergies: morphine, Penicillin, Sulfa Antibiotics GENERAL ORDERS: Pulse oximeter (18:09/04/2016 Junito Cruz) (18:43 MWinterer R.N.) MEDICATION ORDERS: IV FLUIDS: IV NS : initial bolus 1000 mL (1000 mL/hr), then none - for X1 (NOW) (18:09/04/2016 Junito Cruz) (Ack 18:35 MWinterer R.N.) (18:43 MWinterer R.N.) Reglan IV 10 mg (NOW) (18:09/04/2016 Junito Cruz) (Ack 18:35 MWinterer R.N.) (18:44 MWinterer R.N.) Benadryl IV 25 mg (NOW) (18:09/04/2016 Junito Cruz) (Ack 18:35 MWinterer R.N.) (18:45 MWinterer R.N.) Decadron IV 10 mg (NOW) (18:09/04/2016 Junito Cruz) (Ack 18:35 MWinterer R.N.) (18:49 MWinterer R.N.) Toradol IV 30 mg (NOW) (18:09/04/2016 Junito Cruz) (Ack 18:35 MWinterer R.N.) (18:46 MWinterer R.N.) ORDER SHEET NOTES: [Electronically signed by Marii Landis R.N. (22:56 09/04/2016)] [Electronically signed by Rashad Ortez Dr. (06:18 09/06/2016)] [Electronically locked/signed by Marii Landis R.N. (22:56 09/04/2016)]
--- NOTE | 2016-09-04 20:23 | ED CLINICAL REPORT ---
Clinical Report - Physicians/Mid Levels [facility] [address] [place] [address] 09/04/2016 18:00 Patient: GISSELLE WILSON Time Seen: 1815. Arrived- By ambulance. Historian- patient and EMS personnel. HISTORY OF PRESENT ILLNESS Chief Complaint: HEADACHE. Is still present. This started today. It is not gone now. It was gradual in onset and has been constant (took a few hours to reach max intensity). It is described as similar to previous headaches. Located in the right hemicranial region. No neck pain. Not located in the facial region. At its maximum, severity described as severe. When seen in the E.D., severity described as moderate. Modifying factors: worsened by bright light and noise; relieved by nothing. No preceding symptoms, blurred vision, photophobia, numbness or vomiting. No recent travel. Similar symptoms previously: (a few times). Recent medical care: Not recently seen/assessed. REVIEW OF SYSTEMS No fever, chest pain, difficulty breathing or abdominal pain. All systems otherwise negative, except as recorded above. PAST HISTORY See nurses notes. SOCIAL HISTORY Former smoker. History of occasional drug use: marijuana. No alcohol use. PHYSICAL EXAM Appearance: Alert. No acute distress. Eyes: Pupils equal, round and reactive to light. Eyes normal inspection. No conjunctival findings. (no papilledema. normal appearing retinal vasculature.). ENT: Ears normal. Nose normal. Pharynx normal. Neck: Normal inspection. Neck supple. CVS: Normal heart rate and rhythm. Heart sounds normal. Pulses normal. Respiratory: No respiratory distress. Breath sounds normal. Abdomen: Soft and nontender. No organomegaly. Skin: Skin warm and dry. Normal skin color. No rash. Normal skin turgor. Extremities: Extremities exhibit normal ROM. No lower extremity edema. Neuro: Oriented X 3. Alert. Mood/affect normal. Speech normal. Cranial nerves normal (as tested). No cerebellar findings. No motor deficit. No sensory deficit. Reflexes normal. PROGRESS AND PROCEDURES Course of Care: Patient is a pleasant 71 yo female presenting for evaluation of headache. Patient as been evaluated for SAH, increased ICP, meningitis, and space occupying lesion. Patients exam and history are not consistent with these entities. Patient is agreeable to treatment for headache. Medications have been ordered after reviewing allergies and intolerances. Patient will be reevaluated after the medications have been given. Patient was reevaluated and found to be significantly improved. Patient reports being able to return home and follow up with doctor. Repeat examination continues to be benign. I discussed with the patient workup, diagnosis, home care, follow-up, and return precautions. All questions have been answered. The patient expressed understanding of these instructions and was agreeable to them. Do not feel patient needs to be admitted to the hospital or require further ED workup/evaluation. Disposition: Discharged. Condition: good. CLINICAL IMPRESSION 09/04/2016 19:52 BP: 110/50. HR: 59. RR: 12. O2 saturation: 98%. Acute headache (right sided). Blood pressure normal. Oxygen saturation normal. INSTRUCTIONS Warnings: GENERAL WARNINGS: Return or contact your physician immediately if your condition worsens or changes unexpectedly, if not improving as expected, or if other problems arise. SPECIFICALLY, return if you develop fever, vomiting, numbness, weakness, difficulty thinking, visual disturbances, fainting or extreme fatigue. Your Current Medications: CONTINUE TAKING THE FOLLOWING MEDICATIONS: Atorvastatin 80mg x1 tab daily*. Combigan Ophthalmic. Hydrochlorothiazide Oral : 25 mg daily. Lantanoprost Patricia 0.005% *. Lantus Subcutaneous : 85 units every AM. Lisinopril Oral : 40 mg daily. Methazolamide Oral : Tablet 25 mg, 1 tablet x2 daily. Paroxetine 40mg x2 tabs daily*. Pramipexole 0.25mg x1 tab at bedtime*. Ranitidine HCl Oral : 150 mg 2x a day. RisperiDONE Oral : Tablet Dispersible 0.5 mg, 1 tablet 2x a day. Timolol Mal Patricia 0.5% OP - 1 gtt x2 daily*. TraZODone HCl Oral : 50 mg, 1 1/2 tab at bedtime. Xarelto Oral : Tablet 15 mg, 1 tablet daily. Prescription Medications: Zofran (orally disintegrating tablets) 4 mg: take 1 orally every 8 hours as needed for nausea and vomiting. Dispense ten (10). No refill. Substitution is permissible. Follow-up: Return to the emergency department as needed. Follow up with your doctor in three days. Reason for referral: recheck today's concerns. Summary of care provided to patient via paper. Screening today revealed the patient's blood pressure to be in the normal range. The patient should follow up with a primary care provider for blood pressure management. Understanding of the discharge instructions verbalized by patient. (Electronically signed by Rashad Ortez Dr. 09/06/2016 6:18)
--- NOTE | 2016-09-04 20:23 | ED ORDER SUMMARY ---
..... Patient: GISSELLE WILSON OrderSheet [facility] VisitID: [id number] [place] [address] 71y, F Registration Date/Time: 09/04/2016 ORDER SHEET Weight: 90.7 kg (stated) Allergies: morphine, Penicillin, Sulfa Antibiotics GENERAL ORDERS: Pulse oximeter (18:09/04/2016 Junito Cruz) (18:43 MWinterer R.N.) MEDICATION ORDERS: IV FLUIDS: IV NS : initial bolus 1000 mL (1000 mL/hr), then none - for X1 (NOW) (18:09/04/2016 Junito Cruz) (Ack 18:35 MWinterer R.N.) (18:43 MWinterer R.N.) Reglan IV 10 mg (NOW) (18:09/04/2016 Junito Cruz) (Ack 18:35 MWinterer R.N.) (18:44 MWinterer R.N.) Benadryl IV 25 mg (NOW) (18:09/04/2016 Junito Cruz) (Ack 18:35 MWinterer R.N.) (18:45 MWinterer R.N.) Decadron IV 10 mg (NOW) (18:09/04/2016 Junito Cruz) (Ack 18:35 MWinterer R.N.) (18:49 MWinterer R.N.) Toradol IV 30 mg (NOW) (18:09/04/2016 Junito Cruz) (Ack 18:35 MWinterer R.N.) (18:46 MWinterer R.N.) ORDER SHEET NOTES: [Electronically signed by Marii Landis R.N. (22:56 09/04/2016)] [Electronically signed by Rashad Ortez Dr. (06:18 09/06/2016)] [Electronically locked/signed by Marii Landis R.N. (22:56 09/04/2016)]
--- NOTE | 2016-09-04 20:23 | ED NURSING NOTES ---
Clinical Report - Nurses [facility] [address] [place] [address] 09/04/2016 18:00 Patient: GISSELLE WILSON TRIAGE Acuity: LEVEL 3. Chief Complaint: FATIGUE and HEADACHE. Alert. No acute distress. SEPSIS SCREEN: Sepsis Screen. Negative (no infection suspected/documented). DEANDRA COMA SCORE: [place] Coma Scale: 15- eyes open spontaneously (4); best verbal response- oriented x 4 (5); best motor response- obeys commands (6). --18:12 Marii Landis R.N. 18:03 09/04/16. BP: 132/60. HR: 55. RR: 18. O2 saturation: 95% on room air. Temp: 98.7 F (oral). Pain level now: 10. --18:12 Marii Landis R.N. Weight: 90.7 kg stated. Height/Length: 66 inches Per Patient. BMI: 32.3. --18:06 Marii Landis R.N. Medications Atorvastatin 80mg x1 tab daily. Combigan Ophthalmic. Hydrochlorothiazide Oral 25 mg, daily. Lantanoprost Patricia 0.005% . Lantus Subcutaneous 85 units, every AM. Lisinopril Oral 40 mg, daily. Methazolamide Oral (Tablet 25 mg) 1 tablet, x2 daily. Paroxetine 40mg x2 tabs daily. Pramipexole 0.25mg x1 tab at bedtime. Ranitidine HCl Oral 150 mg, 2x a day. RisperiDONE Oral (Tablet Dispersible 0.5 mg) 1 tablet, 2x a day. Timolol Mal Patricia 0.5% OP - 1 gtt x2 daily. TraZODone HCl Oral 50 mg, 1 1/2 tab, at bedtime. Xarelto Oral (Tablet 15 mg) 1 tablet, daily. --18:04 Marii Landis R.N. Medication/allergy information source: the patient. --18:12 Marii Landis R.N. Allergies morphine. Penicillin. Sulfa Antibiotics. --18:04 Marii Landis R.N. History Arrived by EMS. Historian: patient. Unaccompanied. Primary physician (Mazin). This started today. ( Pt reports she feels the heat made her not feel well and get emotional today.). No fever or cough. Treatment CASTING COORDINATOR: None. PAST MEDICAL HX: The patient is post-menopausal. SOCIAL HX: Former smoker, end date 2006. History of occasional drug use: marijuana. No alcohol use. NUTRITIONAL RISK ASSESSMENT: The nutritional risk assessment revealed no deficiencies. FUNCTIONAL ASSESSMENT: Functional assessment: no impairments noted. LEARNING NEEDS ASSESSMENT: The learning needs assessment revealed no barriers. FALL RISK ASSESSMENT: Fall risk assessment completed. Risk factors identified include patient age greater than 65 years. Fall interventions initiated. Side rails up x2. Brakes on Bed in low position. Call light in reach of patient. SKIN INTEGRITY ASSESSMENT: Skin integrity risk assessment completed. No skin integrity risk identified. --18:12 Marii Landis R.N. Treatment CASTING COORDINATOR: EMS treatment CASTING COORDINATOR verbally communicated. Finger stick glucose performed (80). --18:13 Marii Landis R.N. PROBLEMS: Gastritis. Atypical Chest Pain. Benign Positional Vertigo. Weakness. Hypertension. Hypoxia. Influenza. Hypoglycemia. MRSA Infection. Dyspnea. UTI - Urinary Tract Infection. DVT - Deep Venous Thrombosis. Renal Insufficiency. Bronchitis. Blindness. Wound Infection. TIA - Transient Ischemic Attack. Concussion. Abrasion(s). Fall. Colon Cancer. Tetanus Status. Vomiting. Abdominal Pain. Immunizations. LNMP - Last Normal Menstrual Period. Myofascial Strain. Contusion. Anxiety Reaction. Arthritis. Back Pain. Coronary Artery Disease. Cataracts. CVA - Cerebrovascular Accident. Depression. Diabetes Mellitus. Hyperlipidemia. Peripheral Vascular Disease. Gastroesophageal Reflux Disease. --18:05 Marii Landis R.N. ADDITIONAL SURGERIES: Abdominal Aortic Aneurysm Repair. Appendectomy. Colostomy. Colostomy takedown . Tonsillectomy. --18:05 Marii Landis R.N. Assessment GENERAL / NEURO / PSYCH: Alert. Oriented X 4. Appears in no acute distress. Patient appears calm and cooperative. RESPIRATORY: Respirations not labored. CVS: Capillary refill less than 2 seconds. GI / : Abdomen soft and nontender. SKIN: Mucous membranes are pink. Skin is warm and dry. --18:12 Marii Landis R.N. Interventions ID band on patient. To treatment room. --18:12 Marii Landis R.N. PHYSICAL ASSESSMENT 18:12 09/04/16. To room via stretcher. GENERAL / NEURO / PSYCH: Alert. Oriented X 4. Appears in no acute distress. HEENT: Pupils equal, round and reactive to light. No facial asymmetry noted. Mucous membranes are pink. RESPIRATORY: Respirations not labored. CVS: Capillary refill less than 2 seconds. GI / : Abdomen soft and nontender. SKIN: Skin intact. Skin is warm and dry. Normal skin turgor. --18:12 Marii Landis R.N. NURSING PROGRESS NOTES 18:11 09/04/16. Patient gowned. Head of bed elevated. Reassurance given. Two patient identifiers checked. Call light placed in reach. Side rails up x 2. Bed placed in lowest position. Brakes of bed on. Patient ready for evaluation- chart flagged and ED physician and PA notified. --18:11 Marii Landis R.N. 18:12 09/04/2016 Site #1 started via IV in the right forearm with an 20g angiocath, with aseptic technique and good blood return; one attempt. Blood drawn: rainbow set. Labeled in the presence of the patient and sent to the lab. Saline lock flushed with 10 mL saline. --18:12 Marii Landis R.N. Finger stick glucose: 122; ordered; performed by tech; result shown to the ED physician and RN. --18:23 Matt Neves, YAMILEX Tech1 18:43 09/04/2016 Started bag #1 1000 mL IV Fluids IV NS (Saline); at 999 mL/hr over 1 hour(s) via site #1 via IV pump. Allergies verified and confirmed 5 rights. IV patency established. IV site checked: no pain, redness, or swelling. IV flushed thoroughly pre- and post-medication administration. --18:43 Marii Landis R.N. 18:43 09/04/2016 Reglan (Metoclopramide HCl) IVP 10 mg given over 1 minute(s) via site #1. Allergies verified and confirmed 5 rights. IV patency established. IV site checked: no pain, redness, or swelling. IV flushed thoroughly pre- and post-medication administration. IVP given by RN. --18:44 Marii Landis R.N. 18:45 09/04/2016 Benadryl (DiphenhydrAMINE HCl) IVP 25 mg given over 1 minute(s) via site #1. Allergies verified, confirmed 5 rights and sedative warning given to the patient. IV patency established. IV site checked: no pain, redness, or swelling. IV flushed thoroughly pre- and post-medication administration. IVP given by RN. --18:45 Marii Landis R.N. 18:46 09/04/2016 Toradol IVP 30 mg given over 1 minute(s) via site #1. Allergies verified and confirmed 5 rights. IV patency established. IV site checked: no pain, redness, or swelling. IV flushed thoroughly pre- and post-medication administration. IVP given by RN. --18:46 Marii Landis R.N. 18:49 09/04/2016 Decadron IVP 10 mg given over 3 minute(s) via site #1. Allergies verified and confirmed 5 rights. IV patency established. IV site checked: no pain, redness, or swelling. IV flushed thoroughly pre- and post-medication administration. IVP given by RN. --18:49 Marii Landis R.N. 18:49 09/04/16. Pulse oximeter and NIBP monitor placed on patient; monitor alarms on. --18:49 Marii Landis R.N. 19:45 09/04/2016 IV Fluids IV NS Discontinued: completed. Total amount infused: 1000 mL. IV patency established. IV site checked: no pain, redness, or swelling. IV flushed thoroughly. --19:45 Luz Mark R.N. 19:52 09/04/16. Reassessment after fluids administered and medication administered. She is sleeping and has had no adverse reaction. --19:52 Marii Landis R.N. 19:52 09/04/16. BP: 110/50. HR: 59. RR: 12. O2 saturation: 98% on room air. --19:57 Marii Landis R.N. ( At patient bedside after she called. Patient requesting to go home. ER Doctor notified and working on disposition.). --20:23 Breanna Sullivan. DISPOSITION / DISCHARGE Departure time: 21:15 Sep 04 2016. Condition at departure: improved and stable. No learning barriers present. Reviewed medication(s). Prescription(s) given to the patient (zofran). Patient verbalized understanding. Written instructions provided in [place]. The patient was discharged by the physician. She was discharged home and accompanied by family. She left the Emergency Department ambulatory and via private vehicle. Family member driving. --22:56 Marii Landis R.N. 22:53 09/04/16. BP: 150/77. HR: 69. RR: 18. O2 saturation: 100% on room air. Temp: 98.8 F (oral). Pain level now: 0/10. --22:56 Marii Landis R.N. 21:10 09/04/2016 Site #1 removed upon discharge. Catheter intact. Manual pressure and bandaid applied. --22:56 Marii Landis R.N. Locked/Released at 09/04/2016 22:56 by Marii Landis R.N.
--- NOTE | 2016-09-06 06:18 | ED MED RECONCILIATION SUMMARY ---
Patient: GISSELLE WILSON Medication Reconciliation Report [facility] VisitID: [id number] [address] [place] [address] 71y, F Registration Date/Time: 09/04/2016 Weight: 90.7 kg Height/Length: 66 in. BMI: 32.3 ALLERGIES: morphine, Penicillin, Sulfa Antibiotics The patient's Home Medications are listed below: CONTINUE TAKING THE FOLLOWING MEDICATIONS: Atorvastatin 80mg x1 tab daily Combigan Ophthalmic Hydrochlorothiazide Oral 25 mg, daily Lantanoprost Patricia 0.005% Lantus Subcutaneous 85 units, every AM Lisinopril Oral 40 mg, daily Methazolamide Oral (25 mg) 1 tablet, x2 daily Paroxetine 40mg x2 tabs daily Pramipexole 0.25mg x1 tab at bedtime Ranitidine HCl Oral 150 mg, 2x a day RisperiDONE Oral (0.5 mg) 1 tablet, 2x a day Timolol Mal Patricia 0.5% OP - 1 gtt x2 daily TraZODone HCl Oral 50 mg, 1 1/2 tab, at bedtime Xarelto Oral (15 mg) 1 tablet, daily The source(s) of the original Home Medication information: patient The following Medications were given to the patient in the Emergency Department: IV NS IV Fluids bolus 0, then 999 mL/hr, administered: 09/04/2016 6:43:00 PM Reglan [IVP] IVP 10 mg, administered: 09/04/2016 6:43:00 PM Benadryl [IVP] IVP 25 mg, administered: 09/04/2016 6:45:00 PM Toradol [IVP] IVP 30 mg, administered: 09/04/2016 6:46:00 PM Decadron [IVP] IVP 10 mg, administered: 09/04/2016 6:49:00 PM The following Medications were prescribed to the patient: Zofran (orally disintegrating tablets) 4 mg: take 1 orally every 8 hours as needed for nausea and vomiting. Dispense ten (10). No refill. Substitution is permissible. -- Rashad Ortez Dr.
--- NOTE | 2016-09-06 06:18 | ED MAR SUMMARY ---
..... Medication Administration Record [facility] [address] [place] [address] Patient: GISSELLE WILSON Visit ID: [id number] 71y, F Weight: 90.7 kg Height/Length: 66 in BMI: 32.3 ALLERGIES: morphine, Penicillin, Sulfa Antibiotics Start 18:43 09/04/2016 Marii Landis R.N., Stop 19:45 09/04/2016 Luz Mark R.N. Medication Administered: IV NS (SALINE), Dose: IV Fluids over 1 hour(s), Rate: 999 mL/hr, Dispensed: 1000 mL bag, Site: #1 right forearm. Medication Ordered: IV NS : initial bolus 1000 mL (1000 mL/hr), then none - for X1 (NOW). Given 18:43 09/04/2016 Marii Landis R.N. Medication Administered: REGLAN [IVP] (METOCLOPRAMIDE HCL), Dose: 10 mg IVP over 1 minute(s), Site: #1 right forearm. Medication Ordered: Reglan IV 10 mg (NOW). Given 18:45 09/04/2016 Marii Landis R.N. Medication Administered: BENADRYL [IVP] (DIPHENHYDRAMINE HCL), Dose: 25 mg IVP over 1 minute(s), Site: #1 right forearm. Medication Ordered: Benadryl IV 25 mg (NOW). Given 18:46 09/04/2016 Marii Landis R.N. Medication Administered: TORADOL [IVP], Dose: 30 mg IVP over 1 minute(s), Site: #1 right forearm. Medication Ordered: Toradol IV 30 mg (NOW). Given 18:49 09/04/2016 Marii Landis R.N. Medication Administered: DECADRON [IVP], Dose: 10 mg IVP over 3 minute(s), Site: #1 right forearm. Medication Ordered: Decadron IV 10 mg (NOW).
--- NOTE | 2016-09-06 06:18 | ED MED RECONCILIATION SUMMARY ---
Patient: GISSELLE WILSON Medication Reconciliation Report [facility] VisitID: [id number] [address] [place] [address] 71y, F Registration Date/Time: 09/04/2016 Weight: 90.7 kg Height/Length: 66 in. BMI: 32.3 ALLERGIES: morphine, Penicillin, Sulfa Antibiotics The patient's Home Medications are listed below: CONTINUE TAKING THE FOLLOWING MEDICATIONS: Atorvastatin 80mg x1 tab daily Combigan Ophthalmic Hydrochlorothiazide Oral 25 mg, daily Lantanoprost Patricia 0.005% Lantus Subcutaneous 85 units, every AM Lisinopril Oral 40 mg, daily Methazolamide Oral (25 mg) 1 tablet, x2 daily Paroxetine 40mg x2 tabs daily Pramipexole 0.25mg x1 tab at bedtime Ranitidine HCl Oral 150 mg, 2x a day RisperiDONE Oral (0.5 mg) 1 tablet, 2x a day Timolol Mal Patricia 0.5% OP - 1 gtt x2 daily TraZODone HCl Oral 50 mg, 1 1/2 tab, at bedtime Xarelto Oral (15 mg) 1 tablet, daily The source(s) of the original Home Medication information: patient The following Medications were given to the patient in the Emergency Department: IV NS IV Fluids bolus 0, then 999 mL/hr, administered: 09/04/2016 6:43:00 PM Reglan [IVP] IVP 10 mg, administered: 09/04/2016 6:43:00 PM Benadryl [IVP] IVP 25 mg, administered: 09/04/2016 6:45:00 PM Toradol [IVP] IVP 30 mg, administered: 09/04/2016 6:46:00 PM Decadron [IVP] IVP 10 mg, administered: 09/04/2016 6:49:00 PM The following Medications were prescribed to the patient: Zofran (orally disintegrating tablets) 4 mg: take 1 orally every 8 hours as needed for nausea and vomiting. Dispense ten (10). No refill. Substitution is permissible. -- Rashad Ortez Dr.
--- NOTE | 2016-09-06 06:18 | ED DISCHARGE INSTRUCTIONS ---
Patient: GISSELLE WILSON General Instructions [facility] VisitID: [id number] [place] [address] 71y, F Registration Date/Time: 09/04/2016 09/04/2016 19:52 BP: 110/50. HR: 59. RR: 12. O2 saturation: 98%. Acute headache (right sided). Blood pressure normal. Oxygen saturation normal. INSTRUCTIONS Warnings: GENERAL WARNINGS: Return or contact your physician immediately if your condition worsens or changes unexpectedly, if not improving as expected, or if other problems arise. SPECIFICALLY, return if you develop fever, vomiting, numbness, weakness, difficulty thinking, visual disturbances, fainting or extreme fatigue. Your Current Medications: CONTINUE TAKING THE FOLLOWING MEDICATIONS: Atorvastatin 80mg x1 tab daily*. Combigan Ophthalmic. Hydrochlorothiazide Oral : 25 mg daily. Lantanoprost Patricia 0.005% *. Lantus Subcutaneous : 85 units every AM. Lisinopril Oral : 40 mg daily. Methazolamide Oral : Tablet 25 mg, 1 tablet x2 daily. Paroxetine 40mg x2 tabs daily*. Pramipexole 0.25mg x1 tab at bedtime*. Ranitidine HCl Oral : 150 mg 2x a day. RisperiDONE Oral : Tablet Dispersible 0.5 mg, 1 tablet 2x a day. Timolol Mal Patricia 0.5% OP - 1 gtt x2 daily*. TraZODone HCl Oral : 50 mg, 1 1/2 tab at bedtime. Xarelto Oral : Tablet 15 mg, 1 tablet daily. Prescription Medications: Zofran (orally disintegrating tablets) 4 mg: take 1 orally every 8 hours as needed for nausea and vomiting. Dispense ten (10). No refill. Substitution is permissible. Follow-up: Return to the emergency department as needed. Follow up with your doctor in three days. Reason for referral: recheck today's concerns. Summary of care provided to patient via paper. Screening today revealed the patient's blood pressure to be in the normal range. The patient should follow up with a primary care provider for blood pressure management. Understanding of the discharge instructions verbalized by patient. ADDITIONAL INFORMATION Headache [Unspecified] The cause of your headache today is not clear, but it does not appear to be the sign of any serious illness. Under stress, some people tense the muscles of their shoulder, neck and scalp without knowing it. If this condition lasts long enough, a TENSION HEADACHE can occur. A MIGRAINE HEADACHE is caused by changes in blood flow to the brain. A migraine attack may be triggered by emotional stress, hormone changes during the menstrual cycle, oral contraceptives, alcohol use, certain foods containing tyramine, eye strain, weather changes, missing meals, lack of sleep or oversleeping. Other causes of headache include a viral illness with high fever, head injury with concussion, sinus, ear or throat infection, dental pain and TMJ (jaw joint) pain. More serious but less common causes of headache include stroke, brain hemorrhage, brain tumor, meningitis and encephalitis. Home Care: If you were given pain medicine for this headache, do not drive yourself home. Arrange for a ride, instead. When you get home, try to sleep. You should feel much better when you wake up. Apply heat to the back of your neck to relieve neck muscle spasm. Migraine headaches may respond best to an ice pack on the forehead or at the base of the skull. If you are having nausea or vomiting, follow a light diet until your headache is relieved. If you have a migraine type headache, use sunglasses when in the daylight or around bright indoor lighting until symptoms improve. Bright glaring light can worsen this kind of headache. Follow Up with your doctor if the headache is not better within the next 24 hours. If you have frequent headaches you should discuss a treatment plan with your primary care doctor. By being aware of the earliest signs of headache, and starting treatment right away, you may be able to stop the pain yourself. Get Prompt Medical Attention if any of the following occur: Worsening of your head pain or no improvement within 24 hours Repeated vomiting (unable to keep liquids down) Fever of 100.4F (38C) or higher, or as directed by your healthcare provider Stiff neck Extreme drowsiness, confusion or fainting Dizziness, vertigo (dizziness with spinning sensation) Weakness of an arm or leg or one side of the face Difficulty with speech or vision Ondansetron Oral disintegrating tablet What is this medicine? ONDANSETRON (on DARYL se evan) is used to treat nausea and vomiting caused by chemotherapy. It is also used to prevent or treat nausea and vomiting after surgery. How should I use this medicine? These tablets are made to dissolve in the mouth. Do not try to push the tablet through the foil backing. With dry hands, peel away the foil backing and gently remove the tablet. Place the tablet in the mouth and allow it to dissolve, then swallow. While you may take these tablets with water, it is not necessary to do so. Talk to your dermatological surgeon regarding the use of this medicine in children. Special care may be needed. What side effects may I notice from receiving this medicine? Side effects that you should report to your doctor or health director of health care marketing as soon as possible: allergic reactions like skin rash, itching or hives, swelling of the face, lips, or tongue breathing problems dizziness fast or irregular heartbeat feeling faint or lightheaded, falls fever and chills swelling of the hands and feet tightness in the chest Side effects that usually do not require medical attention (report to your doctor or health director of health care marketing if they continue or are bothersome): constipation or diarrhea headache What may interact with this medicine? Do not take this medicine with any of the following medications: -apomorphine -cisapride -dofetilide -dronedarone -pimozide -thioridazine -ziprasidone This medicine may also interact with the following medications: -carbamazepine -phenytoin -rifampicin -tramadol -other medicines that prolong the QT interval (cause an abnormal heart rhythm) What if I miss a dose? If you miss a dose, take it as soon as you can. If it is almost time for your next dose, take only that dose. Do not take double or extra doses. Where should I keep my medicine? Keep out of the reach of children. Store between 2 and 30 degrees C (36 and 86 degrees F). Throw away any unused medicine after the expiration date. What should I tell my health care provider before I take this medicine? They need to know if you have any of these conditions: heart disease history of irregular heartbeat liver disease low levels of magnesium or potassium in the blood an unusual or allergic reaction to ondansetron, granisetron, other medicines, foods, dyes, or preservatives or trying to get breast-feeding What should I watch for while using this medicine? Check with your doctor or health director of health care marketing as soon as you can if you have any sign of an allergic reaction. You have been given the following additional information: Headache, Unspecified Ondansetron Oral disintegrating tablet (Electronically signed by Rashad Ortez Dr. 09/06/2016 6:18)
--- NOTE | 2016-09-06 06:18 | ED MAR SUMMARY ---
..... Medication Administration Record Formerly [facility] [address] [place] [address] Patient: GISSELLE WILSON Visit ID: [id number] 71y, F Weight: 90.7 kg Height/Length: 66 in BMI: 32.3 ALLERGIES: morphine, Penicillin, Sulfa Antibiotics Start 18:43 09/04/2016 Marii Landis R.N., Stop 19:45 09/04/2016 Luz Mark R.N. Medication Administered: IV NS (SALINE), Dose: IV Fluids over 1 hour(s), Rate: 999 mL/hr, Dispensed: 1000 mL bag, Site: #1 right forearm. Medication Ordered: IV NS : initial bolus 1000 mL (1000 mL/hr), then none - for X1 (NOW). Given 18:43 09/04/2016 Marii Landis R.N. Medication Administered: REGLAN [IVP] (METOCLOPRAMIDE HCL), Dose: 10 mg IVP over 1 minute(s), Site: #1 right forearm. Medication Ordered: Reglan IV 10 mg (NOW). Given 18:45 09/04/2016 Marii Landis R.N. Medication Administered: BENADRYL [IVP] (DIPHENHYDRAMINE HCL), Dose: 25 mg IVP over 1 minute(s), Site: #1 right forearm. Medication Ordered: Benadryl IV 25 mg (NOW). Given 18:46 09/04/2016 Marii Landis R.N. Medication Administered: TORADOL [IVP], Dose: 30 mg IVP over 1 minute(s), Site: #1 right forearm. Medication Ordered: Toradol IV 30 mg (NOW). Given 18:49 09/04/2016 Marii Landis R.N. Medication Administered: DECADRON [IVP], Dose: 10 mg IVP over 3 minute(s), Site: #1 right forearm. Medication Ordered: Decadron IV 10 mg (NOW).
== END 2016-09-04 21:15 | disposition home or self-care (01) ==
LOC: ED SRH 17:59
DX: R51 Headache (principal); Z87.891 Personal history of nicotine dependence; Z79.899 Other long term (current) drug therapy; Z79.4 Long term (current) use of insulin

== ENCOUNTER 2016-09-07 14:49 | Emergency (ER) | payer OTHER ==
--- NOTE | 2016-09-07 18:41 | ED ORDER SUMMARY ---
..... Patient: GISSELLE WILSON OrderSheet [facility] VisitID: [id number] [place] [address] 71y, F Registration Date/Time: 09/07/2016 ORDER SHEET Weight: 90.7 kg (stated) Allergies: morphine, Penicillin, Sulfa Antibiotics GENERAL ORDERS: POC Glucose (15:09 09/07/2016 Suly R.N. verbal order read back to Viviane CRUZ) (15:09 Suly R.N.) CMP Urgent (15:10 09/07/2016 Suly R.N. verbal order read back to Viviane CRUZ) (15:10 Diegoelli R.N.) CBC w Diff Urgent (15:10 09/07/2016 Suly R.N. verbal order read back to Viviane CRUZ) (15:10 omanelli R.N.) UA-Culture if indicated Urgent (15:10 09/07/2016 Suly R.N. verbal order read back to Viviane CRUZ) (Ack 15:12 Roxanne) (17:10 Diegoelli R.N.) Pulse oximeter (15:10 09/07/2016 Suly R.N. verbal order read back to Viviane CRUZ) (15:10 Diegoelli R.N.) Troponin-I Urgent (16:59 09/07/2016 Viviane CRUZ) (Ack 17:02 Roxanne) (17:10 Diegoelli R.N.) CPK Urgent (16:59 09/07/2016 Viviane CRUZ) (Ack 17:02 Guanakitorpilar) (17:10 Diegoelli R.N.) Diet (Please order in Social[employer]) (1500 sergio Diabetic Diet) (17:26 09/07/2016 LNations ER Tech1 verbal order read back to Viviane CRUZ) (17:26 LNations ER Tech1) MEDICATION ORDERS: IV FLUIDS: IV Saline Lock (15:07 09/07/2016 Suly R.N. verbal order read back to Viviane CRUZ) (15:08 Suly R.N.) IV NS : initial bolus 500 mL (1000 mL/hr), then 150 mL/hr for 4h (NOW); Routine (16:58 09/07/2016 Viviane CRUZ) (17:19 Suly Harp) Insulin Reg IV 6 units (NOW) (16:58 09/07/2016 Viviane CRUZ) (17:19 Suly Harp) ORDER SHEET NOTES: [Electronically signed by Moni Hightower R.N. (22:20 09/07/2016)] [Electronically signed by Ethan Hsu MD (23:42 09/07/2016)] [Electronically locked/signed by Moni Hightower R.N. (22:20 09/07/2016)]
--- NOTE | 2016-09-07 18:41 | ED CLINICAL REPORT ---
Clinical Report - Physicians/Mid Levels [facility] [address] [place] [address] 09/07/2016 14:50 [id number] Time Seen: 15:04 Sep 07 2016. Arrived- By private vehicle. Historian- patient. CPT: ER phys charges level 4 (#[id number]). HISTORY OF PRESENT ILLNESS Chief Complaint: High blood sugar. ( This started today. Onset. (about 6 hours ago when her caregiver checked her blood sugar). She has had weakness. ( nausea).). At its maximum, severity described as moderate. When seen in the E.D., severity described as moderate. Modifying factors. Not worsened by anything. Not relieved by anything. This started today and is still present. No loss of appetite. She has had fatigue and weakness. Similar symptoms previously: Recent medical care: Not recently seen/assessed. REVIEW OF SYSTEMS No fever, sore throat, sinus drainage, nasal congestion or cough. No difficulty breathing, chest pain, nausea, vomiting or diarrhea. No black stools, bloody stools, difficulty with urination, skin rash or calf pain. No headache or blackouts. All systems otherwise negative, except as recorded above. PAST HISTORY Headache. Gastritis. Atypical Chest Pain. Benign Positional Vertigo. Weakness. Hypertension. Hypoxia. Influenza. Hypoglycemia. MRSA Infection. Dyspnea. UTI - Urinary Tract Infection. DVT - Deep Venous Thrombosis. Renal Insufficiency. Bronchitis. Blindness. Wound Infection. TIA - Transient Ischemic Attack. Concussion. Abrasion(s). Fall. Colon Cancer. Tetanus Status. Vomiting. Abdominal Pain. Immunizations. LNMP - Last Normal Menstrual Period. Myofascial Strain. Contusion. Anxiety Reaction. Arthritis. Back Pain. Coronary Artery Disease. Cataracts. CVA - Cerebrovascular Accident. Depression. Diabetes Mellitus. Hyperlipidemia. Peripheral Vascular Disease. Gastroesophageal Reflux Disease. --15:04 Ken Benítez R.N. ADDITIONAL SURGERIES: Abdominal Aortic Aneurysm Repair. Appendectomy. Colostomy. Colostomy takedown . Tonsillectomy. ADDITIONAL NOTES The nursing notes have been reviewed. PHYSICAL EXAM Vital Signs: 09/07/2016 14:52 BP: 121/68. HR: 59. RR: 16. O2 saturation: 98%. Temp: 99.2 F. Pain level now: 0/10. Appearance: Alert. No acute distress. Anxious. Eyes: Eyes normal inspection. ENT: Pharynx normal. Neck: Normal inspection. CVS: Normal heart rate and rhythm. Heart sounds normal. Pulses normal. Respiratory: No respiratory distress. Breath sounds normal. Chest nontender. Abdomen: Soft and nontender. Back: Normal inspection. Skin: Skin warm. Normal skin color. No rash. Extremities: Extremities exhibit normal ROM. No lower extremity edema. Neuro: Oriented X 3. No motor deficit. No sensory deficit. Reflexes normal. LABS, X-RAYS, AND EKG Laboratory Tests: UA-Culture if indicated: (NEREIDA: 09/07/2016 15:45) ( MsgRcvd 09/07/2016 16:24) Final results Test Result Flag Units (Reference) URINE COLOR YELLOW URINE APPEARANCE CLEAR URINE GLUCOSE 3+ (NEGATIVE) URINE BILIRUBIN NEGATIVE (NEGATIVE) URINE KETONE NEGATIVE (NEGATIVE) URINE SPECIFIC GRAVITY 1.015 (1.010-1.030) URINE PH 5.5 (5.0-8.0) URINE PROTEIN NEGATIVE (NEGATIVE) URINE UROBILINOGEN 0.2 EU/dL (0.2-1.0) URINE NITRITE NEGATIVE (NEGATIVE) URINE BLOOD TRACE-LYSED (NEGATIVE) URINE LEUK ESTERASE NEGATIVE (NEGATIVE) URINE RBC 0-1 rbc/hpf (0-1) URINE WBC 0-1 wbc/hpf (0-1) URINE EPITHELIAL CELLS 1-3 EPI/hpf (0-5) URINE BACTERIA NONE SEEN (NONE SEEN) URINE COMMENT CULT NOT INDICATED URINE CULTURES ARE SET-UP BASED ON THE FOLLOWING CRITERIA:POSITIVE NITRITEPOSITIVE LEUKOCYTE ESTERASEGREATER THAN 10 WHITE BLOOD CELLSMODERATE (2+) OR GREATER BACTERIA CBC w Diff: (NEREIDA: 09/07/2016 15:05) ( [facility] [place] 09/07/2016 15:21) Final results Test Result Flag Units (Reference) WHITE BLOOD COUNT 7.3 K/uL (4.5-11.5) RED BLOOD COUNT 4.26 M/uL (4.00-5.20) HEMOGLOBIN 12.1 gm/dL (12.0-16.0) HEMATOCRIT 35.3 L % (36.0-46.0) MEAN CELL VOLUME 83 fL (80-100) MEAN CORPUSCULAR HGB 28 pg (26-34) MEAN CORPUSCULAR HGB CONC 34 g/dL (31-37) RED CELL DISTRIBUTION WIDTH 14.0 % (11.6-14.8) PLATELET COUNT 152 K/uL (150-400) NEUTROPHIL % 69.7 % (50-75) LYMPH % 19.2 L % (25-40) MONO % 8.5 % (3-14) EOSINOPHIL % 2.0 % (0-4) BASOPHIL % 0.6 % (0-2) CMP: (NEREIDA: 09/07/2016 15:05) ( MsgRcvd 09/07/2016 16:16) Final results Test Result Flag Units (Reference) GLUCOSE 385 H mg/dL (70-110) BUN 28 H mg/dL (7-18) CREATININE 1.6 H mg/dL (0.6-1.3) Estimated GFR 33.97 mL/min Estimated GFR- 41.17 mL/min Note: Persistent reduction over 3 months in eGFR<60 mL/min/1.73 m2 defines CKD. Patients with eGFR values>=60 mL/min/1.73 m2 may also have CKD if evidence ofpersistent proteinuria. Additional information may be foundat www.kidney.org. SODIUM 136 mmol/L (136-145) POTASSIUM 4.7 mmol/L (3.5-5.1) CHLORIDE 104 mmol/L (98-107) CARBON DIOXIDE 25 mmol/L (21-32) CALCIUM 7.4 L mg/dL (8.5-10.1) TOTAL PROTEIN 6.0 L g/dL (6.4-8.2) ALBUMIN 2.9 L g/dL (3.3-5.0) BILIRUBIN, TOTAL 0.3 mg/dL (0.0-1.0) ALKALINE PHOSPHATASE 78 U/L (46-116) AST (SGOT) 17 U/L (15-37) ALT (SGPT) 16 U/L (12-78) . PROGRESS AND PROCEDURES Course of Care: IV NS Regular insulin 6 units IV BS 245 Pt eating lunch. No sign of infection . Patient/family counseled. Disposition: Discharged. Condition: stable and improved. CLINICAL IMPRESSION Persistent hyperglycemia IDDM. INSTRUCTIONS (Eat same thing at same time every day. Exercise the same amount at the same time every day. Keep record of food, activity and blood sugars.). Warnings: Further evaluation is necessary. GENERAL WARNINGS: Return or contact your physician immediately if your condition worsens or changes unexpectedly, if not improving as expected, or if other problems arise. Your Current Medications: CONTINUE TAKING THE FOLLOWING MEDICATIONS: Atorvastatin 80mg x1 tab daily*. Combigan Ophthalmic. Hydrochlorothiazide Oral : 25 mg daily. Lantanoprost Patricia 0.005% *. Lantus Subcutaneous : 85 units every AM. Lisinopril Oral : 40 mg daily. Methazolamide Oral : Tablet 25 mg, 1 tablet x2 daily. Paroxetine 40mg x2 tabs daily*. Pramipexole 0.25mg x1 tab at bedtime*. Ranitidine HCl Oral : 150 mg 2x a day. RisperiDONE Oral : Tablet Dispersible 0.5 mg, 1 tablet 2x a day. Timolol Mal Patricia 0.5% OP - 1 gtt x2 daily*. TraZODone HCl Oral : 50 mg, 1 1/2 tab at bedtime. Xarelto Oral : Tablet 15 mg, 1 tablet daily. Understanding of the discharge instructions verbalized by patient. Follow-up with: Shravan Retana MD, Family Practice, , [facility], [address] [place] [address] Follow up in one week. Call for an appointment. (Electronically signed by Ethan Hsu MD 09/07/2016 23:42)
--- NOTE | 2016-09-07 18:41 | ED ORDER SUMMARY ---
..... Patient: GISSELLE WILSON OrderSheet [facility] VisitID: [id number] [place] [address] 71y, F Registration Date/Time: 09/07/2016 ORDER SHEET Weight: 90.7 kg (stated) Allergies: morphine, Penicillin, Sulfa Antibiotics GENERAL ORDERS: POC Glucose (15:09 09/07/2016 Suly R.N. verbal order read back to Viviane CRUZ) (15:09 Suly R.N.) CMP Urgent (15:10 09/07/2016 Suly R.N. verbal order read back to Viviane CRUZ) (15:10 Diegoelli R.N.) CBC w Diff Urgent (15:10 09/07/2016 Suly R.N. verbal order read back to Viviane CRUZ) (15:10 omanelli R.N.) UA-Culture if indicated Urgent (15:10 09/07/2016 Suly R.N. verbal order read back to Viviane CRUZ) (Ack 15:12 Roxanne) (17:10 Diegoelli R.N.) Pulse oximeter (15:10 09/07/2016 Suly R.N. verbal order read back to Viviane CRUZ) (15:10 Diegoelli R.N.) Troponin-I Urgent (16:59 09/07/2016 Viviane CRUZ) (Ack 17:02 Roxanne) (17:10 Diegoelli R.N.) CPK Urgent (16:59 09/07/2016 Viviane CRUZ) (Ack 17:02 Guanakitorpilar) (17:10 Diegoelli R.N.) Diet (Please order in Rain) (1500 sergio Diabetic Diet) (17:26 09/07/2016 LNations ER Tech1 verbal order read back to Viviane CRUZ) (17:26 LNations ER Tech1) MEDICATION ORDERS: IV FLUIDS: IV Saline Lock (15:07 09/07/2016 Suly R.N. verbal order read back to Viviane CRUZ) (15:08 Suly R.N.) IV NS : initial bolus 500 mL (1000 mL/hr), then 150 mL/hr for 4h (NOW); Routine (16:58 09/07/2016 Viviane CRUZ) (17:19 Suly Harp) Insulin Reg IV 6 units (NOW) (16:58 09/07/2016 Viviane CRUZ) (17:19 Suly Harp) ORDER SHEET NOTES: [Electronically signed by Moni Hightower R.N. (22:20 09/07/2016)] [Electronically signed by Ethan Hsu MD (23:42 09/07/2016)] [Electronically locked/signed by Moni Hightower R.N. (22:20 09/07/2016)]
--- NOTE | 2016-09-07 18:41 | ED CLINICAL REPORT ---
Clinical Report - Physicians/Mid Levels [facility] [address] [place] [address] 09/07/2016 14:50 [id number] Time Seen: 15:04 Sep 07 2016. Arrived- By private vehicle. Historian- patient. CPT: ER phys charges level 4 (#[id number]). HISTORY OF PRESENT ILLNESS Chief Complaint: High blood sugar. ( This started today. Onset. (about 6 hours ago when her caregiver checked her blood sugar). She has had weakness. ( nausea).). At its maximum, severity described as moderate. When seen in the E.D., severity described as moderate. Modifying factors. Not worsened by anything. Not relieved by anything. This started today and is still present. No loss of appetite. She has had fatigue and weakness. Similar symptoms previously: Recent medical care: Not recently seen/assessed. REVIEW OF SYSTEMS No fever, sore throat, sinus drainage, nasal congestion or cough. No difficulty breathing, chest pain, nausea, vomiting or diarrhea. No black stools, bloody stools, difficulty with urination, skin rash or calf pain. No headache or blackouts. All systems otherwise negative, except as recorded above. PAST HISTORY Headache. Gastritis. Atypical Chest Pain. Benign Positional Vertigo. Weakness. Hypertension. Hypoxia. Influenza. Hypoglycemia. MRSA Infection. Dyspnea. UTI - Urinary Tract Infection. DVT - Deep Venous Thrombosis. Renal Insufficiency. Bronchitis. Blindness. Wound Infection. TIA - Transient Ischemic Attack. Concussion. Abrasion(s). Fall. Colon Cancer. Tetanus Status. Vomiting. Abdominal Pain. Immunizations. LNMP - Last Normal Menstrual Period. Myofascial Strain. Contusion. Anxiety Reaction. Arthritis. Back Pain. Coronary Artery Disease. Cataracts. CVA - Cerebrovascular Accident. Depression. Diabetes Mellitus. Hyperlipidemia. Peripheral Vascular Disease. Gastroesophageal Reflux Disease. --15:04 Ken Benítez R.N. ADDITIONAL SURGERIES: Abdominal Aortic Aneurysm Repair. Appendectomy. Colostomy. Colostomy takedown . Tonsillectomy. ADDITIONAL NOTES The nursing notes have been reviewed. PHYSICAL EXAM Vital Signs: 09/07/2016 14:52 BP: 121/68. HR: 59. RR: 16. O2 saturation: 98%. Temp: 99.2 F. Pain level now: 0/10. Appearance: Alert. No acute distress. Anxious. Eyes: Eyes normal inspection. ENT: Pharynx normal. Neck: Normal inspection. CVS: Normal heart rate and rhythm. Heart sounds normal. Pulses normal. Respiratory: No respiratory distress. Breath sounds normal. Chest nontender. Abdomen: Soft and nontender. Back: Normal inspection. Skin: Skin warm. Normal skin color. No rash. Extremities: Extremities exhibit normal ROM. No lower extremity edema. Neuro: Oriented X 3. No motor deficit. No sensory deficit. Reflexes normal. LABS, X-RAYS, AND EKG Laboratory Tests: UA-Culture if indicated: (NEREIDA: 09/07/2016 15:45) ( MsgRcvd 09/07/2016 16:24) Final results Test Result Flag Units (Reference) URINE COLOR YELLOW URINE APPEARANCE CLEAR URINE GLUCOSE 3+ (NEGATIVE) URINE BILIRUBIN NEGATIVE (NEGATIVE) URINE KETONE NEGATIVE (NEGATIVE) URINE SPECIFIC GRAVITY 1.015 (1.010-1.030) URINE PH 5.5 (5.0-8.0) URINE PROTEIN NEGATIVE (NEGATIVE) URINE UROBILINOGEN 0.2 EU/dL (0.2-1.0) URINE NITRITE NEGATIVE (NEGATIVE) URINE BLOOD TRACE-LYSED (NEGATIVE) URINE LEUK ESTERASE NEGATIVE (NEGATIVE) URINE RBC 0-1 rbc/hpf (0-1) URINE WBC 0-1 wbc/hpf (0-1) URINE EPITHELIAL CELLS 1-3 EPI/hpf (0-5) URINE BACTERIA NONE SEEN (NONE SEEN) URINE COMMENT CULT NOT INDICATED URINE CULTURES ARE SET-UP BASED ON THE FOLLOWING CRITERIA:POSITIVE NITRITEPOSITIVE LEUKOCYTE ESTERASEGREATER THAN 10 WHITE BLOOD CELLSMODERATE (2+) OR GREATER BACTERIA CBC w Diff: (NEREIDA: 09/07/2016 15:05) ( [facility] 09/07/2016 15:21) Final results Test Result Flag Units (Reference) WHITE BLOOD COUNT 7.3 K/uL (4.5-11.5) RED BLOOD COUNT 4.26 M/uL (4.00-5.20) HEMOGLOBIN 12.1 gm/dL (12.0-16.0) HEMATOCRIT 35.3 L % (36.0-46.0) MEAN CELL VOLUME 83 fL (80-100) MEAN CORPUSCULAR HGB 28 pg (26-34) MEAN CORPUSCULAR HGB CONC 34 g/dL (31-37) RED CELL DISTRIBUTION WIDTH 14.0 % (11.6-14.8) PLATELET COUNT 152 K/uL (150-400) NEUTROPHIL % 69.7 % (50-75) LYMPH % 19.2 L % (25-40) MONO % 8.5 % (3-14) EOSINOPHIL % 2.0 % (0-4) BASOPHIL % 0.6 % (0-2) CMP: (NEREIDA: 09/07/2016 15:05) ( MsgRcvd 09/07/2016 16:16) Final results Test Result Flag Units (Reference) GLUCOSE 385 H mg/dL (70-110) BUN 28 H mg/dL (7-18) CREATININE 1.6 H mg/dL (0.6-1.3) Estimated GFR 33.97 mL/min Estimated GFR- 41.17 mL/min Note: Persistent reduction over 3 months in eGFR<60 mL/min/1.73 m2 defines CKD. Patients with eGFR values>=60 mL/min/1.73 m2 may also have CKD if evidence ofpersistent proteinuria. Additional information may be foundat www.[email or web address].org. SODIUM 136 mmol/L (136-145) POTASSIUM 4.7 mmol/L (3.5-5.1) CHLORIDE 104 mmol/L (98-107) CARBON DIOXIDE 25 mmol/L (21-32) CALCIUM 7.4 L mg/dL (8.5-10.1) TOTAL PROTEIN 6.0 L g/dL (6.4-8.2) ALBUMIN 2.9 L g/dL (3.3-5.0) BILIRUBIN, TOTAL 0.3 mg/dL (0.0-1.0) ALKALINE PHOSPHATASE 78 U/L (46-116) AST (SGOT) 17 U/L (15-37) ALT (SGPT) 16 U/L (12-78) . PROGRESS AND PROCEDURES Course of Care: IV NS Regular insulin 6 units IV BS 245 Pt eating lunch. No sign of infection . Patient/family counseled. Disposition: Discharged. Condition: stable and improved. CLINICAL IMPRESSION Persistent hyperglycemia IDDM. INSTRUCTIONS (Eat same thing at same time every day. Exercise the same amount at the same time every day. Keep record of food, activity and blood sugars.). Warnings: Further evaluation is necessary. GENERAL WARNINGS: Return or contact your physician immediately if your condition worsens or changes unexpectedly, if not improving as expected, or if other problems arise. Your Current Medications: CONTINUE TAKING THE FOLLOWING MEDICATIONS: Atorvastatin 80mg x1 tab daily*. Combigan Ophthalmic. Hydrochlorothiazide Oral : 25 mg daily. Lantanoprost Patricia 0.005% *. Lantus Subcutaneous : 85 units every AM. Lisinopril Oral : 40 mg daily. Methazolamide Oral : Tablet 25 mg, 1 tablet x2 daily. Paroxetine 40mg x2 tabs daily*. Pramipexole 0.25mg x1 tab at bedtime*. Ranitidine HCl Oral : 150 mg 2x a day. RisperiDONE Oral : Tablet Dispersible 0.5 mg, 1 tablet 2x a day. Timolol Mal Patricia 0.5% OP - 1 gtt x2 daily*. TraZODone HCl Oral : 50 mg, 1 1/2 tab at bedtime. Xarelto Oral : Tablet 15 mg, 1 tablet daily. Understanding of the discharge instructions verbalized by patient. Follow-up with: Shravan Retana MD, Family Practice, , [facility], [address] [place] [address] Follow up in one week. Call for an appointment. (Electronically signed by Ethan Hsu MD 09/07/2016 23:42)
--- NOTE | 2016-09-07 18:41 | ED NURSING NOTES ---
Clinical Report - Nurses [facility] [address] [place] [address] 09/07/2016 14:50 [id number] Triage time 14:50 Sep 07 2016. Acuity: LEVEL 3. Chief Complaint: (High Blood sugar.). Alert. DAGMAR COMA SCORE: Dagmar Coma Scale: 15- eyes open spontaneously (4); best verbal response- oriented x 4 (5); best motor response- obeys commands (6). --15:05 Ken Benítez R.N. 14:52 09/07/16. BP: 121/68. HR: 59. RR: 16. O2 saturation: 98% on room air. Temp: 99.2 F. Pain level now: 0/10. --15:05 Ken Benítez R.N. Weight: 90.7 kg stated. Height/Length: 66 inches Per Patient. BMI: 32.3. --14:53 Ken Benítez R.N. Medications Atorvastatin 80mg x1 tab daily. Combigan Ophthalmic. Hydrochlorothiazide Oral 25 mg, daily. Lantanoprost Patricia 0.005% . Lantus Subcutaneous 85 units, every AM. Lisinopril Oral 40 mg, daily. --18:12 Ken Benítez R.N. Methazolamide Oral (Tablet 25 mg) 1 tablet, x2 daily. Paroxetine 40mg x2 tabs daily. Pramipexole 0.25mg x1 tab at bedtime. Ranitidine HCl Oral 150 mg, 2x a day. RisperiDONE Oral (Tablet Dispersible 0.5 mg) 1 tablet, 2x a day. Timolol Mal Patricia 0.5% OP - 1 gtt x2 daily. TraZODone HCl Oral 50 mg, 1 1/2 tab, at bedtime. Xarelto Oral (Tablet 15 mg) 1 tablet, daily. --18:12 Ken Benítez R.N. Allergies morphine. Penicillin. Sulfa Antibiotics. --15:03 Ken Benítez R.N. History Arrived by EMS. Historian: patient. ( IDDM with blood sugars > 400. Seen twice by EMS, the second time the Medics called her PCP and he recommended that she be taken to Hospital.). This started today. Onset. (about 6 hours ago when her caregiver checked her blood sugar). She has had weakness. ( nausea). 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 PAST MEDICAL HX: Immunizations: up-to-date. The patient is post-menopausal. SOCIAL HX: Smoker- current status unknown. History of drug use: marijuana. No alcohol use. No infectious disease exposure. ABUSE ASSESSMENT: No report of abuse. FALL RISK ASSESSMENT: Fall risk assessment completed. No fall risk identified. NUTRITIONAL RISK ASSESSMENT: The nutritional risk assessment revealed no deficiencies. FUNCTIONAL ASSESSMENT: Functional assessment: no impairments noted. LEARNING NEEDS ASSESSMENT: The learning needs assessment revealed no barriers. SKIN INTEGRITY ASSESSMENT: Skin integrity risk assessment completed. No skin integrity risk identified. --15:05 Ken Benítez R.N. PROBLEMS: Headache. Gastritis. Atypical Chest Pain. Benign Positional Vertigo. Weakness. Hypertension. Hypoxia. Influenza. Hypoglycemia. MRSA Infection. Dyspnea. UTI - Urinary Tract Infection. DVT - Deep Venous Thrombosis. Renal Insufficiency. Bronchitis. Blindness. Wound Infection. TIA - Transient Ischemic Attack. Concussion. Abrasion(s). Fall. Colon Cancer. Tetanus Status. Vomiting. Abdominal Pain. Immunizations. LNMP - Last Normal Menstrual Period. Myofascial Strain. Contusion. Anxiety Reaction. Arthritis. Back Pain. Coronary Artery Disease. Cataracts. CVA - Cerebrovascular Accident. Depression. Diabetes Mellitus. Hyperlipidemia. Peripheral Vascular Disease. Gastroesophageal Reflux Disease. --15:04 Ken Benítez R.N. ADDITIONAL SURGERIES: Abdominal Aortic Aneurysm Repair. Appendectomy. Colostomy. Colostomy takedown . Tonsillectomy. --15:04 Ken Benítez R.N. Interventions ID band on patient. To treatment room. --15:05 Ken Benítez R.N. PHYSICAL ASSESSMENT Ambulatory to room. GENERAL / NEURO / PSYCH: Alert. Oriented X 4. HEENT: No facial asymmetry noted. RESPIRATORY: Respirations not labored. CVS: Normal sinus rhythm noted. Pulses within normal limits. GI / : Abdomen soft and nontender. SKIN: Skin is warm and dry. Normal skin turgor. Skin breakdown noted. (LLQ sore that leaks serosanguinous liquid). --15:06 Ken Benítez R.N. NURSING PROGRESS NOTES Finger stick glucose: 389 mg/dL; performed by tech; result shown to the ED physician. --14:53 Ken Benítez R.N. Patient gowned. Reassurance given. Patient identifiers checked. Call light placed in reach. Side rails up x 2. Bed placed in lowest position. Brakes of bed on. Patient ready for evaluation- chart flagged and ED physician notified. --15:06 Ken Benítez R.N. 15:03 09/07/2016 Site #1 started via IV in the right antecubital space with an 20g angiocath, with aseptic technique and good blood return; one attempt. Blood drawn: rainbow set. Labeled in the presence of the patient and sent to the lab. Saline lock flushed with 10 mL saline (start by Anthony Rodriguez RN). --15:08 Ken Benítez R.N. 15:50 09/07/16. Patient ID band checked for patient name, birthdate and medical record number: patient confirmed. Instructions provided to collect clean catch urine and patient verbalized understanding. Clean catch urine collected with return of yellow-colored clear urine; odor is normal; sample sent to lab for urinalysis and culture. Specimen labeled in the presence of the patient. --15:58 Ken Benítez R.N. 16:00 09/07/16. BP: 134/39. HR: 57. RR: 16. O2 saturation: 95% on room air. --17:09 Ken Benítez R.N. 16:30 09/07/16. BP: 177/63. HR: 59. RR: 16. O2 saturation: 95% on room air. Pain level now: 0/10. --17:10 Ken Benítez R.N. 17:08 09/07/2016 Started bag #1 1000 mL IV Fluids IV NS (Saline); bolus of 500 mL over 30 minute(s) then at 150 mL/hr over 3.5 hour(s) via site #1 via IV pump. Allergies verified and confirmed 5 rights. IV patency established. IV site checked: no pain, redness, or swelling. IV flushed thoroughly pre- and post-medication administration. --17:19 Ken Benítez R.N. 17:14 09/07/2016 Insulin REG IVP 6 unit given over 2 minute(s) via site #1. Allergies verified and confirmed 5 rights. IV patency established. IV site checked: no pain, redness, or swelling. IV flushed thoroughly pre- and post-medication administration. IVP given by RN. --17:19 Ken Benítez R.N. 17:54 09/07/2016 IV Fluids IV NS via IV site #1 Rate Changed: bag #1 40 mL/hr via IV pump. IV patency established. IV site checked: no pain, redness, or swelling. IV flushed thoroughly. --17:54 Anthony Elizabeth R.N. 18:18 09/07/16. Finger stick glucose: 245 mg/dL; performed by nurse; result shown to the ED physician. --18:18 Ken Benítez R.N. DISPOSITION / DISCHARGE 19:32 09/07/16. No learning barriers present. Discharge instructions provided and reviewed with the patient. Reviewed warnings. Reviewed medication(s). Treatments reviewed. Reviewed referrals. Reviewed diet. Patient verbalized understanding. Written instructions provided in Jamaican. ( patient was also provided with a food and activity log to track her blood sugar and how she feels.). The patient was discharged home. She left the Emergency Department ambulatory and via private vehicle. ( Patient states she will wait in the lobby until her ride picks her up. This RN accompanied her to the lobby.). --19:32 Moni Hightower R.N. 19:25 09/07/16. BP: 146/64. HR: 62. RR: 18. O2 saturation: 96%. Temp: 97.9 F. Pain level now: 0/10. --19:32 Moni Hightower R.N. 19:25 09/07/16. BP: 146/64. HR: 62. RR: 18. O2 saturation: 96%. Temp: 97.9 F. Pain level now: 0/10. --19:32 Moni Hightower R.N. Departure time: 19:27. --19:32 Moni Hightower R.N. Locked/Released at 09/07/2016 22:20 by Moni Hightower R.N.
--- NOTE | 2016-09-07 23:42 | ED MAR SUMMARY ---
..... Medication Administration Record [facility] [address] [place] [address] Patient: GISSELLE WILSON Visit ID: [id number] 71y, F Weight: 90.7 kg Height/Length: 66 in BMI: 32.3 ALLERGIES: morphine, Penicillin, Sulfa Antibiotics Start 17:08 09/07/2016 Ken Benítez, RMargauxN. Medication Administered: IV NS (SALINE), Dose: IV Fluids over 3.5 hour(s), Rate: 150 mL/hr, Bolus: 500 mL over 30 minute(s), Dispensed: 1000 mL bag, Site: #1 right AC. Medication Ordered: IV NS : initial bolus 500 mL (1000 mL/hr), then 150 mL/hr for 4h (NOW); Routine. Given 17:14 09/07/2016 Ken Benítez, R.N. Medication Administered: INSULIN REG [IVP], Dose: 6 unit IVP over 2 minute(s), Site: #1 right AC. Medication Ordered: Insulin Reg IV 6 units (NOW).
--- NOTE | 2016-09-07 23:42 | ED DISCHARGE INSTRUCTIONS ---
Patient: GISSELLE WILSON General Instructions [facility] VisitID: [id number] [place] [address] 71y, F Registration Date/Time: 09/07/2016 Persistent hyperglycemia IDDM. INSTRUCTIONS (Eat same thing at same time every day. Exercise the same amount at the same time every day. Keep record of food, activity and blood sugars.). Warnings: Further evaluation is necessary. GENERAL WARNINGS: Return or contact your physician immediately if your condition worsens or changes unexpectedly, if not improving as expected, or if other problems arise. Your Current Medications: CONTINUE TAKING THE FOLLOWING MEDICATIONS: Atorvastatin 80mg x1 tab daily*. Combigan Ophthalmic. Hydrochlorothiazide Oral : 25 mg daily. Lantanoprost Patricia 0.005% *. Lantus Subcutaneous : 85 units every AM. Lisinopril Oral : 40 mg daily. Methazolamide Oral : Tablet 25 mg, 1 tablet x2 daily. Paroxetine 40mg x2 tabs daily*. Pramipexole 0.25mg x1 tab at bedtime*. Ranitidine HCl Oral : 150 mg 2x a day. RisperiDONE Oral : Tablet Dispersible 0.5 mg, 1 tablet 2x a day. Timolol Mal Patricia 0.5% OP - 1 gtt x2 daily*. TraZODone HCl Oral : 50 mg, 1 1/2 tab at bedtime. Xarelto Oral : Tablet 15 mg, 1 tablet daily. Understanding of the discharge instructions verbalized by patient. Follow-up with: Shravan Retana MD, [facility], , [facility], [address] [place] [address] Follow up in one week. Call for an appointment. (Electronically signed by Ethan Hsu MD 09/07/2016 23:42)
--- NOTE | 2016-09-07 23:42 | ED MED RECONCILIATION SUMMARY ---
Patient: GISSELLE WILSON Medication Reconciliation Report [facility] VisitID: [id number] [address] [place] [address] 71y, F Registration Date/Time: 09/07/2016 Weight: 90.7 kg Height/Length: 66 in. BMI: 32.3 ALLERGIES: morphine, Penicillin, Sulfa Antibiotics The patient's Home Medications are listed below: CONTINUE TAKING THE FOLLOWING MEDICATIONS: Atorvastatin 80mg x1 tab daily Combigan Ophthalmic Hydrochlorothiazide Oral 25 mg, daily Lantanoprost Patricia 0.005% Lantus Subcutaneous 85 units, every AM Lisinopril Oral 40 mg, daily Methazolamide Oral (25 mg) 1 tablet, x2 daily Paroxetine 40mg x2 tabs daily Pramipexole 0.25mg x1 tab at bedtime Ranitidine HCl Oral 150 mg, 2x a day RisperiDONE Oral (0.5 mg) 1 tablet, 2x a day Timolol Mal Patricia 0.5% OP - 1 gtt x2 daily TraZODone HCl Oral 50 mg, 1 1/2 tab, at bedtime Xarelto Oral (15 mg) 1 tablet, daily The source(s) of the original Home Medication information: Not obtained. The following Medications were given to the patient in the Emergency Department: IV NS IV Fluids bolus 500 mL over 30 minute(s), then 150 mL/hr, administered: 09/07/2016 5:08:00 PM Insulin REG [IVP] IVP 6 unit, administered: 09/07/2016 5:14:00 PM The following Medications were prescribed to the patient: None.
--- NOTE | 2016-09-07 23:42 | ED MED RECONCILIATION SUMMARY ---
Patient: GISSELLE WILSON Medication Reconciliation Report [facility] VisitID: [id number] [address] [place] [address] 71y, F Registration Date/Time: 09/07/2016 Weight: 90.7 kg Height/Length: 66 in. BMI: 32.3 ALLERGIES: morphine, Penicillin, Sulfa Antibiotics The patient's Home Medications are listed below: CONTINUE TAKING THE FOLLOWING MEDICATIONS: Atorvastatin 80mg x1 tab daily Combigan Ophthalmic Hydrochlorothiazide Oral 25 mg, daily Lantanoprost Patricia 0.005% Lantus Subcutaneous 85 units, every AM Lisinopril Oral 40 mg, daily Methazolamide Oral (25 mg) 1 tablet, x2 daily Paroxetine 40mg x2 tabs daily Pramipexole 0.25mg x1 tab at bedtime Ranitidine HCl Oral 150 mg, 2x a day RisperiDONE Oral (0.5 mg) 1 tablet, 2x a day Timolol Mal Patricia 0.5% OP - 1 gtt x2 daily TraZODone HCl Oral 50 mg, 1 1/2 tab, at bedtime Xarelto Oral (15 mg) 1 tablet, daily The source(s) of the original Home Medication information: Not obtained. The following Medications were given to the patient in the Emergency Department: IV NS IV Fluids bolus 500 mL over 30 minute(s), then 150 mL/hr, administered: 09/07/2016 5:08:00 PM Insulin REG [IVP] IVP 6 unit, administered: 09/07/2016 5:14:00 PM The following Medications were prescribed to the patient: None.
--- NOTE | 2016-09-07 23:42 | ED MAR SUMMARY ---
..... Medication Administration Record [facility] [address] [place] [address] Patient: GISSELLE WILSON Visit ID: [id number] 71y, F Weight: 90.7 kg Height/Length: 66 in BMI: 32.3 ALLERGIES: morphine, Penicillin, Sulfa Antibiotics Start 17:08 09/07/2016 Ken Benítez, RMargauxN. Medication Administered: IV NS (SALINE), Dose: IV Fluids over 3.5 hour(s), Rate: 150 mL/hr, Bolus: 500 mL over 30 minute(s), Dispensed: 1000 mL bag, Site: #1 right AC. Medication Ordered: IV NS : initial bolus 500 mL (1000 mL/hr), then 150 mL/hr for 4h (NOW); Routine. Given 17:14 09/07/2016 Ken Benítez, R.N. Medication Administered: INSULIN REG [IVP], Dose: 6 unit IVP over 2 minute(s), Site: #1 right AC. Medication Ordered: Insulin Reg IV 6 units (NOW).
--- NOTE | 2016-09-07 23:42 | ED DISCHARGE INSTRUCTIONS ---
Patient: GISSELLE WILSON General Instructions [facility] VisitID: [id number] [place] [address] 71y, F Registration Date/Time: 09/07/2016 Persistent hyperglycemia IDDM. INSTRUCTIONS (Eat same thing at same time every day. Exercise the same amount at the same time every day. Keep record of food, activity and blood sugars.). Warnings: Further evaluation is necessary. GENERAL WARNINGS: Return or contact your physician immediately if your condition worsens or changes unexpectedly, if not improving as expected, or if other problems arise. Your Current Medications: CONTINUE TAKING THE FOLLOWING MEDICATIONS: Atorvastatin 80mg x1 tab daily*. Combigan Ophthalmic. Hydrochlorothiazide Oral : 25 mg daily. Lantanoprost Patricia 0.005% *. Lantus Subcutaneous : 85 units every AM. Lisinopril Oral : 40 mg daily. Methazolamide Oral : Tablet 25 mg, 1 tablet x2 daily. Paroxetine 40mg x2 tabs daily*. Pramipexole 0.25mg x1 tab at bedtime*. Ranitidine HCl Oral : 150 mg 2x a day. RisperiDONE Oral : Tablet Dispersible 0.5 mg, 1 tablet 2x a day. Timolol Mal Patricia 0.5% OP - 1 gtt x2 daily*. TraZODone HCl Oral : 50 mg, 1 1/2 tab at bedtime. Xarelto Oral : Tablet 15 mg, 1 tablet daily. Understanding of the discharge instructions verbalized by patient. Follow-up with: Shravan Retana MD, [facility], , [facility], [address] [place] [address] Follow up in one week. Call for an appointment. (Electronically signed by Ethan Hsu MD 09/07/2016 23:42)
== END 2016-09-07 19:27 | disposition home or self-care (01) ==
LOC: ED SRH 14:49
DX: E11.65 Type 2 diabetes mellitus with hyperglycemia (principal); I10 Essential (primary) hypertension; I25.10 Atherosclerotic heart disease of native coronary artery without angina pectoris; E78.5 Hyperlipidemia, unspecified; K21.9 Gastro-esophageal reflux disease without esophagitis; Z79.4 Long term (current) use of insulin; Z79.899 Other long term (current) drug therapy; Z88.0 Allergy status to penicillin; Z88.2 Allergy status to sulfonamides; Z88.5 Allergy status to narcotic agent
CPT/HCPCS: 81460; 90004; 90074; 90098; 90100; 90616; 92610; 95059